=== PATIENT | male | born 1950 | race Caucasian/White ===

== ENCOUNTER 2018-12-22 09:35 | Inpatient (IN) ==
[2018-12-22] MEDS ORDERED: SODIUM CHLORIDE 0.9% 500 ML IV SCH (10:00)
[2018-12-22 10:09] LABS: Basophils # (auto) 0.03 K/uL (0-0.2); Basophils % (auto) 0.3 %; Hematocrit (blood only) 44.3 % (42-52); Hemoglobin 15.5 g/dL (14.0-18.0); Immature Granulocytes # (auto) 0.02 K/uL (0.00-0.02); Immature Granulocytes % (auto) 0.2 %; Mean Corpuscular Volume 80.8 fL (80-100); Mean Platelet Volume 10.4 fL (7.4-10.4); Monocytes # (auto) 0.59 K/uL (0.11-0.59); Monocytes % (auto) 5.1 %; Neutrophils # (auto) 10.02 K/uL (1.4-6.5); Neutrophils % (auto) 87.4 %; Platelet Count 208 K/uL (130-400); RDW Coefficient of Variation 12.9 % (11.5-14.5); RDW Standard Deviation 37.8 fL (36.4-46.3); Red Blood Count 5.48 M/uL (4.7-6.1); White Blood Count 11.46 K/uL (4.8-10.8)
--- NOTE | 2018-12-22 10:15 | XRay Report ---
XR chest 1V portable HISTORY: 68 years-old Male weakness acute weakness COMPARISON: Chest radiograph 08/04/2008 TECHNIQUE: Portable AP view of the chest FINDINGS: Cardiomediastinal and hilar silhouettes are within normal limits. There is no pneumothorax, pleural e ffusion, focal airspace consolidation or overt pulmonary edema. Bones of the chest appear grossly int act. IMPRESSION: No acute process. The above report was generated using voice recognition software. It may contain grammatical, syntax o r spelling errors. Electronically signed by: Hemanth Acuña M.D. 12/22/2018 10:14 AM
[2018-12-22 10:16] LABS: Alanine Aminotransferase 33 U/L (12-78); Albumin Level 3.6 gm/dl (3.4-5.0); Aspartate Aminotransferase 33 U/L (15-37); BUN Creatinine Ratio 12.4 (10-20); Blood Urea Nitrogen 14 mg/dl (7-18); Calcium 8.9 mg/dl (8.5-10.1); Carbon Dioxide 27 mmol/L (21-32); Chloride 98 mmol/L (98-107); Creatinine Clr Calc Pharmacy 80.9 ml/min; Est GFR (African American) 80.6; Est GFR (Non-African American) 69.6; Glucose 167 mg/dl (70-99); Potassium 3.9 mmol/L (3.5-5.1); Sodium 134 mmol/L (136-145)
[2018-12-22 10:22] LABS: Prothrombin Time 10.4 Seconds (9.0-12.0)
[2018-12-22 10:27] LABS: Albumin Globulin Ratio 0.8 (0.9-2); Alkaline Phosphatase 76 U/L (45-117); Globulin 4.3 gm/dl (2.5-4.0); Total Protein 7.9 gm/dl (6.4-8.2); Troponin I < 0.015 ng/ml (0-0.045)
--- NOTE | 2018-12-22 10:56 | CT Scan Report ---
CT head/brain wo con CLINICAL HISTORY: 68 years-old Male with left sided weakness. Acute strokelike symptoms with left-si ded weakness TECHNIQUE: Multiple axial CT images of the head were obtained without contrast. A dose lowering tech nique was utilized adhering to the principles of ALARA. CT DOSE: 537.48 mGy.cm COMPARISON: None. FINDINGS: Study limited secondary to patient positioning and motion artifact. No acute intracranial hemorrhage, midline shift, intracranial mass, hydrocephalus, territorial ischemia or abnormal extra-axial collec tion. Age-related involutional changes. Scattered ill-defined hypodensities about the white matter lopez ggest chronic microvascular ischemic changes. The calvarium is intact. Note is made of disconjugate gaze. Soft tissues are unremarkable. The parana esme sinuses, mastoid air cells, and middle ear cavities are clear. IMPRESSION: No acute intracranial abnormality. The above report was generated using voice recognition software. It may contain grammatical, syntax o r spelling errors. Electronically signed by: Hemanth Acuña M.D. 12/22/2018 10:55 AM
[2018-12-22] MEDS ORDERED: ASPIRIN CHEW 324 MG PO STA ×2 (11:27→11:28)
[2018-12-22] MEDS ORDERED: HydrALAZINE HCL 20 MG/ML VIAL IV ONE (11:28)
--- NOTE | 2018-12-22 11:32 | Emergency Department Note ---
Entered by Marlon Ramirez acting as a scribe for Memo Sebastian DO History of Present Illness General Chief complaint: Weakness Time Seen by Provider: 12/22/18 09:49 Source: patient and family (girlfriend) Mode of arrival: EMS History of Present Illness Provider complaint: weakness Onset (ago): day(s) (last night around 1999) Location: upper extremity, lower extremity and left Pain Consistency: + other (sudden) Quality: + other (weakness) Associated symptoms: + confusion and + other (left leg feels like it's "wrapped in concrete") The patient is a 68 year old male who presents to the Emergency Room via EMS with complaints of sudden weakness that started in the middle of the night last night. The patient reports that around [address] home from [facility] he noticed slight pins and needles in his left arm. The patient further reports that he fell off the couch and reports he was unable to get up because his arm kept giving out. The patient's girl friend reports on the way home from [facility], the patient experienced a short episode of confusion and asked what bowen he should be in to go home which is atypical for him. She denies that the patient had any other episodes of confusion. The patient also reports that his left leg feels like it's "wrapped in concrete." The patient's girlfriend states that she found the patient on the floor near the couch this morning and reports that the patient was unable to get up and walk so EMS was called. The patient states his weakness has stayed about the same. The patient denies any other medical problems, prescribed medications, alcohol or tobacco use. Home Medications Home Medications Medication Instructions Recorded Confirmed Type No Known Home Medications 12/22/18 12/22/18 History Allergies Allergy/AdvReac Type Severity Reaction Status Date / Time No Known Allergies Allergy Unverified 12/22/18 09:57 Past Med/Surg History Medical History No known health problems Surgical History H/O arthroscopic knee surgery History of excision of pilonidal cyst History of vasectomy History of tonsillectomy and adenoidectomy Family History Father , 82 T2DM (type 2 diabetes mellitus) CAD (coronary artery disease) Multiple complications of type 2 diabetes mellitus Mother T2DM (type 2 diabetes mellitus) Other Family history of diabetes mellitus Social History marital status: Single Current Living Situation: Significant Other Current Living Situation Comment: Lives with girlfriend Other Information That Helps Us Care for You: No Feels Safe at Home: Yes Safety Concerns: Feels Safe At This Time Smoking Status: Current some day smoker Tobacco Type: smokeless tobacco Cigarettes per Day: Quit smoking 10 + years ago; chews 1 can q3days Second Hand Exposure: No Tobacco Cessation Education Requested by Patient: No Hx Alcohol Use: Yes Alcohol Intake Frequency: holidays/special occasions only Hx Substance Use: No Beliefs That Will Affect Care: None Preferred Language: Yi Communication Ability: Effective Review of Systems See HPI for pertinent positives & negatives. and A total of 10 systems reviewed and were otherwise negative Physical Exam Vital Signs Vital Signs - 24 hr 12/22/18 09:12 12/22/18 09:34 12/22/18 09:41 Temperature 37.1 C Temperature Source Oral Sepsis Recent Fever Within 48 Hours No Sepsis Action Taken by Nursing No Action Required Pulse Rate 75 74 74 Pulse Rhythm Regular Pulse Strength Normal Respiratory Rate 20 21 24 Respiratory Effort / Characteristics Non-Labored Respiratory Depth Normal Respiratory Pattern Regular Blood Pressure 201/117 H 201/117 H Blood Pressure Mean 145 145 Blood Pressure Position Lying Pulse Oximetry 94 96 96 Oxygen Delivery Method Room Air 12/22/18 09:50 12/22/18 09:58 12/22/18 10:00 Temperature Temperature Source Sepsis Recent Fever Within 48 Hours Sepsis Action Taken by Nursing Pulse Rate 71 78 Pulse Rhythm Pulse Strength Respiratory Rate 16 14 Respiratory Effort / Characteristics Respiratory Depth Respiratory Pattern Blood Pressure Blood Pressure Mean Blood Pressure Position Pulse Oximetry 97 94 97 Oxygen Delivery Method Room Air 12/22/18 10:10 12/22/18 10:20 12/22/18 10:30 Temperature Temperature Source Sepsis Recent Fever Within 48 Hours Sepsis Action Taken by Nursing Pulse Rate 80 76 74 Pulse Rhythm Pulse Strength Respiratory Rate 17 20 16 Respiratory Effort / Characteristics Respiratory Depth Respiratory Pattern Blood Pressure Blood Pressure Mean Blood Pressure Position Pulse Oximetry 96 97 96 Oxygen Delivery Method 12/22/18 10:49 12/22/18 10:50 12/22/18 10:51 Temperature Temperature Source Sepsis Recent Fever Within 48 Hours Sepsis Action Taken by Nursing Pulse Rate 76 70 75 Pulse Rhythm Pulse Strength Respiratory Rate 11 L 19 20 Respiratory Effort / Characteristics Respiratory Depth Respiratory Pattern Blood Pressure 177/106 H Blood Pressure Mean 129 Blood Pressure Position Pulse Oximetry 96 96 Oxygen Delivery Method 12/22/18 11:00 12/22/18 11:10 12/22/18 11:20 Temperature Temperature Source Sepsis Recent Fever Within 48 Hours Sepsis Action Taken by Nursing Pulse Rate 68 79 76 Pulse Rhythm Pulse Strength Respiratory Rate 18 20 26 H Respiratory Effort / Characteristics Respiratory Depth Respiratory Pattern Blood Pressure Blood Pressure Mean Blood Pressure Position Pulse Oximetry 96 Oxygen Delivery Method 12/22/18 11:28 12/22/18 11:30 12/22/18 11:32 Temperature Temperature Source Sepsis Recent Fever Within 48 Hours Sepsis Action Taken by Nursing Pulse Rate 78 76 78 Pulse Rhythm Pulse Strength Respiratory Rate 16 18 14 Respiratory Effort / Characteristics Respiratory Depth Respiratory Pattern Blood Pressure 202/128 H 199/117 H Blood Pressure Mean 152 144 Blood Pressure Position Pulse Oximetry 96 97 93 Oxygen Delivery Method 12/22/18 11:40 12/22/18 11:50 12/22/18 12:00 Temperature Temperature Source Sepsis Recent Fever Within 48 Hours Sepsis Action Taken by Nursing Pulse Rate 76 75 74 Pulse Rhythm Pulse Strength Respiratory Rate 15 18 19 Respiratory Effort / Characteristics Respiratory Depth Respiratory Pattern Blood Pressure Blood Pressure Mean Blood Pressure Position Pulse Oximetry 95 96 Oxygen Delivery Method 12/22/18 12:04 12/22/18 12:10 12/22/18 12:20 Temperature Temperature Source Sepsis Recent Fever Within 48 Hours Sepsis Action Taken by Nursing Pulse Rate 75 81 Pulse Rhythm Pulse Strength Respiratory Rate 16 18 Respiratory Effort / Characteristics Non-Labored Spontaneous Respiratory Depth Normal Respiratory Pattern Regular Blood Pressure Blood Pressure Mean Blood Pressure Position Pulse Oximetry 98 Oxygen Delivery Method Room Air 12/22/18 12:30 12/22/18 12:32 12/22/18 12:34 Temperature Temperature Source Sepsis Recent Fever Within 48 Hours Sepsis Action Taken by Nursing Pulse Rate 78 77 79 Pulse Rhythm Pulse Strength Respiratory Rate 15 25 H 15 Respiratory Effort / Characteristics Respiratory Depth Respiratory Pattern Blood Pressure 195/128 H Blood Pressure Mean 150 Blood Pressure Position Pulse Oximetry 97 97 97 Oxygen Delivery Method CONSTITUTIONAL/VITAL SIGNS: Reviewed / noted above. GENERAL: Non-toxic in appearance. INTEGUMENTARY: Warm, dry, and Colon. HEAD: Normocephalic. EYES: without scleral icterus or trauma. ENT/OROPHARYNX: clear and moist. LYMPHADENOPATHY/NECK: Is supple without lymphadenopathy or meningismus. RESPIRATORY: Lungs clear and equal. CARDIOVASCULAR: Regular rate and rhythm. GI/ABDOMEN: Soft and nontender. No organomegaly or pulsatile mass. No rebound or guarding. Normal bowel sounds. EXTREMITIES: Warm and well perfused. Moderate weakness to left arm and left leg. BACK: No CVA tenderness. NEUROLOGICAL: Intact without focal deficits. PSYCHIATRIC: normal affect. MUSCULOSKELETAL: Normally developed with good muscle tone. Course 949: Past medical records reviewed. The patient was evaluated in room A10, and a complete history and physical examination were performed. 1135: I reviewed the patient's case with Dr. Daily Loda Neurology. 1138: I reviewed the patient's case with Anna Schulte PA-C. She and her attending[facility] the patient for further management. Reevaluation(s) Reevaluation #1: Dr. Calhoun [facility] Time: 11:35 Administered Medications Ioversol (Optiray 320 125ml) 119 ml IV ONCE PRN PRN Reason: Interaction Checking Stop: 12/26/18 12:47 Last Admin: 12/22/18 12:49 Dose: 119 ml Discontinued Medications Al Hydrox/Mg Hydrox/Simethicone () 1 dose PO ONE ONE Stop: 12/22/18 11:35 Last Admin: 12/22/18 12:09 Dose: Not Given Al Hydrox/Mg Hydrox/Simethicone (Maalox) Confirm Administered Dose 30 ml .ROUTE .STK-MED ONE Stop: 12/22/18 12:08 Last Admin: 12/22/18 12:09 Dose: 30 ml Admin: 12/22/18 12:09 Dose: 30 ml Aspirin (Aspirin) 324 mg PO NOW STA Stop: 12/22/18 11:28 Last Admin: 12/22/18 12:09 Dose: 324 mg Aspirin (Aspirin) 324 mg PO NOW STA Stop: 12/22/18 11:29 Last Admin: 12/22/18 12:09 Dose: Not Given Hydralazine HCl (Hydralazine Hcl) 5 mg IV NOW ONE Stop: 12/22/18 11:29 Last Admin: 12/22/18 12:10 Dose: 5 mg Sodium Chloride (Nss) 500 mls @ 999 mls/hr IV .Q31M MARIA D Stop: 12/22/18 10:30 Last Infusion: 12/22/18 10:46 Dose: 0 mls/hr Admin: 12/22/18 10:03 Dose: 999 mls/hr Lidocaine HCl (Viscous Lidocaine 2%) Confirm Administered Dose 15 ml .ROUTE .STK -MED ONE Stop: 12/22/18 12:08 Last Admin: 12/22/18 12:09 Dose: 7.5 ml Morphine Sulfate (Morphine Sulfate) 4 mg IV NOW STA Stop: 12/22/18 12:40 Last Admin: 12/22/18 13:11 Dose: 4 mg Medical Decision Making Differential Diagnosis Differential diagnosis: Etiologies such as metabolic, infection, hypo/hyperglycemia, electrolyte abnormalities, cardiac sources, intracerebral event, toxicologic, neurologic, as well as others were entertained. Medical Records Attestation: I reviewed the patient's medical records. Home Medications Current Medication List: was personally reviewed by me Laboratory Data Attestation: I reviewed the patient's lab results. Result diagrams: 12/22/18 09:40 12/22/18 09:40 Lab Results 12/22/18 12/22/18 12/22/18 Range/Units 09:40 09:40 09:40 WBC 11.46 H (4.8-10.8) K/uL RBC 5.48 (4.7-6.1) M/uL Hgb 15.5 (14.0-18.0) g/dL Hct 44.3 (42-52) % MCV 80.8 (80-100) fL MCH 28.3 (25-34) pg MCHC 35.0 (32-36) g/dL RDW Std Deviation 37.8 (36.4-46.3) fL RDW Coeff of Sun 12.9 (11.5-14.5) % Plt Count 208 (130-400) K/uL MPV 10.4 (7.4-10.4) fL Immature Gran % (Auto) 0.2 % Neut % (Auto) 87.4 % Lymph % (Auto) 7.0 % [place] % (Auto) 5.1 % Eos % (Auto) 0.0 % Baso % (Auto) 0.3 % Immature Gran # (Auto) 0.02 (0.00-0.02) K/uL Neut # (Auto) 10.02 H (1.4-6.5) K/uL Lymph # (Auto) 0.80 L (1.2-3.4) K/uL [place] # (Auto) 0.59 (0.11-0.59) K/uL Eos # (Auto) 0.00 (0-0.5) K/uL Baso # (Auto) 0.03 (0-0.2) K/uL PT 10.4 (9.0-12.0) Seconds INR 1.0 (0.9-1.1) Sodium 134 L (136-145) mmol/L Potassium 3.9 (3.5-5.1) mmol/L Chloride 98 (98-107) mmol/L Carbon Dioxide 27 (21-32) mmol/L Anion Gap 9.0 (3-11) BUN 14 (7-18) mg/dl Creatinine 1.10 (0.6-1.4) mg/dl Est Cr Clr Drug Dosing 80.9 ml/min Est GFR ( Amer) 80.6 Est GFR (Non-Af Amer) 69.6 BUN/Creatinine Ratio 12.4 (10-20) Glucose 167 H (70-99) mg/dl POC Glucose (70-99) Estimat Average Glucose mg/dl Hemoglobin A1c (4.5-5.6) % Calcium 8.9 (8.5-10.1) mg/dl Total Bilirubin 1.0 (0.2-1) mg/dl AST 33 (15-37) U/L ALT 33 (12-78) U/L Alkaline Phosphatase 76 (45-117) U/L Troponin I < 0.015 (0-0.045) ng/ml Total Protein 7.9 (6.4-8.2) gm/dl Albumin 3.6 (3.4-5.0) gm/dl Globulin 4.3 H (2.5-4.0) gm/dl Albumin/Globulin Ratio 0.8 L (0.9-2) TSH 2.680 (0.300-4.500) uIu/ml 12/22/18 12/22/18 Range/Units 09:40 09:43 WBC (4.8-10.8) K/uL RBC (4.7-6.1) M/uL Hgb (14.0-18.0) g/dL Hct (42-52) % MCV (80-100) fL MCH (25-34) pg MCHC (32-36) g/dL RDW Std Deviation (36.4-46.3) fL RDW Coeff of Sun (11.5-14.5) % Plt Count (130-400) K/uL MPV (7.4-10.4) fL Immature Gran % (Auto) % Neut % (Auto) % Lymph % (Auto) % [place] % (Auto) % Eos % (Auto) % Baso % (Auto) % Immature Gran # (Auto) (0.00-0.02) K/uL Neut # (Auto) (1.4-6.5) K/uL Lymph # (Auto) (1.2-3.4) K/uL [place] # (Auto) (0.11-0.59) K/uL Eos # (Auto) (0-0.5) K/uL Baso # (Auto) (0-0.2) K/uL PT (9.0-12.0) Seconds INR (0.9-1.1) Sodium (136-145) mmol/L Potassium (3.5-5.1) mmol/L Chloride (98-107) mmol/L Carbon Dioxide (21-32) mmol/L Anion Gap (3-11) BUN (7-18) mg/dl Creatinine (0.6-1.4) mg/dl Est Cr Clr Drug Dosing ml/min Est GFR ( Amer) Est GFR (Non-Af Amer) BUN/Creatinine Ratio (10-20) Glucose (70-99) mg/dl POC Glucose 160 H (70-99) Estimat Average Glucose 177 mg/dl Hemoglobin A1c 7.8 H (4.5-5.6) % Calcium (8.5-10.1) mg/dl Total Bilirubin (0.2-1) mg/dl AST (15-37) U/L ALT (12-78) U/L Alkaline Phosphatase (45-117) U/L Troponin I (0-0.045) ng/ml Total Protein (6.4-8.2) gm/dl Albumin (3.4-5.0) gm/dl Globulin (2.5-4.0) gm/dl Albumin/Globulin Ratio (0.9-2) TSH (0.300-4.500) uIu/ml Imaging Data Radiologist's Impression: Radiology results as stated below per my review and the radiologist's interpretation: XR chest 1V portable HISTORY: 68 years-old Male weakness acute weakness COMPARISON: Chest radiograph 08/04/2008 TECHNIQUE: Portable AP view of the chest FINDINGS: Cardiomediastinal and hilar silhouettes are within normal limits. There is no pneumothorax, pleural effusion, focal airspace consolidation or overt pulmonary edema. Bones of the chest appear grossly intact. IMPRESSION: No acute process. The above report was generated using voice recognition software. It may contain grammatical, syntax or spelling errors. Electronically signed by: Hemanth Acuña M.D. 12/22/2018 10:[address] head/brain wo con CLINICAL HISTORY: 68 years-old Male with left sided weakness. Acute strokelike symptoms with left-sided weakness TECHNIQUE: Multiple axial CT images of the head were obtained without contrast. A dose lowering technique was utilized adhering to the principles of ALARA. CT DOSE: 537.48 mGy.cm COMPARISON: None. FINDINGS: Study limited secondary to patient positioning and motion artifact. No acute intracranial hemorrhage, midline shift, intracranial mass, hydrocephalus, territorial ischemia or abnormal extra-axial collection. Age-related involutional changes. Scattered ill-defined hypodensities about the white matter suggest chronic microvascular ischemic changes. The calvarium is intact. Note is made of disconjugate gaze. Soft tissues are unremarkable. The paranasal sinuses, mastoid air cells, and middle ear cavities are clear. IMPRESSION: No acute intracranial abnormality. The above report was generated using voice recognition software. It may contain grammatical, syntax or spelling errors. Electronically signed by: Hemanth Acuña M.D. 12/22/2018 10:[address] angio neck with con, CT angio head w con CLINICAL HISTORY: 68 years-old Male with cva. Acute strokelike symptoms COMPARISON STUDY: CT head of same day TECHNIQUE: Following the IV administration of 119 ml of Optiray 320, CT angiogram of the neck was performed from the aortic arch to the skull apex. Images are reviewed in the axial, sagittal, and coronal planes. 3-D MIPS images are created and assessed. IV contrast was administered without complication. All measurements were calculated based on NASCET criteria. A dose lowering technique was utilized adhering to the principles of ALARA. CT DOSE: 570.13 mGy.cm FINDINGS: Normal three-vessel morphology of aortic arch. The imaged bilateral subclavian arteries are widely patent. Mild mostly atheromatous plaque formation about the bilateral carotid bulbs with less than 50% luminal narrowing. The bilateral internal carotid arteries are otherwise widely patent and unremarkable. Mild luminal narrowing at the proximal aspect of the left M1 segment on image 99 series 3 secondary to atheromatous plaque. The remainder of the bilateral middle and anterior cerebral arteries are unremarkable and widely patent. The anterior communicating artery appears normal. The vertebral arteries appear codominant and are widely patent without aneurysm , dissection, high-grade stenosis or proximal branch occlusion. Basilar artery is also patent and unremarkable. The bilateral posterior cerebral arteries appear widely patent and within normal limits. Cerebral venous sinuses are also patent and unremarkable. Lung apices appear generally clear without pneumothorax. Indeterminate 11 x 9 mm right tracheoesophageal recess lymph node. 10 mm hypodense nodule of the inferior right thyroid. No adenopathy. Soft tissues of the neck are otherwise unremarkable. Bones appear to be intact. Mild mucosal thickening of the maxillary and ethmoid sinuses. Multilevel spondylitic spurring with facet arthrosis of the spine. IMPRESSION: 1. Mild atheromatous plaque formation of the bilateral carotid bulbs results in less than 50% luminal narrowing bilaterally. 2. Otherwise unremarkable CTA without aneurysm, dissection, high-grade stenosis or proximal branch occlusion. 3. Incidental findings as above. The above report was generated using voice recognition software. It may contain grammatical, syntax or spelling errors. Electronically signed by: Hemanth Acuña M.D. 12/22/2018 1:[address] angio neck with con, CT angio head w con CLINICAL HISTORY: 68 years-old Male with cva. Acute strokelike symptoms COMPARISON STUDY: CT head of same day TECHNIQUE: Following the IV administration of 119 ml of Optiray 320, CT angiogram of the neck was performed from the aortic arch to the skull apex. Images are reviewed in the axial, sagittal, and coronal planes. 3-D MIPS images are created and assessed. IV contrast was administered without complication. All measurements were calculated based on NASCET criteria. A dose lowering technique was utilized adhering to the principles of ALARA. CT DOSE: 570.13 mGy.cm FINDINGS: Normal three-vessel morphology of aortic arch. The imaged bilateral subclavian arteries are widely patent. Mild mostly atheromatous plaque formation about the bilateral carotid bulbs with less than 50% luminal narrowing. The bilateral internal carotid arteries are otherwise widely patent and unremarkable. Mild luminal narrowing at the proximal aspect of the left M1 segment on image 99 series 3 secondary to atheromatous plaque. The remainder of the bilateral middle and anterior cerebral arteries are unremarkable and widely patent. The anterior communicating artery appears normal. The vertebral arteries appear codominant and are widely patent without aneurysm , dissection, high-grade stenosis or proximal branch occlusion. Basilar artery is also patent and unremarkable. The bilateral posterior cerebral arteries appear widely patent and within normal limits. Cerebral venous sinuses are also patent and unremarkable. Lung apices appear generally clear without pneumothorax. Indeterminate 11 x 9 mm right tracheoesophageal recess lymph node. 10 mm hypodense nodule of the inferior right thyroid. No adenopathy. Soft tissues of the neck are otherwise unremarkable. Bones appear to be intact. Mild mucosal thickening of the maxillary and ethmoid sinuses. Multilevel spondylitic spurring with facet arthrosis of the spine. IMPRESSION: 1. Mild atheromatous plaque formation of the bilateral carotid bulbs results in less than 50% luminal narrowing bilaterally. 2. Otherwise unremarkable CTA without aneurysm, dissection, high-grade stenosis or proximal branch occlusion. 3. Incidental findings as above. The above report was generated using voice recognition software. It may contain grammatical, syntax or spelling errors. Electronically signed by: Hemanth Acuña M.D. 12/22/2018 1:12 PM ECG Data Attestation: I personally reviewed and interpreted this ECG as follows: Indication: weakness Rate (beats per minute): 74 Rhythm: normal sinus Findings: no ST elevation and no ectopy Blood Pressure Blood Pressure Findings: Elevated blood pressure Blood Pressure Disposition: further management by hospitalist ENMANUEL Woodall This is a 68-year-old male who presents to the ED with a chief complaint of left -sided weakness. The patient states that he initially started having symptoms around 8 PM last evening, greater than 12 hours ago. He states that he started having some tingling some pins and needle sensation in his left arm. He states that he went to bed around 9 PM. He woke at some point through the night and felt that he could not move his left arm very well. He subsequently fell off of the couch. This morning he awoke and realized that he was unable to get up and walk because of left arm and left leg weakness. He was brought to the ED for evaluation. The patient denies any other significant symptoms. He is in no distress. His physical exam reveals and moderate left leg weakness and significant left arm weakness. He has no facial droop. He is noted to have hypertension. He states that he has not seen a doctor for many, many years. The CT scan of the brain was negative. CBC and chemistry panel was unremarkable. EKG shows a normal sinus rhythm. Troponin was negative. A chest x-ray did not show acute process. The patient was treated with aspirin 32 4 mg p.o. He was also given 5 mg IV hydralazine for his hypertension. I spoke with the hospitalist, who will see the patient for further evaluation and care. I did speak with Dr. Trejo about the patient. The patient will get CT angio of the head and neck and be admitted here for MRI and additional workup. The CT angios of the head did not show any acute/significant stenosis. Impression & Plan Acute CVA (cerebrovascular accident) Discharge Plan Visit Data Chief Complaint: Weakness ED Provider: Memo Sebastian Discharge Problem: Acute CVA (cerebrovascular accident) Patient Disposition: Being Evaluated by Hospitalist Forms Stand Alone Forms: My [facility] Prescriptions Prescriptions: No Action No Known Home Medications RF: 0 Referrals Referrals: PCP,NO [Primary Care Provider] - The scribe's documentation has been prepared under my direction and personally reviewed by me in its entirety. I confirm that the note above accurately reflects all work, treatment, procedures, and medical decision making performed by me.
[2018-12-22] MEDS ORDERED: GI COCKTAIL ED USE PO ONE (11:34)
[2018-12-22] MEDS ORDERED: LIDOCAINE HCL VISCOUS SOLN 2% 15 ML UDC ONE (12:07)
[2018-12-22] MEDS: ALUMINUM/MAGNESIUM SUSP 30 ML UDC ONE (12:09)
[2018-12-22] MEDS ORDERED: MoRPHine SULFATE 4 MG/ML 1 ML CARP\\VIAL IV STA (12:39)
--- NOTE | 2018-12-22 12:46 | History & Physical Report ---
Date of Service December 22, 2018 Assessment & Plan (1) Acute CVA (cerebrovascular accident): etiology of CVA currently undetermined, work up below to delineate etiology of CVA ddx but not limited to: large artery atherosclerosis, cardioembolic, occlusive -admit to telemetry under CVA protocol/workup -Neurology consult, Dr. Robles -MRI w/o contrast -CTA Head/Neck -Echocardiogram -PT/OT/ST -A1C, Fasting lipid panel, CBC, BMP -ASA 81mg daily and high dose atorvastatin 40mg hs -Per [facility] De [facility], dysphagia screened passed (2) Elevated blood pressure reading: -normal physiologic response in setting of acute CVA -allow permissive HTN 24-48hr -will not treat unless >220/110, based on diastolic reading of >110 in ED he was treated with hydralazine (3) Hyperglycemia: -strong FH of T2DM, glucose upon arrival 167 -Check A1C -Novolog sliding scale per protocol and heart healthy/DM diet until A1C returns (4) DVT prophylaxis: -Lovenox 40mg SQ daily Disposition: to be determined, may need acute rehab due to current deficits Follow up: Patient will need to establish care with PCP upon discharge Patient seen in collaboration with Dr. Calhoun, please see addendum. Starting 12/23/18 patient will be followed by Dr. Seugndo. History of Present Illness Primary Care Provider: NO PCP This is a 68 year old male with no known medical problems to date who presents to [facility] ED secondary to L arm/leg weakness x 6 hours. Sister and GF are at bedside. Symptoms initially began last evening around 7:30-8pm when patient was going to [facility] and noticed numbness/tingling to L arm that persisted overnight. He sleeps on couch and when woke up rolled off the couch and was unable to get up due to profound weakness of L arm/leg. Also had incontinence of urine at the time. Currently complains of L arm/leg weakness, heartburn requesting medication. States he gets heartburn after eating certain foods and takes tums. This feels similar and describes it as a substernal burning sensation. Denies FISCHER, lightheaded, dizziness, change in vision, change in hearing, difficulty with speech or swallowing. He denies any recent illness, f/ c/s, chest pain, sob, cannon, hemoptysis, n/v/d, abdominal pain. Patient was last seen by provider approx 6 years ago when he had knee surgery for meniscus repair. He does not have a PCP. Also states his last shower was 2 weeks ago, presents with very poor hygeine. Allergies Allergy/AdvReac Type Severity Reaction Status Date / Time No Known Allergies Allergy Unverified 12/22/18 09:57 Home Medications Home Medications Medication Instructions Recorded Confirmed Type No Known Home Medications 12/22/18 12/22/18 History Past Med/Surg History Medical History No known health problems Surgical History H/O arthroscopic knee surgery History of excision of pilonidal cyst History of vasectomy History of tonsillectomy and adenoidectomy Family History Father , 82 T2DM (type 2 diabetes mellitus) CAD (coronary artery disease) Multiple complications of type 2 diabetes mellitus Mother T2DM (type 2 diabetes mellitus) Other Family history of diabetes mellitus Social History marital status: Single Current Living Situation: Significant Other Current Living Situation Comment: Lives with girlfriend Other Information That Helps Us Care for You: No Feels Safe at Home: Yes Safety Concerns: Feels Safe At This Time Smoking Status: Current some day smoker Tobacco Type: smokeless tobacco Cigarettes per Day: Quit smoking 10 + years ago; chews 1 can q3days Second Hand Exposure: No Tobacco Cessation Education Requested by Patient: No Hx Alcohol Use: Yes Alcohol Intake Frequency: holidays/special occasions only Hx Substance Use: No Beliefs That Will Affect Care: None Preferred Language: Albanian Communication Ability: Effective Physical Exam 2 Vital Signs (Past 24 Hours): Last Vital Signs Temp 37.1 C 12/22/18 09:12 Pulse 74 12/22/18 12:00 Resp 19 12/22/18 12:00 BP 199/117 H 12/22/18 11:32 Pulse Ox 96 12/22/18 12:00 Physical Exam: Gen: Morbidly obese male, poor hygeine, excessive facial hair, NAD, lying in bed, pleasant, conversing easily and appropriately Head: Normocephalic, Atraumatic Eyes: Sclera normal, mild bilateral conjunctival injection with tearing, PERRLA , EOMI ENT: Gross hearing intact, normal pharynx, mucous membranes moist Neck: supple, no adenopathy, No JVD, no bruit, Resp: Clear to auscultation b/l, no wheeze, rales, rhonchi. Normal insp/exp effort, no accessory muscle use CV: Regular rate, regular rhythm, no murmur, rub, gallop, or ectopy Abd: +obesity, +BS x 4, soft, nontender, nondistended Musculoskeletal: moves extremities active rom x 2, Decreased active ROM to LUE and LLE, strength 3/5 LUE/LLE, 5/5 RUE/RLE, inability to bioinformatics specialist L hand, good bioinformatics specialist stength RUE. reflexes brisk and +2 b/l Extremities: No edema bilaterally, pedal pulse +1 and equal Skin: warm, dry, no rash, dirt crusted plaques to b/l knee, hands, fingers, toe/ plantar aspect feet, poor hygeine, no rash, negative turgor, cap refill < 2sec Neuro: Alert and oriented x 3, speech normal, good mood/affect, cran nerve 2-12 intact grossly : deferred Results & Data Laboratory Results Short CBC 12/22/18 Range/Units 09:40 WBC 11.46 H (4.8-10.8) K/uL Hgb 15.5 (14.0-18.0) g/dL Hct 44.3 (42-52) % Plt Count 208 (130-400) K/uL BMP 12/22/18 09:40 Sodium 134 L Potassium 3.9 Chloride 98 Carbon Dioxide 27 BUN 14 Creatinine 1.10 Glucose 167 H Calcium 8.9 Cardiac Enzymes 12/22/18 Range/Units 09:40 Troponin I < 0.015 (0-0.045) ng/ml Liver Function 12/22/18 Range/Units 09:40 Total Bilirubin 1.0 (0.2-1) mg/dl AST 33 (15-37) U/L ALT 33 (12-78) U/L Alkaline Phosphatase 76 (45-117) U/L Albumin 3.6 (3.4-5.0) gm/dl Diagnostic Findings CT Head: Study limited secondary to patient positioning and motion artifact. No acute intracranial hemorrhage, midline shift, intracranial mass, hydrocephalus, territorial ischemia or abnormal extra-axial collection. Age-related involutional changes. Scattered ill-defined hypodensities about the white matter suggest chronic microvascular ischemic changes. The calvarium is intact. Note is made of disconjugate gaze. Soft tissues are unremarkable. The paranasal sinuses, mastoid air cells, and middle ear cavities are clear. IMPRESSION: No acute intracranial abnormality. CXR: IMPRESSION: No acute process. ECG Rate (beats per minute): 74 Rhythm: normal sinus Additional Comments: QTC 490ms Code Status & VTE Plan Code Status Full Code VTE Prophylaxis Plan VTE Prophylaxis will be ordered: Yes Supervising Physician Co-Signing Physician Notes Numbness/Weakness of LUE-persistent, consistent with acute CVA. MRI pending. The patient is unkempt and does not see a physician regularly. He denies drinking or using drugs but does use snuff and has been without it now around 18 hours. He appears rather agitated up on the floor. Lower strength appears to be intact aside from dorsi and plantarflexion. Interestingly, the left upper extremity examined with no ability to handgrip, but the patient could form a fist. He then had no ability to perform elbow extension or flexion, but was able to push my hand away from his abdomen without an issue. He also was able to take his right hand and pull his left arm straight up into the air without an issue, where most people with acute stroke who have weakness also have stiffness and decreased ROM. He was found to be a diabetic which he was not aware of, but does admit to being thirsty with frequent urination recently. We are not treating his elevated BP at this time in the absence of ACS, encephalopathy or evidence of other end-organ damage to allow permissive HTN and promote cerebral perfusion pressure. However, his agitation related to nicotine withdraw is likely contributing. He is trying to climb out of bed but is too weak to go anywhere and is possibly going to need a one-to-one observation despite mental clarity. He reports feeling claustrophobic and is pulling at his tele box and referring to his IV site as contributing to this feeling of being restricted. Therefore, will schedule some Ativan and add a Nicotine patch. Lj,
[2018-12-22] MEDS ORDERED: OPTIRAY 320 125ml IV PRN (12:48)
--- NOTE | 2018-12-22 13:13 | CT Scan Report ---
CT angio neck with con, CT angio head w con CLINICAL HISTORY: 68 years-old Male with cva. Acute strokelike symptoms COMPARISON STUDY: CT head of same day TECHNIQUE: Following the IV administration of 119 ml of Optiray 320, CT angiogram of the neck was per formed from the aortic arch to the skull apex. Images are reviewed in the axial, sagittal, and rader l planes. 3-D MIPS images are created and assessed. IV contrast was administered without complication . All measurements were calculated based on NASCET criteria. A dose lowering technique was utilized adhering to the principles of ALARA. CT DOSE: 570.13 mGy.cm FINDINGS: Normal three-vessel morphology of aortic arch. The imaged bilateral subclavian arteries are widely pa tent. Mild mostly atheromatous plaque formation about the bilateral carotid bulbs with less than 50% luminal narrowing. The bilateral internal carotid arteries are otherwise widely patent and unremarkab le. Mild luminal narrowing at the proximal aspect of the left M1 segment on image 99 series 3 seconda ry to atheromatous plaque. The remainder of the bilateral middle and anterior cerebral arteries are u nremarkable and widely patent. The anterior communicating artery appears normal. The vertebral arteries appear codominant and are widely patent without aneurysm, dissection, high-gra de stenosis or proximal branch occlusion. Basilar artery is also patent and unremarkable. The bilater al posterior cerebral arteries appear widely patent and within normal limits. Cerebral venous sinuses are also patent and unremarkable. Lung apices appear generally clear without pneumothorax. Indeterminate 11 x 9 mm right tracheoesophag eal recess lymph node. 10 mm hypodense nodule of the inferior right thyroid. No adenopathy. Soft tiss ues of the neck are otherwise unremarkable. Bones appear to be intact. Mild mucosal thickening of the maxillary and ethmoid sinuses. Multilevel spondylitic spurring with facet arthrosis of the spine. IMPRESSION: 1. Mild atheromatous plaque formation of the bilateral carotid bulbs results in less than 50% luminal narrowing bilaterally. 2. Otherwise unremarkable CTA without aneurysm, dissection, high-grade stenosis or proximal branch oc clusion. 3. Incidental findings as above. The above report was generated using voice recognition software. It may contain grammatical, syntax o r spelling errors. Electronically signed by: Hemanth Acuña M.D. 12/22/2018 1:12 PM
[2018-12-22 13:18] LABS: Estimated Average Glucose 177 mg/dl; Hemoglobin A1C 7.8 % (4.5-5.6)
[2018-12-22] MEDS ORDERED: ACETAMINOPHEN 325 MG TAB PO PRN (14:10)
[2018-12-22] MEDS ORDERED: DEXTROSE 50% 50 ML SYRINGE IV PRN (14:10)
[2018-12-22] MEDS ORDERED: CARBOHYDRATES FOR HYPOGLYCEMIA PO PRN (14:10)
[2018-12-22] MEDS ORDERED: PHARMACIST DISCHARGE MED REC CONSULT PRN (14:10)
[2018-12-22] MEDS ORDERED: GLUCOSE 40% GEL 15 GM TUBE PO PRN (14:10)
[2018-12-22] MEDS ORDERED: GLUCOSE 10 TABS/TUBE PO PRN (14:10)
[2018-12-22] MEDS ORDERED: ALUMINUM/MAGNESIUM SUSP 30 ML UDC PO PRN (14:10)
[2018-12-22] MEDS ORDERED: POLYETHYLENE (MIRALAX) 17 GM PACK PO PRN (14:10)
[2018-12-22] MEDS ORDERED: ATORVASTATIN 40 MG TAB PO SCH (14:10)
[2018-12-22] MEDS ORDERED: ONDANSETRON INJ 2 MG/ML 2 ML VIAL IV PRN (14:10)
[2018-12-22] MEDS ORDERED: GLUCAGON FOR INJ 1 MG VIAL SQ PRN (14:10)
[2018-12-22] MEDS ORDERED: MAGNESIUM HYDROXIDE SUSP 30 ML UDC PO PRN (14:10)
[2018-12-22] MEDS ORDERED: PERFLUTREN LIPID MICROSPHERE (DEFINITY) IV ONE (15:27)
[2018-12-22] MEDS ORDERED: LORazepam 2 MG TAB PO STA (16:49)
[2018-12-22] MEDS ORDERED: LORazepam 0.5 MG/1 ML VIAL IV STA (16:53)
[2018-12-22] MEDS ORDERED: LORazepam 2 MG/4 ML VIAL ONE (16:55)
[2018-12-22] MEDS: NICOTINE 21 MG/24 HR TDSY TD SCH (17:28)
[2018-12-22] MEDS ORDERED: HALOPERIDOL LACTATE 5 MG/ML 1 ML VIAL IV STA (18:08)
[2018-12-22] MEDS: INSULIN ASPART 100 UNITS/ML 3 ML PEN SC SCH ×2 (18:34→21:06)
[2018-12-22] MEDS ORDERED: PHENobarbital sodium 130 MG/ML VIAL ONE (18:43)
[2018-12-22 19:23] LABS: Hematocrit (blood only) 43.4 % (42-52); Mean Corpuscular Volume 81.4 fL (80-100); Mean Platelet Volume 10.3 fL (7.4-10.4); Platelet Count 206 K/uL (130-400); RDW Coefficient of Variation 13.2 % (11.5-14.5); Red Blood Count 5.33 M/uL (4.7-6.1); White Blood Count 12.92 K/uL (4.8-10.8)
[2018-12-22 19:24] LABS: Mean Corpuscular Hgb Conc 34.6 g/dL (32-36)
[2018-12-22 19:49] LABS: Albumin Level 3.7 gm/dl (3.4-5.0); BUN Creatinine Ratio 11.3 (10-20); Calcium 8.7 mg/dl (8.5-10.1); Creatinine Clr Calc Pharmacy 68.7 ml/min; Est GFR (African American) 66.5; Est GFR (Non-African American) 57.4
[2018-12-22 19:50] LABS: Potassium 3.2 mmol/L (3.5-5.1)
[2018-12-22 19:58] LABS: Albumin Globulin Ratio 0.9 (0.9-2); Bilirubin,Total 1.2 mg/dl (0.2-1); Total Protein 7.7 gm/dl (6.4-8.2)
[2018-12-22 20:09] LABS: Appearance Urine Cloudy (Clear); Bacteria Urine Automated Negative (Negative); Blood Urine 2+ (Negative); Color Urine Dark Yellow; Epithelial Cell Urine Auto >30 /lpf (0-5); Glucose Urine UA Trace (Negative); Ketones Urine 1+ (Negative); Leukocyte Esterase Urine Negative (Negative); Nitrite Urine Negative (Negative); Protein Urine 2+ (Negative); Specific Gravity Urine > 1.045 (1.000-1.030); Urobilinogen Urine Negative (Negative)
[2018-12-22 20:12] LABS: Bilirubin Urine Negative (Negative); Ictotest Urine Negative (Negative)
[2018-12-22] MEDS: FOLIC ACID 1 MG in SYRINGE 9.8 ML IV SCH (20:13)
[2018-12-22] MEDS: THIAMINE HCL 200 MG in SODIUM CHLORIDE 0.9% 50 ML IV SCH (20:13)
[2018-12-22 20:20] LABS: Cast Urine Automated 0 /lpf (0-5)
[2018-12-22 20:38] LABS: Amphetamines+Metham, Urine Neg (Neg); Barbiturates, Urine Pos (Neg); Benzodiazepine, Urine Neg (Neg); Cocaine, Urine Neg (Neg); MDMA (Ecstacy), Urine Neg (Neg); Methadone, Urine Neg (Neg); Opiate, Urine Pos (Neg); Phencyclidine, Urine Neg (Neg)
[2018-12-22] MEDS ORDERED: LORazepam 2 MG TAB PO SCH (22:00)
[2018-12-22] MEDS: SODIUM CHLORIDE 0.9% 1000ML 1,000 ML IV SCH (22:51)
[2018-12-23 04:52] LABS: Basophils # (auto) 0.03 K/uL (0-0.2); Basophils % (auto) 0.3 %; Eosinophils # (auto) 0.02 K/uL (0-0.5); Eosinophils % (auto) 0.2 %; Hematocrit (blood only) 43.5 % (42-52); Hemoglobin 14.8 g/dL (14.0-18.0); Immature Granulocytes # (auto) 0.03 K/uL (0.00-0.02); Immature Granulocytes % (auto) 0.3 %; Lymphocytes # (auto) 1.55 K/uL (1.2-3.4); Lymphocytes % (auto) 13.3 %; Mean Corpuscular Volume 83.3 fL (80-100); Mean Platelet Volume 10.7 fL (7.4-10.4); Monocytes # (auto) 1.03 K/uL (0.11-0.59); Monocytes % (auto) 8.8 %; Neutrophils # (auto) 9.02 K/uL (1.4-6.5); Neutrophils % (auto) 77.1 %; Platelet Count 202 K/uL (130-400); RDW Coefficient of Variation 13.4 % (11.5-14.5); RDW Standard Deviation 39.6 fL (36.4-46.3); Red Blood Count 5.22 M/uL (4.7-6.1); White Blood Count 11.68 K/uL (4.8-10.8)
[2018-12-23 05:30] LABS: BUN Creatinine Ratio 15.6 (10-20); Calcium 8.8 mg/dl (8.5-10.1); Creatinine Clr Calc Pharmacy 77.1 ml/min; Est GFR (African American) 76.4; Est GFR (Non-African American) 65.9; Phosphorus 2.8 mg/dl (2.5-4.9)
[2018-12-23 06:01] LABS: Potassium 3.4 mmol/L (3.5-5.1)
[2018-12-23 06:21] LABS: Magnesium 2.4 mg/dl (1.8-2.4)
[2018-12-23] MEDS ORDERED: POTASSIUM CHLORIDE 20 MEQ TABCR PO STA (06:28)
[2018-12-23] MEDS: POTASSIUM CHLORIDE / WTR 10 MEQ/100 ML PLCT IV SCH ×2 (06:41→07:45)
[2018-12-23] MEDS: INSULIN ASPART 100 UNITS/ML 3 ML PEN SC SCH ×3 (07:22→18:06)
[2018-12-23] MEDS: SODIUM CHLORIDE 0.9% 1000ML 1,000 ML IV SCH ×2 (07:46→18:05)
[2018-12-23] MEDS ORDERED: ASPIRIN 81 MG ECTAB PO SCH (09:00)
[2018-12-23] MEDS ORDERED: MIDAZOLAM HCL 5 MG/ML 1 ML VIAL IV ONE (09:42)
[2018-12-23] MEDS ORDERED: MIDAZOLAM HCL 5 MG/ML 1 ML VIAL ONE (09:44)
--- NOTE | 2018-12-23 10:37 | Magnetic Resonance Report ---
ADDENDUM After further consultation with the ICU physician regarding the patient's clinical presentation, thes e findings could also be compatible with encephalitis, the distribution specifically raising concern for herpes encephalitis. These findings were discussed with ICU physician by Dr. Ring on 12/23/2018 11:24 AM. Electronically signed by: Ramon Ring M.D. 12/23/2018 11:24 AM ORIGINAL REPORT MR brain wo con CLINICAL HISTORY: 68 years-old Male presenting with CVA. TECHNIQUE: Multisequence, multiplanar MR imaging of the brain was performed without the use of intrav enous contrast. IV contrast: None. COMPARISON: Noncontrast CT head from 12/22/2018. FINDINGS: Localizer images: Unremarkable. Proportional ventricular and sulcal prominence, likely age-related parenchymal volume loss. Restricte d diffusion in the right posterior cerebral artery distribution affecting the medial right temporal l obe and a limited portion of the right occipital lobe as well as the right thalamus. Associated T2/FL AIR hyperintensity of these regions suggests infarct at least 6-12 hours old. No mass effect or midline shift. No hemorrhage. No extra-axial fluid collection. T2 skull base flow voids preserved. Bone marrow signal intensity within the calvarium within normal l imits. IMPRESSION: 1. Acute infarct in the right posterior cerebral artery territory involving the medial right tempora l lobe, limited portion of the right occipital lobe, and right thalamus. This infarct is at least 6-1 2 hours old. No hemorrhage. The report will be called/faxed according to standard departmental protocol. Electronically signed by: Ramon Ring M.D. 12/23/2018 10:35 AM
[2018-12-23] MEDS ORDERED: ATORVASTATIN 40 MG TAB PO SCH (12:30)
[2018-12-23] MEDS: ENOXAPARIN INJ 40 MG/0.4 ML SYR SQ SCH (12:32)
[2018-12-23] MEDS: NICOTINE 21 MG/24 HR TDSY TD SCH (12:32)
--- NOTE | 2018-12-23 12:35 | Communication Note ---
Date of Service: December 23, 2018 I have evaluated this man, gone over his imaging studies, and discussed the case with Dr. Falk and Dr. Burris of the ICU staff he has had a right posterior circulation cerebrovascular accident likely involving perforating vessels originating from the right posterior cerebral artery and resulting in medial temporal, and sheila-thalamic areas of infarction and producing clinically a mild to moderate hemiparesis or at least hemisensory deficit with neglect and agitated delirium the latter is reported to occur in vascular events in this identical distribution and I do not think we need to postulate anything else going on here specifically and encephalitis or substance withdrawal, a nonorganic psychosis or toxic psychosis. That having been said his behavior will need to be managed with appropriate sedation, perhaps psychiatric consultation, tincture of time and he will be treated with antiplatelet agents only as we currently have no clear source of embolic infarction in the entire syndrome seems to have emerged over period of several hours implying a localized intracerebral vascular event involving small perforating vessels that would not be evaluated by current imaging techniques. I have dictated a complete history and physical which will be corrected later. The current note should serve as a truncated neurology consult. We will be assessing him again tomorrow. Daniel Robles MD
--- NOTE | 2018-12-23 13:41 | Consultation Report ---
DATE OF CONSULTATION: 12/23/2018 CONSULTATION FOR: Dr. Segundo. HISTORY OF PRESENT ILLNESS: The patient is 68 years old, is right handed, has no real primary care physician and presented to our Emergency Room yesterday at about 9:00 AM with confusion and some left-sided weakness. He was evaluated extensively in the Emergency Room. [place] [facility] was called and because of the delay in presentation here relative to the onset of the symptoms, which apparently had been the night prior, no TPA was felt to be indicated and the diagnosis of acute CVA was made despite the fact that the CTA of the neck and head and the actual CT of the brain did not show anything of significance. He did have a left-sided hemiparesis of mild degree, some confusion and the latter became more and more evident at this time when all on to the point, he became agitated, felt he was being smothered and required a lot of sedation. Eventually, an MRI was done which showed evidence for what appears to be a right posterior circulation distribution infarction involving the medial temporal lobe, the thalamus and the subcortical areas of the occipital cortex. Neurology is being consulted to establish what further needs to be done and there was some question raised about whether this might be an encephalitis based on the elevation of white count and a very slight fever that occurred shortly after the patient became more and more agitated after arrival. The history is as outlined and reviewed with significant other today indicates that he was at [facility] at 7:30 or 8:00 the night prior when he noticed some numbness and tingling in his left arm that persisted. He, on way back, was unable to find his way home, but otherwise felt well and help unload the groceries. Later he was found to have rolled off the couch, was unable to rise because of profound weakness of the left arm and leg, was incontinent of urine and had some heartburn and then became more and more agitated. PAST MEDICAL HISTORY: Really pretty benign in the sense that he really has not seen any physicians, so it is not known if he has any underlying diabetes, hypertension, dyslipidemia, coronary artery disease, etc. He does have a history of arthroscopic knee surgery. He had a pilonidal cyst, vasectomy and T and A, but is not taking any active medications. ALLERGIES: HAS NO DEFINED DRUG ALLERGIES. FAMILY HISTORY: Reveals that his father at age 82 of complications of diabetes, coronary artery disease. His mother also was diabetic. SOCIAL HISTORY: Reveals her to be single, living with significant other. There is some question of how much alcohol he has consumed. He was a smoker, but now has used snuff for the past 10 years. There is said to have apparently been some heavy ingestion of alcohol in the past, but none since [place]. He denies any other substance abuse. REVIEW OF SYSTEMS: Could really not be obtained with any reliable accuracy today cause of his agitation, confusion, but family members reported no recent febrile illnesses, upper respiratory tract or otherwise no exposure individuals with infectious illnesses of significance and generally overall pretty good health up until the onset of numbness and tingling at [facility]. PHYSICAL EXAMINATION: VITAL SIGNS: On admission revealed temperature of 37.1, pulse was 74, respirations were 19, blood pressure 199/117 and this has fallen into normal range with appropriate management. GENERAL: He was moderately obese, had very poor hygiene, has excessive facial hair, was little confused. HEENT: Examination was grossly intact. LUNGS: Clear. HEART: Had a regular rhythm. EXTREMITIES: He was stated to be moving all extremities fairly well, although preferentially moves the right arm and right leg and there was some question of weakness in the left side. NEUROLOGIC: He initially was alert and oriented x3. Speech was normal. He had good mood and affect, but later after being present in our hospital for several hours, he became agitated and required sedation and then transferred to the ICU. To get the MRI scan, he had to be sedated heavily and remains on effects of sedation when I examined him today with Dr. Segundo and Dr. Burris. On my examination, he was lethargic, was moving the right arm and right leg, did not move the left leg very much at all and the left arm movements were pretty sparse, but he did retain capacity to have some power as he can push my arm away. I did not see any head or eye deviation to the right. I could not test for visual threats as he was still partially sedated and his eyes were held tightly shut. Pupils appear to be equal, round and reactive to light. He did not have any clear cut extensor plantar response on the left and Silvia signs were not clearly present on the left. The rest of the examination was almost impossible and certainly sensory examination could not be performed with any detail. I went over the CTAs which showed no evidence for significant intracranial or extracranial disease, looking specifically in the posterior circulation and specifically the right posterior cerebral artery or tip of the basilar artery and find no significant abnormalities The MRI scan did show in my opinion clear cut evidence for a vascular event involving the posterior circulation and the distribution of perforating vessels originating from the posterior cerebral artery on the right and supplying the medial temporal lobe and the thalamus. There was nothing over the superficial temporal lobe hemispheres or deep white matter other than the medial temporal structures described above. No other areas of infarction were noted. An echo was said to show hypertensive heart, but no other potential source of emboli. At this point, I think this man has had a progressive cerebrovascular accident involving small perforating vessels radiating from the right posterior cerebral artery and has in addition to some mild hemisensory deficits and perhaps an element of neglect, an agitated delirium which can be seen in these vascular events. I went over several articles that were present on the internet describing this syndrome with both Dr. Burris and Dr. Segundo and went over the imaging studies and while encephalitis is theoretically in the differential diagnosis here, I really would not do a spinal tap in this man. There is a significant degree of vasogenic edema in the medial temporal lobe, lumbar puncture is unlikely to shows anything other than perhaps a slight elevated protein due to the stroke and has a risk of producing I think a medial temporal lobe herniation. Unfortunately, management of the behavior issues here are going to require sedation. Dr. Burris already has this man on phenobarbital. We will check an EEG, but I do not think this is a postictal state and Neurology is going to follow him alongbut offer no anticonvulsants We may need Psychiatry to get involved if the agitated state does not clear within the next few days as hopefully it will as the vasogenic edema begins to resolve. In terms of anticoagulation, I would go with aspirin and Plavix as I think this is an intracranial event and this would be the treatment of choice. We certainly have no evidence for a source of emboli. The history suggests that this was a slowly evolving process over hours, which to me speaks of an intracranial small vessel stenosis and management of this is going to rise with antiplatelet agents and nothing else at this time. MARILYN
[2018-12-23] MEDS: ASPIRIN 325 MG ECTAB PO SCH (15:02)
--- NOTE | 2018-12-23 17:12 | Critical Care Consultation ---
Date of Consultation December 22, 2018 This note for the consultation done on December 22, 2018. Assessment & Plan (1) DVT prophylaxis: Impression: 1. Altered mental status, likely related to delirium, introduction to benzodiazepine could cause recurrence of delirium in a patient who had history of alcoholism up until recently. 2. Hypertension secondary to catecholamine surge. 3. Left-sided weakness, concerns for CVA. CAT scan of the head did not show abnormality. Plan: 1. I will start the patient on phenobarbital for to control his delirium. 2. Neurology report was noted. 3. Continue thiamine and folic acid. 4. We will further evaluate the incident with MRI in the morning. 5. Even if the patient has a CVA, the patient was deemed too late for TPA administration. 6. Oxygen. 7. DVT and GI prophylaxis. 8. Discussed with the staff and with family at the bedside. Discussed with Dr. Segundo. Thank you, critical care time spent with the patient was 45 minutes. History of Present Illness Reason for Consultation: Altered mental status. Requesting Physician: Dr. Segundo. Attending Physician: Mei Segundo MD History of Present Illness Dear Dr. Segundo: Thank you very kind referral of Mr. Carr to critical care service. This is 68 -year-old gentleman who has not been followed with primary care physician, has not been taking any medications, started to have numbness in his left upper and left lower extremities, the incident occurred 12 hours prior to his presentation , the patient was walking at the [facility] when started feeling abnormal sensation in his right upper extremity called his and return back home woke up at 2:00 after he was unable to move his left side. In the morning when he woke up he felt more weakness and that his left lower and upper extremities and decided to come into the hospital at 9 AM. Stroke alert code was called and the patient deemed not a candidate for TPA. The patient over the hospital course to start becoming more agitated requiring 3 doses of Ativan at 2 mg each. The patient become more agitated to the point that was difficult to controlled on the floor. Apparently the patient has history of alcohol drinking and quit in October 2 months ago. When the patient arrived to the ICU, he was agitated and in soft wrist restraints, could not give me any answers but he was just delirious and confused , he could not complete a sentence. Head CT was done earlier which did not show any intra-cranial catastrophe, neck CT showed with CTA stenosis of 50% of the right carotid. The patient was started on phenobarbital for potential DT, responded to the dose very well. The patient was evaluated by Dr. Daily from [place], and through the telemetry medicine deemed not a candidate for TPA. Patient presented more than 12 hours after the first incident of symptoms. The patient does not have past medical history as he has not been followed by a physician. He is ex-smoker, history of drinking up until October, lives with his significant other, family history is not contributing to his current illness. Allergies Allergy/AdvReac Type Severity Reaction Status Date / Time No Known Allergies Allergy Unverified 12/22/18 09:57 Home Medications Home Medications Medication Instructions Recorded Confirmed Type No Known Home Medications 12/22/18 12/22/18 History Patient History Medical History No known health problems Surgical History H/O arthroscopic knee surgery History of excision of pilonidal cyst History of vasectomy History of tonsillectomy and adenoidectomy Family History Father , 82 T2DM (type 2 diabetes mellitus) CAD (coronary artery disease) Multiple complications of type 2 diabetes mellitus Mother T2DM (type 2 diabetes mellitus) Other Family history of diabetes mellitus Social History marital status: Single Current Living Situation: Significant Other Current Living Situation Comment: Lives with girlfriend Other Information That Helps Us Care for You: No Feels Safe at Home: Yes Safety Concerns: Feels Safe At This Time Smoking Status: Current some day smoker Tobacco Type: smokeless tobacco Cigarettes per Day: Quit smoking 10 + years ago; chews 1 can q3days Second Hand Exposure: No Tobacco Cessation Education Requested by Patient: No Hx Alcohol Use: Yes Alcohol Intake Frequency: holidays/special occasions only Hx Substance Use: No Beliefs That Will Affect Care: None Communication Ability: Unable Review of Systems Review of system were difficult to obtain as the patient was confused and agitated. Physical Exam 2 Vital Signs (Past 24 Hours): Last Vital Signs Temp 37.0 C 12/23/18 00:03 Pulse 80 12/23/18 14:00 Resp 16 12/23/18 14:00 BP 147/85 H 12/23/18 12:01 Pulse Ox 96 12/23/18 12:01 Physical Exam: Heart rate was 122, blood pressure is elevated, O2 saturation on room air at 91%. Diaphoretic and agitated. S1-S2 tachycardic, distant breath sounds bilaterally, abdomen is benign, no edema. Poor body hygiene. Results & Data Laboratory Results Lab results were noted for slightly elevated white count, chemistry has been acceptable. Slight elevation in bilirubin. CPK was elevated also at 3200. UA was slightly positive. Diagnostic Findings Head CT was reviewed as well as neck reviewed by report. Chest x-ray was unremarkable.
--- NOTE | 2018-12-23 17:17 | Critical Care Progress Note ---
Date of Service December 23, 2018 Assessment & Plan (1) DVT prophylaxis: Impression: 1. Delirium secondary to temporal lobe CVA, history of DT with administration of benzodiazepine could be the cause. 2. Hypertension, better. 3. History of alcohol use. Plan: 1. Continue phenobarbital 130 mg IV every 4 hours, change it to 65 milligrams IV every 4 hours in 24 hours, decrease it by half every day until reaching the dose of 4 mg twice daily then stop it. 2. Neurology consult by Dr. Robles appreciated, discussed in details with him, findings are representing CVA of the right occipital, temporal and thalamic region. 3. Continue thiamine and folic acid. 4. Start the patient on daily aspirin. 5. Swallow evaluation and physical and occupational therapy consult. 6. Oxygen as needed. 7. DVT and GI prophylaxis. 8. Discussed with Dr. Segundo, patient will be transferred to regular floor, with follow-up post CVA care. 9. Discussed with [facility] neurology as well. Agreed with above plan. 10. Patient presentation was too late for administration of TPA for CVA. 11. Discussed with the staff on rounds and details. Thank you, critical care time spent with the patient was 45 minutes. Subjective The patient is more calm today however he open his eyes but does not follow questions appropriately. Review of systems not obtainable from him. Physical Exam 2 Vital Signs (Past 24 Hours): Last Vital Signs Temp 37.0 C 12/23/18 00:03 Pulse 80 12/23/18 14:00 Resp 16 12/23/18 14:00 BP 147/85 H 12/23/18 12:01 Pulse Ox 96 12/23/18 12:01 Physical Exam: Although the patient moving 4 extremities, noted to have weakness in the left upper and lower extremity. No facial droop. Pupils are equally reactive. Agitated at times when the phenobarbital dose is wearing off. Vital signs are stable, S1-S2 regular rate and rhythm, lungs are clear, abdomen is benign, no edema in the periphery, poor skin and body hygiene. Results & Data Laboratory Results Labs were reviewed which show slight elevation in white count, elevated CPK. The rest of his labs were acceptable. Diagnostic Findings MRI of the brain was done which showed acute CVA affecting the right temporal, occipital and thalamic region. Minimal edema in the periphery. Less likely to represent encephalitis.
--- NOTE | 2018-12-23 17:56 | Hospitalist Progress Note ---
Date of Service December 23, 2018 Assessment & Plan (1) Acute CVA (cerebrovascular accident): Presented with left-sided weakness confusion Arrived to the ER was more than 12 hours after the symptoms Beyond the scope of TPA Was evaluated by [facility] in the ER After arrival to floor, patient developed acute delirium, agitation Required soft restraints Transfer to ICU -MRI w/o contrast shows posterior occipital artery stroke involving medial temporal lobe, right posterior lobe, right hilum - Acute/subacute CVA, leading to severe behavioral disturbance/delirium Appreciate input from neurology Patient will be continued with aspirin -can be given per rectal, if patient is too agitated to have p.o. intake Will be started on Plavix mental status improved Patient will need post stroke/CVA medication management with aspirin Plavix and statin Overall prognosis remains very poor: Left sided paralysis, possible visual cut, behavioral/personality change Will need long-term rehab with slow improvement Patient's partner/girlfriend present at bedside updated (2) Elevated blood pressure reading: Blood pressure was elevated post stroke -normal physiologic response in setting of acute CVA -allow permissive HTN 24-48hr -Treatment unless >220/110, At present systolic blood pressure is 110 with diastolic of 18 Continue to monitor on telemetry Patient is not hypoxic, remains in room air vitals stable Transferred out of ICU to telemetry (3) Hyperglycemia: - -Novolog sliding scale per protocol (4) DVT prophylaxis: Moderate to high risk -Lovenox 40mg SQ daily Disposition: to be determined, we will need acute rehab due to current deficits CODE STATUS: Full code Subjective Patient remains lethargic, sedated Having episode of confusional state, with complete left hemineglect Left arm movement noted, No movement on left lower extremity Patient unable to follow commands MRI of brain shows Acute infarct in the right posterior cerebral artery territory involving the medial right temporal lobe limited portion of the right occipital lobe, and right thalamus Appreciate input from farm appraiser, neurology Continue to keep patient n.p.o.: Severe agitation delirium not safe to assess swallowing or dysphagia screening Severe behavioral disturbance post acute stroke of posterior circulation Continue IV phenobarbital scheduled, plan to transition to oral when patient able to take p.o. intake Overall prognosis remains very poor Patient's girlfriend present at bedside updated Physical Exam 2 Vital Signs (Past 24 Hours): Last Vital Signs Temp 37.0 C 12/23/18 00:03 Pulse 80 12/23/18 14:00 Resp 16 12/23/18 14:00 BP 147/85 H 12/23/18 12:01 Pulse Ox 96 12/23/18 12:01 Physical Exam: GENERAL: Episodes of agitation, combativeness Was lethargic/sedated during my time of interview (was given phenobarbital IV prior) Patient moves his right arm with slight touch Pulling at lines, nasal cannula HEENT: Unable to assess for poor cooperation Dry oral mucosa Lungs: Diminished, no audible wheeze or rales Cardiovascular: Regular Abdomen: Soft, , bowel sounds active, Neuro: Evidence of left hemineglect, dense left lower extremity paralysis, Acute delirium/confusion
[2018-12-23] MEDS: FOLIC ACID 1 MG in SYRINGE 9.8 ML IV SCH (19:34)
[2018-12-23] MEDS: THIAMINE HCL 200 MG in SODIUM CHLORIDE 0.9% 50 ML IV SCH (19:37)
[2018-12-24] MEDS: INSULIN ASPART 100 UNITS/ML 3 ML PEN SC SCH ×4 (01:00→18:02)
[2018-12-24] MEDS: SODIUM CHLORIDE 0.9% 1000ML 1,000 ML IV SCH ×2 (04:09→13:29)
[2018-12-24] MEDS: ASPIRIN 325 MG ECTAB PO SCH (07:56)
[2018-12-24] MEDS: NICOTINE 21 MG/24 HR TDSY TD SCH (07:57)
[2018-12-24] MEDS: ENOXAPARIN INJ 40 MG/0.4 ML SYR SQ SCH (07:57)
[2018-12-24 07:59] LABS: Basophils # (auto) 0.02 K/uL (0-0.2); Basophils % (auto) 0.3 %; Eosinophils # (auto) 0.19 K/uL (0-0.5); Eosinophils % (auto) 2.7 %; Hematocrit (blood only) 41.7 % (42-52); Hemoglobin 14.1 g/dL (14.0-18.0); Immature Granulocytes # (auto) 0.01 K/uL (0.00-0.02); Immature Granulocytes % (auto) 0.1 %; Lymphocytes # (auto) 1.13 K/uL (1.2-3.4); Lymphocytes % (auto) 16.1 %; Mean Corpuscular Hgb Conc 33.8 g/dL (32-36); Mean Corpuscular Volume 82.9 fL (80-100); Monocytes # (auto) 0.45 K/uL (0.11-0.59); Monocytes % (auto) 6.4 %; Neutrophils # (auto) 5.21 K/uL (1.4-6.5); Neutrophils % (auto) 74.4 %; Platelet Count 164 K/uL (130-400); RDW Coefficient of Variation 13.1 % (11.5-14.5); RDW Standard Deviation 39.3 fL (36.4-46.3); Red Blood Count 5.03 M/uL (4.7-6.1); White Blood Count 7.01 K/uL (4.8-10.8)
[2018-12-24 08:35] LABS: BUN Creatinine Ratio 16.8 (10-20); Calcium 8.1 mg/dl (8.5-10.1); Creatinine Clr Calc Pharmacy 100.4 ml/min; Est GFR (African American) 104.2; Est GFR (Non-African American) 89.9; Potassium 3.3 mmol/L (3.5-5.1)
--- NOTE | 2018-12-24 14:05 | Neurology Progress Note ---
Date of Service December 24, 2018 Assessment & Plan (1) Acute CVA (cerebrovascular accident): 1. MRI brain - Acute infarct in the right posterior cerebral artery territory involving the medial right temporal lobe, limited portion of the right occipital lobe, and right thalamus. This infarct is at least 6-12 hours old. No hemorrhage. 2. CTA head and neck- no significant stenosis 3. TTE- EF 65-70 % no ASD 4. Plavix 75 mg and aspirin 81 mg X 30 days then aspirin 81 mg for a lifetime 5. optimize DM, HTN, HLD LDL <70 6. PT/OT speech for discharge recommendations 7. outpatient ZIO or cardio net 8. needs follow up with PCP and neurology Yuliana Bishop PAC 4-6 weeks, neurology after discharge from rehab Supervising Physician Co-Signing Physician Notes I have seen and discussed above patient with Dr Daniel Robles, neurology I have seen Mr. Hahn today in the company of his sister, discussed the case with Yuliana RUEDA and reviewed his laboratory studies and nursing notes. He currently is intermittently confused occasionally agitated but is much better than he was yesterday he has what appears to be a dense left hemiparesis despite the fact that his current infarction does not involve the motor strip per se some of this is due to his strong element of neglect and anosagnosia which would be a typical finding in the setting of an infarction in the right posterior circulation involving the medial temporal lobe, portions of the occipital lobe and the right thalamus. In addition to the hemiparasis and hemisensory neglect he also has what appears to be a relatively dense field cut to confrontation but cooperation with examination was limited and the accuracy of this statement needs to be questioned. His phenobarbital is being tapered he is on aspirin and Plavix his blood pressure is being monitored and observed and at this point all neurology is going to recommend is that he be assessed for rehabilitation and physical therapy, occupational therapy and speech therapy will continue to follow him on a daily basis. Any agitation that reemerges may need to be treated with neuroleptics at this point I would discourage the use of phenobarbital as it might proved to be excessively sedating and produce paradoxical agitation. Nothing about his presentation suggests delirium tremens or seizures and the role of phenobarbital in the current setting is therefore marginal at best Daniel Abdul is a 68 year old male with no known medical problems/ He was seen in the ED secondary to L arm/leg weakness x 6 hours. Around 7:30-8pm when patient was going to [facility] and noticed numbness/tingling to L arm that persisted overnight. He sleeps on couch and when woke up rolled off the couch and was unable to get up due to profound weakness of L arm/leg. He also had incontinence of urine at the time. Currently his sister is at bedside. He states he is tired of people bothering him he wants to sleep. denies CP, SOB, abdominal pain, headache, vision changes , swallowing issue Physical Exam 2 Vital Signs (Past 24 Hours): Last Vital Signs Temp 37.0 C 12/24/18 06:40 Pulse 66 12/24/18 06:40 Resp 17 12/24/18 06:40 BP 146/76 H 12/24/18 06:40 Pulse Ox 93 12/24/18 06:40 Gen: alert to voice command lungs course breath sounds CV RRR right UE 5/5 hand selling manager biceps triceps, left UE raise arm slightly, dysmetric right LE hip flex plantar flex ext 5/5, left lifts against gravity but not resistance neuro: thinks its 1951, [facility], lives in [place] ( actually lives in [place]) knows sisters name Results & Data Laboratory Results Abnormal lab results 12/23/18 12/23/18 12/24/18 Range/Units 18:05 20:41 00:56 Hct (42-52) % Lymph # (Auto) (1.2-3.4) K/uL Potassium (3.5-5.1) mmol/L Glucose (70-99) mg/dl POC Glucose 113 H 110 H 104 H (70-99) Calcium (8.5-10.1) mg/dl Total Creatine Kinase (39-308) U/L 12/24/18 12/24/18 12/24/18 Range/Units 06:09 07:38 07:38 Hct 41.7 L (42-52) % Lymph # (Auto) 1.13 L (1.2-3.4) K/uL Potassium 3.3 L (3.5-5.1) mmol/L Glucose 105 H (70-99) mg/dl POC Glucose 100 H (70-99) Calcium 8.1 L (8.5-10.1) mg/dl Total Creatine Kinase 2741 H (39-308) U/L Diagnostic Findings no new imagine
--- NOTE | 2018-12-24 18:01 | Hospitalist Progress Note ---
Date of Service December 24, 2018 Assessment & Plan (1) Acute CVA (cerebrovascular accident): Presented with left-sided weakness confusion Arrived to the ER was more than 12 hours after the symptoms Beyond the scope of TPA Was evaluated by [facility] in the ER After arrival to floor, patient developed acute delirium, agitation Required soft restraints treated with Phenobarbital was Transferred to ICU -MRI w/o contrast shows acute infarct in the posterior occipital artery territory involving medial temporal lobe, right posterior lobe, right thalamus . Acute/subacute CVA, leading to severe behavioral disturbance/delirium Appreciate input from neurology Patient will be dual antiplatelet Aspirin and Plavix for 30 days then aspirin 81 mg indefinitely Statin will be started once CPK level normalizes wean off Phenobarbital -more alert and co operative , PT/OT /speech eval requested appreciate input pt will need Acute rehab Case management consulted for discharge planning (2) Hypertensive urgency: Blood pressure was elevated post stroke -normal physiologic response in setting of acute CVA -permissve Hypertension was allowed for 24-48 hrs post stroke BP improved Continue to monitor on telemetry Present on Admission?: Yes (3) Elevated CPK: presented with Rhabdomyolysis CPK > 2000 due to fall and prolong immobilization -was found on floor in AM -renal function remains normal CPK level improved with IVF cont to monitor hold statin till CPK level normalized (4) Acute delirium: due to acute CVA /metabolic encephalopahty --cerebral ischemia involving temporal lobe/thalamas developed acute agitation /combativeness on floor requiring restrain IV phenorbarbital Urine tx screen negative /ETOH - no evidence of infection mental status gradually improved more awake and alert , co -operative plan to wean off Phenobarbital (5) Hyperglycemia: HbA1c > 7 DM type 2 ( new Dx -pt has not seen any physician for years ) - -Novolog sliding scale per protocol on discharge will be started on oral hypoglycemic -Metformin appreciate input from Pharmacy and para educator (6) DVT prophylaxis: Moderate to high risk -Lovenox 40mg SQ daily Disposition: will need Acute rehab pt's sister updated at bedside CODE STATUS: Full code Subjective more alert today , speech fluent wants to be left alone says he can not rest as people are constantly coming in his room sister present at bedside Physical Exam 2 Vital Signs (Past 24 Hours): Last Vital Signs Temp 36.9 C 12/24/18 15:34 Pulse 80 12/24/18 15:34 Resp 16 12/24/18 15:34 BP 146/76 H 12/24/18 06:40 Pulse Ox 97 12/24/18 15:34 Physical Exam: GENERAL: opens eyes to voice , answering questions , falls back to sleep quickly ( possible due to phenobarital ) HEENT: Sclera nonicteric, Normal oral mucosa, neck: No JVD, no thyromegaly, trachea midline Lungs: Clear to auscultate, no wheeze or rales Cardiovascular: Regular S1 and S2, no murmur or gallop, no JVD, no lower extremity edema Abdomen: Soft, nontender, bowel sounds active, Neuro: dense left sided hemineglect , able to recognize people standing on right ,able to move left arm /leg approx 30 degree, supports left arm with right
[2018-12-24] MEDS: THIAMINE HCL 200 MG in SODIUM CHLORIDE 0.9% 50 ML IV SCH (19:53)
[2018-12-24] MEDS: FOLIC ACID 1 MG in SYRINGE 9.8 ML IV SCH (19:54)
[2018-12-24] MEDS ORDERED: HydrALAZINE HCL 20 MG/ML VIAL IV PRN (23:28)
[2018-12-25] MEDS: SODIUM CHLORIDE 0.9% 1000ML 1,000 ML IV SCH (00:16)
[2018-12-25] MEDS: INSULIN ASPART 100 UNITS/ML 3 ML PEN SC SCH ×5 (00:21→21:01)
[2018-12-25 07:47] LABS: BUN Creatinine Ratio 12.9 (10-20); Calcium 8.8 mg/dl (8.5-10.1); Creatinine Clr Calc Pharmacy 106.4 ml/min; Est GFR (African American) 106.8; Est GFR (Non-African American) 92.1; Potassium 3.5 mmol/L (3.5-5.1)
[2018-12-25] MEDS: NICOTINE 21 MG/24 HR TDSY TD SCH (10:37)
[2018-12-25] MEDS: ASPIRIN 81 MG ECTAB PO SCH (10:41)
[2018-12-25] MEDS: CLOPIDOGREL BISULFATE 75 MG TAB PO SCH (10:41)
[2018-12-25] MEDS: ENOXAPARIN INJ 40 MG/0.4 ML SYR SQ SCH (10:41)
--- NOTE | 2018-12-25 14:05 | Neurology Progress Note ---
Date of Service December 25, 2018 Assessment & Plan (1) Acute CVA (cerebrovascular accident): 1. MRI brain - Acute infarct in the right posterior cerebral artery territory involving the medial right temporal lobe, limited portion of the right occipital lobe, and right thalamus. This infarct is at least 6-12 hours old. No hemorrhage. 2. CTA head and neck- no significant stenosis 3. TTE- EF 65-70 % no ASD 4. Plavix 75 mg and aspirin 81 mg X 30 days then aspirin 81 mg for a lifetime 5. optimize DM, HTN, HLD LDL <70 6. PT/OT speech for discharge recommendations 7. outpatient ZIO or cardio net 8. CPK elevated but trending down 9. serequel for behavior issues, would wean off phenobarb. needs follow up with PCP and neurology Yuliana Bishop PAC 4-6 weeks, neurology after discharge from rehab Supervising Physician Co-Signing Physician Notes I have seen and discussed above patient with Dr Daniel Robles, neurology I see Mr. Carr today, discussed his case with Dr. Gonzalez and with Yuliana Bishop PA-C and with his current nurse. He has had some periods of extreme agitation and aggressiveness alternating with moments where he is more docile and cooperative currently when I examined him he is in the latter state, watching television, enjoying the [employer] show but still unaware of the deficits involving his left arm and leg and with a dense left field cut. Plans are to taper the phenobarbital slowly and to add some low-dose Seroquel in hopes that the latter will produce a more constant control of his episodic psychotic behavior which may persist intermittently for some time after this right posterior circulation cerebrovascular accident. This behavior will proved to be unfortunately a rate limiting step in his acceptance into a rehabilitation facility which he sorely needs. Hopefully with medications and tincture of time this issue will resolve We will continue to see him on a daily basis. Daniel Abdul is a 68 year old male with no known medical problems/ He was seen in the ED secondary to L arm/leg weakness x 6 hours. Around 7:30-8[email or web address] and noticed numbness/tingling to L arm that persisted overnight. He sleeps on couch and when woke up rolled off the couch and was unable to get up due to profound weakness of L arm/leg. He also had incontinence of urine at the time. He states he is tired but he would like to get OOB. He thinks he is at home. denies CP, SOB, abdominal pain, headache, vision changes, swallowing issue Physical Exam 2 Vital Signs (Past 24 Hours): Last Vital Signs Temp 36.8 C 12/25/18 11:14 Pulse 65 12/25/18 11:14 Resp 14 12/25/18 11:14 BP 171/93 H 12/25/18 11:14 Pulse Ox 97 12/25/18 11:14 Gen: alert to self but not place or time lungs CTA CV RRR left UE unable to squeeze with hand unable to lift against gravity. left LE lifts against gravity but no resistance right UE 5/5 biceps triceps hand corner block cutter, hip flex 5/5 sensation intact with light touch Results & Data Laboratory Results Abnormal lab results 12/24/18 12/25/18 12/25/18 Range/Units 21:18 00:05 07:04 Sodium 135 L (136-145) mmol/L Glucose 115 H (70-99) mg/dl POC Glucose 106 H 110 H (70-99) Total Creatine Kinase 1849 H (39-308) U/L Diagnostic Findings no new imaging
[2018-12-25] MEDS: QUETIAPINE FUMARATE 25 MG TABLET PO SCH (15:40)
--- NOTE | 2018-12-25 18:41 | Hospitalist Progress Note ---
Date of Service December 25, 2018 Assessment & Plan (1) Acute CVA (cerebrovascular accident): Presented with left-sided weakness confusion Arrived to the ER was more than 12 hours after the symptoms Beyond the scope of TPA Was evaluated by [facility] neurology in the ER After arrival to floor, patient developed acute delirium, agitation Required soft restraints treated with Phenobarbital was Transferred to ICU -MRI w/o contrast shows acute infarct in the posterior occipital artery territory involving medial temporal lobe, right posterior lobe, right thalamus . Acute/subacute CVA, leading to severe behavioral disturbance/delirium Appreciate input from neurology Patient will be dual antiplatelet Aspirin and Plavix for 30 days then aspirin 81 mg indefinitely Statin will be started once CPK level normalizes pt developing severe behavioral disturbance , inappropriate to female staff trying to hit nursing with IV pole requiring restrain D/w with Neurology post CVA psychosis ; can improve in weeks vs remains chronically -due to location of CVA ( non dominent hemisphere involving temporal lobe and thalamas ) associated vision fileld cut on left and possible rt unable to follow instructions for visual field test started on Seroquel 12.5 mg in AM And noon 25 mg HS wean off IV phenobarbital pharmacy updated regarding taper reduce dose of IV phenobarital 65 mg IV q12 H tomorrow ( 12/26/18 ) reduce to 1/2 dose 32.5 mg IV q12 H ( 12/27/18 ) 32.5 mg IV daily ( 12/28/18 ) then stop pt will need to be in Telemetry while on IV phenobarbital for risk Bradycardia pt will need Acute rehab Case management consulted for discharge planning (2) Hypertensive urgency: Blood pressure was elevated post stroke -normal physiologic response in setting of acute CVA -permissive Hypertension was allowed for 24-48 hrs post stroke BP improved Continue to monitor on telemetry (3) Elevated CPK: presented with Rhabdomyolysis CPK > 2000 due to fall and prolong immobilization -was found on floor in AM -renal function remains normal CPK level improved with IVF cont to monitor hold statin till CPK level normalized (4) Acute delirium: due to acute CVA /metabolic encephalopahty --cerebral ischemia involving temporal lobe/thalamas developed acute agitation /combativeness on floor requiring restrain IV phenorbarbital Urine tx screen negative /ETOH - no evidence of infection post CVA psychosis management as outlined above (5) Hyperglycemia: HbA1c > 7 DM type 2 ( new Dx -pt has not seen any physician for years ) - -Novolog sliding scale per protocol on discharge will be started on oral hypoglycemic -Metformin appreciate input from Pharmacy and certified lactation educator (6) DVT prophylaxis: Moderate to high risk -Lovenox 40mg SQ daily Disposition: will need Acute rehab pt's sister /daughter updated at bedside CODE STATUS: Full code Subjective was agitated , combative , last night required restrain continued with IV phenobartibal off restrain wants to sleep as he feels tired left hemineglect noted Physical Exam 2 Vital Signs (Past 24 Hours): Last Vital Signs Temp 36.5 C 12/25/18 15:29 Pulse 72 12/25/18 15:29 Resp 16 12/25/18 15:29 BP 187/104 H 12/25/18 15:29 Pulse Ox 94 12/25/18 15:29 Physical Exam: GENERAL: chronically ill appearing appears to be asleep when I came wakes up with voice , keeps eyes closed , wants to be left alone HEENT: Sclera nonicteric, Normal oral mucosa, neck: No JVD, no thyromegaly, trachea midline Lungs: Clear to auscultate, no wheeze or rales Cardiovascular: Regular S1 and S2, no murmur or gallop, no JVD, no lower extremity edema Abdomen: Soft, nontender, bowel sounds active, Neuro: left sided hemiparesis with left hemineglect Skin: No rash LYMPH NODES: No cervical lymphadenopathy
[2018-12-26 07:36] LABS: Albumin Level 3.3 gm/dl (3.4-5.0); BUN Creatinine Ratio 14.1 (10-20); Bilirubin Direct 0.2 mg/dl (0-0.2); Calcium 8.1 mg/dl (8.5-10.1); Creatinine Clr Calc Pharmacy 100.5 ml/min; Est GFR (African American) 104.2; Est GFR (Non-African American) 89.9; Potassium 3.3 mmol/L (3.5-5.1)
[2018-12-26 07:39] LABS: Albumin Globulin Ratio 0.8 (0.9-2); Bilirubin,Total 0.7 mg/dl (0.2-1); Globulin 3.9 gm/dl (2.5-4.0); Total Protein 7.2 gm/dl (6.4-8.2)
[2018-12-26] MEDS: INSULIN ASPART 100 UNITS/ML 3 ML PEN SC SCH ×4 (08:20→21:18)
[2018-12-26] MEDS: SODIUM CHLORIDE 0.9% 1000ML 1,000 ML IV SCH ×2 (08:21→17:03)
[2018-12-26] MEDS: ASPIRIN 81 MG ECTAB PO SCH (08:43)
[2018-12-26] MEDS: ENOXAPARIN INJ 40 MG/0.4 ML SYR SQ SCH (08:43)
[2018-12-26] MEDS: NICOTINE 21 MG/24 HR TDSY TD SCH (08:45)
[2018-12-26] MEDS: CLOPIDOGREL BISULFATE 75 MG TAB PO SCH (08:48)
[2018-12-26] MEDS: QUETIAPINE FUMARATE 25 MG TABLET PO SCH ×2 (08:49→13:45)
[2018-12-26] MEDS ORDERED: POTASSIUM CHLORIDE 10 MEQ TABCR PO STA (09:02)
--- NOTE | 2018-12-26 10:17 | Hospitalist Progress Note ---
Date of Service December 26, 2018 Assessment & Plan (1) Acute CVA (cerebrovascular accident): Right Posterior cerebral artery infarct Presented on admission with left sided weakness and confusion No TPA was given since her symptoms was more than 12hrs when arrival to the ER, out of the window CTA head/neck showed dissection, high-grade stenosis or proximal branch occlusion. MRI head showed acute infarct in the right posterior cerebral artery territory involving the medial right temporal lobe, limited portion of the right occipital lobe, and right thalamus. Neurology on board recommended dual antiplatelet Aspirin and Plavix for 30 days , then aspirin 81 mg indefinitely Statin will be started once CPK level normalizes Continue monitor in tele Will need placement to rehab Continue PT/OT eval (2) Hypertensive urgency: Blood pressure was elevated post stroke BP 160/86 today normal physiologic response in setting of acute CVA Will start on lisinopril 5mg today Continue monitor BP (3) Elevated CPK: Presented with Rhabdomyolysis CPK > 2000 due to fall and prolong immobilization Received IVF CPK level trending down hold statin till CPK level normalized (4) Acute delirium: Due to acute CVA /metabolic encephalopahty --cerebral ischemia involving temporal lobe/thalamas Developed acute agitation /combativeness on floor Urine tx screen negative /ETOH Post CVA psychosis can improve in weeks vs remains chronically -due to location of CVA ( non dominant hemisphere involving temporal lobe and thalamas ) on Seroquel 12.5 mg in AM And noon and 25 mg HS wean off IV phenobarbital On phenobarital 65 mg IV q12 H today ( 12/26/18 ) then reduce to 1/2 dose 32.5 mg IV q12 H ( 12/27/18 ) 32.5 mg IV daily ( 12/28/18 ), then stop (5) Diabetes: Newly diagnosed Recent Hba1c 7.8 On Novolog sliding scale per protocol Will discharge Metformin Pharmacy and personal development educator on board (6) DVT prophylaxis: Moderate to high risk Lovenox 40mg SQ daily Disposition: will need Acute rehab CODE STATUS: Full code Subjective Pt was seen and examined Lying in bed with no distress Pt said that that his left side feels weak Denies any chest pain, palpitation, dizziness and SOB Physical Exam 2 Vital Signs (Past 24 Hours): Last Vital Signs Temp 36.8 C 12/26/18 08:10 Pulse 77 12/26/18 08:39 Resp 15 12/26/18 08:10 BP 160/86 H 12/26/18 08:10 Pulse Ox 96 12/26/18 08:39 Physical Exam: General- No acute distress Head- atraumatic Eyes- PERRL, EOMI, ENT- oropharynx clear Neck- supple, no JVD Lungs- clear to auscultation Heart- regular rhythm; no murmur Abdomen- normal bowel sounds, soft, nontender Extremities- no calf tenderness Neuro- alert, oriented (not to time and current event) PERRL, EOMI; LUE weakness (unable to lift LUE up against gravity) decrease strength with squeezing in LUE. LLE weakness Skin- warm & dry
[2018-12-26] MEDS: LISINOPRIL 5 MG TAB PO SCH (13:45)
--- NOTE | 2018-12-26 13:51 | Neurology Progress Note ---
Date of Service December 26, 2018 Assessment & Plan (1) Acute CVA (cerebrovascular accident): 1. MRI brain - Acute infarct in the right posterior cerebral artery territory involving the medial right temporal lobe, limited portion of the right occipital lobe, and right thalamus. This infarct is at least 6-12 hours old. No hemorrhage. 2. CTA head and neck- no significant stenosis 3. TTE- EF 65-70 % no ASD 4. Plavix 75 mg and aspirin 81 mg X 30 days then aspirin 81 mg for a lifetime 5. optimize DM, HTN, HLD LDL <70 6. PT/OT speech for discharge recommendations 7. outpatient ZIO or cardio net 8. CPK elevated but trending down 9. serequel for behavior issues started no overnight issues, would wean off phenobarb. needs follow up with PCP and neurology Yuliana Bishop PAC 4-6 weeks, neurology after discharge from rehab Supervising Physician Co-Signing Physician Notes I have seen and discussed above patient with Dr Daniel Robles, neurology I have seen Mr. Hahn today, reviewed his chart, discussed his case with Yuliana Bishop PA-C and with Dr. Stanton Sotomayor who has now assumed his case on the hospitalist service. He has had almost no episodes of agitation since Seroquel was started. The dose remains low. He is not that sedated. Phenobarbital being tapered soon will be out of his system. Today he is quite pleasant he is cooperating with his nurse is trying to move the left arm but has no capacity to bear weight on the left leg. He still has significant neglect of left-sided stimuli in a lot of denial of his deficits coupled with a left field cut and neglect all consistent with the right posterior cerebral infarction involving the medial temporal lobe the right thalamus and subcortical connections of the occipital cortex If behavior remains controlled on the current regimen he would be an excellent candidate for a rehabilitation facility and we are recommending that consultations be placed at this point. He should be continued on dual antiplatelet anticoagulation for about 30 days and then switch to single antiplatelet therapy probably with aspirin as he was taking nothing prior to admission. Neurology is going to continue to follow-up for the next several days but if he remains stable, off of phenobarbital and behavior is well controlled on low- dose Seroquel will sign off and see him in our clinic within 4-6 weeks after discharge Daniel Hernandezald is a 68 year old male with no known medical problems/ He was seen in the ED secondary to L arm/leg weakness x 6 hours. Around 7:30-8pm when patient was going to [facility] and noticed numbness/tingling to L arm that persisted overnight. He sleeps on couch and when woke up rolled off the couch and was unable to get up due to profound weakness of L arm/leg. He also had incontinence of urine at the time. He states he is tired but he would like to get OOB. He wants a nurse to help him to the bathroom. denies CP, SOB, abdominal pain, headache, vision changes, swallowing issue Physical Exam 2 Vital Signs (Past 24 Hours): Last Vital Signs Temp 37.1 C 12/26/18 11:32 Pulse 70 12/26/18 11:32 Resp 16 12/26/18 11:32 BP 183/103 H 12/26/18 11:32 Pulse Ox 96 12/26/18 11:32 Gen: alert NAD lungs course breath sounds CV RRR oriented to self strength: left UE tricep 3/5, hand raftsman biceps 0/5 left hip flex 4/5 right hand raftsman biceps triceps 5/5 right hip flex plantar flex ext 5/5 Results & Data Laboratory Results Abnormal lab results 12/26/18 Range/Units 06:50 Potassium 3.3 L (3.5-5.1) mmol/L Glucose 103 H (70-99) mg/dl Calcium 8.1 L (8.5-10.1) mg/dl AST 69 H (15-37) U/L Total Creatine Kinase 892 H (39-308) U/L Albumin 3.3 L (3.4-5.0) gm/dl Albumin/Globulin Ratio 0.8 L (0.9-2) Diagnostic Findings no new imaging
[2018-12-27] MEDS ORDERED: COUGH DROP (SUGAR FREE) LOZ 24 LOZ/1 BOX BUCCAL ONE (00:08)
[2018-12-27] MEDS: SODIUM CHLORIDE 0.9% 1000ML 1,000 ML IV SCH ×3 (03:03→21:39)
[2018-12-27 07:08] LABS: Albumin Level 3.3 gm/dl (3.4-5.0); Bilirubin Direct 0.2 mg/dl (0-0.2); Calcium 8.5 mg/dl (8.5-10.1); Creatinine Clr Calc Pharmacy 109.6 ml/min; Est GFR (African American) 107.9; Est GFR (Non-African American) 93.1; Potassium 3.4 mmol/L (3.5-5.1)
[2018-12-27 07:11] LABS: Albumin Globulin Ratio 0.9 (0.9-2); Bilirubin,Total 0.6 mg/dl (0.2-1); Globulin 3.8 gm/dl (2.5-4.0); Total Protein 7.1 gm/dl (6.4-8.2)
[2018-12-27 07:45] LABS: Amobarbital, Urine Conf NEGATIVE NG/ML (CUTOFF=100); Hydrocodone Urine NEGATIVE NG/ML (CUTOFF=50); Hydromor Urine NEGATIVE NG/ML (CUTOFF=50); Morphine Urine 3250 NG/ML (CUTOFF=50); Norhydrocodone Conf Ur NEGATIVE NG/ML (CUTOFF=50); Noroxycodone Urine NEGATIVE NG/ML (CUTOFF=50); Oxycodone Urine NEGATIVE NG/ML (CUTOFF=50); Phenobarbital, Urine 908 NG/ML (CUTOFF=100); Secobarbital, Urine Conf NEGATIVE NG/ML (CUTOFF=100)
[2018-12-27] MEDS: INSULIN ASPART 100 UNITS/ML 3 ML PEN SC SCH ×4 (07:53→21:39)
[2018-12-27] MEDS ORDERED: PHENOBARBITAL SODIUM IV SCH (09:00)
[2018-12-27] MEDS ORDERED: POTASSIUM CHLORIDE 10 MEQ TABCR PO STA (09:05)
[2018-12-27] MEDS: NICOTINE 21 MG/24 HR TDSY TD SCH (10:05)
[2018-12-27] MEDS: ASPIRIN 81 MG ECTAB PO SCH (10:08)
[2018-12-27] MEDS: CLOPIDOGREL BISULFATE 75 MG TAB PO SCH (10:08)
[2018-12-27] MEDS: LISINOPRIL 5 MG TAB PO SCH (10:10)
[2018-12-27] MEDS: QUETIAPINE FUMARATE 25 MG TABLET PO SCH ×2 (10:10→12:46)
[2018-12-27] MEDS: ENOXAPARIN INJ 40 MG/0.4 ML SYR SQ SCH (10:11)
--- NOTE | 2018-12-27 13:33 | Hospitalist Progress Note ---
Date of Service December 27, 2018 Assessment & Plan (1) Acute CVA (cerebrovascular accident): Right Posterior cerebral artery infarct Presented on admission with left sided weakness and confusion No TPA was given since her symptoms was more than 12hrs when arrival to the ER, out of the window CTA head/neck showed dissection, high-grade stenosis or proximal branch occlusion. MRI head showed acute infarct in the right posterior cerebral artery territory involving the medial right temporal lobe, limited portion of the right occipital lobe, and right thalamus. Neurology on board recommended dual antiplatelet Aspirin and Plavix for 30 days , then aspirin 81 mg indefinitely Statin will be started once CPK level normalizes No arrhythmia on tele monitor ECHO showed asymmetric LVH involving the base of septum, finding consistent with hypertrophic cardiomyopathy with EF 65-70% waiting for placement to rehab Continue PT/OT eval (2) Hypertrophic cardiomyopathy: ECHO finding consistent with hypertrophic cardiomyopathy Case discussed with Cardiology Dr. Luna who read the echo that recommneded to start on anticoagulant with coumadin due to risk of Afib and stroke in hypertrophy cardiomyopathy patient Will need outpatient ZIO or cardio net Will discuss with neuro for possible to d/c the plavix once INR therapeutic to lower the risk of bleeding Follow up with cardiology outpatinet (3) Hypertensive urgency: BP elevated Starting on Lisinopril yesterday Will increase lisinopril to 10mg normal physiologic response in setting of acute CVA Continue monitor BP (4) Elevated CPK: Presented with Rhabdomyolysis CPK > 2000 due to fall and prolong immobilization Received IVF CPK level trending down hold statin till CPK level normalized (5) Acute delirium: Due to acute CVA /metabolic encephalopahty --cerebral ischemia involving temporal lobe/thalamas Developed acute agitation /combativeness on floor Urine tx screen negative /ETOH Post CVA psychosis can improve in weeks vs remains chronically -due to location of CVA ( non dominant hemisphere involving temporal lobe and thalamas ) Will change seroquel to 25mg BID Will change phenobarbital IV to oral taper course of phenobarbital Would change to phenobarbital 16.2 BID tomorrow (half the 32.4 mg tablet), then use the solution for the 8.1 mg BID x 1 day (12/29/18) and 4 mg BID x 1 (12/30/18) and then stop. (6) Diabetes: Newly diagnosed Recent Hba1c 7.8 On Novolog sliding scale per protocol Will discharge on Metformin Pharmacy and staff development educator on board (7) DVT prophylaxis: Moderate to high risk Lovenox 40mg SQ daily Disposition: Waiting for placement to rehab CODE STATUS: Full code Subjective Pt was seen and examined Lying in bed with no distress Pt was confused last night But he was not aggressive toward staff This morning he follows command and very pleasant His left extremities strength slightly improve Denies any chest pain, palpitation and SOB Physical Exam 2 Vital Signs (Past 24 Hours): Last Vital Signs Temp 37.4 C 12/27/18 12:07 Pulse 76 12/27/18 12:07 Resp 18 12/27/18 12:07 BP 179/82 H 12/27/18 12:07 Pulse Ox 97 12/27/18 12:07 Physical Exam: General- No acute distress Head- atraumatic Eyes- PERRL, EOMI, ENT- oropharynx clear Neck- supple, no JVD Lungs- clear to auscultation Heart- regular rhythm; no murmur Abdomen- normal bowel sounds, soft, nontender Extremities- no calf tenderness Neuro- alert, oriented (not to time and current event) PERRL, EOMI; LUE weakness (slightly able to lift LUE up against gravity) decrease strength with squeezing in LUE. LLE weakness Skin- warm & dry
--- NOTE | 2018-12-27 15:45 | Neurology Progress Note ---
Date of Service December 27, 2018 Assessment & Plan (1) Acute CVA (cerebrovascular accident): 1. MRI brain - Acute infarct in the right posterior cerebral artery territory involving the medial right temporal lobe, limited portion of the right occipital lobe, and right thalamus. This infarct is at least 6-12 hours old. No hemorrhage. 2. CTA head and neck- no significant stenosis 3. TTE- EF 65-70 % no ASD 4. Plavix 75 mg and aspirin 81 mg X 30 days then aspirin 81 mg for a lifetime 5. optimize DM, HTN, HLD LDL <70 6. PT/OT speech for discharge recommendations 7. outpatient ZIO or cardio net 8. CPK elevated but trending down 9. serequel for behavior issues started no overnight issues, would wean off phenobarb. 10. cardiology consult for further input of plt therapy vs anit coagulation therapy needs follow up with PCP and neurology Yuliana Bishop PAC 4-6 weeks, neurology after discharge from rehab Supervising Physician Co-Signing Physician Notes I have seen and discussed above patient with Dr Daniel Robles, neurology I have seen Mr. Hahn today reviewed his progress, discussed his case with Dr. ronquillo, Yuliana Bishop PA-C and his current nursing providers. During the day his behavior has been quite controllable although he is disoriented still has some neglect of the left side and a significant motor and sensory deficits and visual field cut that clearly going to require some rehabilitation efforts. Unfortunately he has periodic agitation today about 530 requiring excessive sedation and some restraints until this clears up and is well controlled I do not think he is going to be a candidate to go to any rehabilitation facility. Furthermore apparently now there is some question is whether he has a hypertrophic cardiomyopathy and whether long-term Coumadin therapy might be indicated due to the inherent risk of atrial fibrillation and subsequent stroke with this particular entity. Current stroke I believe is due to localized intracranial small vessel disease involving the perforating vessels today from the right posterior cerebral artery including the cortical vessels supplying the medial temporal lobe the entire syndrome evolved over a period of hours rather than emerging acutely and this history strongly suggest localized disease rather than emboli. Furthermore he has been thus far in sinus rhythm so there is no compelling reason released from a neurologic point of view to start him on anticoagulation beyond aspirin and Plavix. Cardiology however has suggested the potential of Coumadin and we are going to consult them and ask whether they think this is treatment that could be delayed started immediately his current periodic agitation and impulsivity became a high fall risk in addition to his fairly prominent neurologic deficits to Coumadin in this setting is really going to be more risky. Daniel Hernandezald is a 68 year old male with no known medical problems/ He was seen in the ED secondary to L arm/leg weakness x 6 hours. Around 7:30-8pm when patient was going to [facility] and noticed numbness/tingling to L arm that persisted overnight. He sleeps on couch and when woke up rolled off the couch and was unable to get up due to profound weakness of L arm/leg. He also had incontinence of urine at the time. He states he is tired but he would like to get OOB also complaining of being thirsty. denies CP, SOB, abdominal pain, headache, vision changes, swallowing issue Physical Exam 2 Vital Signs (Past 24 Hours): Last Vital Signs Temp 36.7 C 12/27/18 15:40 Pulse 70 12/27/18 15:40 Resp 18 12/27/18 15:40 BP 198/112 H 12/27/18 15:40 Pulse Ox 94 12/27/18 15:40 Gen: alert NAD lungs course breath sounds CV RRR left arm lifts against gravity can not squeeze with hand lifts left leg against gravity right hand water conservation specialist biceps triceps 5/5, hip flex 5/5 Results & Data Laboratory Results Abnormal lab results 12/22/18 12/27/18 12/27/18 Range/Units 19:50 05:57 07:09 Potassium 3.4 L (3.5-5.1) mmol/L Glucose 101 H (70-99) mg/dl POC Glucose 108 H (70-99) AST 67 H (15-37) U/L Total Creatine Kinase 641 H (39-308) U/L Albumin 3.3 L (3.4-5.0) gm/dl Ur Morphine (GC/MS) 3250 A (CUTOFF=50) NG/ML Urine Phenobarbital 908 A (JOGVWC=208) NG/ML 12/27/18 Range/Units 11:07 Potassium (3.5-5.1) mmol/L Glucose (70-99) mg/dl POC Glucose 100 H (70-99) AST (15-37) U/L Total Creatine Kinase (39-308) U/L Albumin (3.4-5.0) gm/dl Ur Morphine (GC/MS) (CUTOFF=50) NG/ML Urine Phenobarbital (CHXOXO=918) NG/ML Diagnostic Findings no new images
[2018-12-27] MEDS ORDERED: HydrALAZINE HCL 20 MG/ML VIAL IV PRN (15:54)
--- NOTE | 2018-12-27 16:29 | Cardiology Consultation ---
Date of Consultation December 27, 2018 Assessment & Plan (1) Hypertrophic cardiomyopathy: Resting 2D transthoracic echocardiogram demonstrates asymmetric septal hypertrophy. Patients with a diagnosis of hypertrophic cardiomyopathy carry a significant stroke risk as well as risk of paroxysmal atrial fibrillation. Current expert opinion recommends low threshold for beginning anticoagulation in patients with hypertrophic cardiomyopathy, and cerebrovascular accident, particularly in patients who demonstrate evidence of atrial fibrillation. Currently there is no evidence of atrial fibrillation per telemetry or per history. Patient has been combative and agitated since admission and is considered a significant fall risk. Agree with continuing dual antiplatelet therapy with continued telemetry monitoring. If there is evidence of paroxysmal atrial fibrillation would then transition patient to warfarin. He will require a 14-30-day compliance monitor in the outpatient setting as well as outpatient cardiology follow-up. Currently his blood pressures are uncontrolled. Add beta-kyle therapy to low-dose BRIGIDA inhibitor. (2) Acute CVA (cerebrovascular accident): Appreciate neurology input. Add statin therapy. (3) Hypertensive urgency: Add low-dose beta-kyle and BRIGIDA inhibitor today. Continue to monitor. History of Present Illness Reason for Consultation: Hypertrophic cardiomyopathy Requesting Physician: Dr. Prieto Attending Physician: Stanton Prieto MD History of Present Illness 68-year-old male admitted with acute cerebrovascular accident. Treated with aspirin and clopidogrel per direction of neurology. A resting 2D transthoracic echocardiogram was performed 12/22/18. Echocardiographic findings suggest asymmetric septal hypertrophy with a maximal septal thickness of 1.7 cm. There is no evidence of LVOT obstruction, significant mitral regurgitation, or MARLY. Findings suggestive of hypertrophic cardiomyopathy. Patient denies any prior history of cardiac disease, coronary artery disease, congestive heart failure, dysrhythmia, or peripheral vascular disease. Telemetry demonstrates sinus rhythm with occasional PVCs. There is no evidence of atrial fibrillation. Per review of neurology notes. They feel his current CVA is consistent with small vessel occlusion, rather than cardioembolic phenomenon. He has had issues with agitation and combativeness on the floor. Blood pressure is uncontrolled. Family present at bedside. Planning transfer to rehab facility tomorrow if possible. Allergies Allergy/AdvReac Type Severity Reaction Status Date / Time No Known Allergies Allergy Unverified 12/22/18 09:57 Home Medications Home Medications Medication Instructions Recorded Confirmed Type No Known Home Medications 12/22/18 12/22/18 History Patient History Medical History No known health problems Surgical History H/O arthroscopic knee surgery History of excision of pilonidal cyst History of vasectomy History of tonsillectomy and adenoidectomy Family History Father , 82 T2DM (type 2 diabetes mellitus) CAD (coronary artery disease) Multiple complications of type 2 diabetes mellitus Mother T2DM (type 2 diabetes mellitus) Other Family history of diabetes mellitus Social History marital status: Single Current Living Situation: Significant Other Current Living Situation Comment: Lives with girlfriend Other Information That Helps Us Care for You: No Feels Safe at Home: Yes Safety Concerns: Feels Safe At This Time Smoking Status: Current some day smoker Tobacco Type: smokeless tobacco Cigarettes per Day: Quit smoking 10 + years ago; chews 1 can q3days Second Hand Exposure: No Tobacco Cessation Education Requested by Patient: No Hx Alcohol Use: Yes Alcohol Intake Frequency: holidays/special occasions only Hx Substance Use: No Beliefs That Will Affect Care: None Communication Ability: Unable Review of Systems Pertinent positives noted per HPI, comprehensive 10 system review otherwise negative. Physical Exam 2 Vital Signs (Past 24 Hours): Last Vital Signs Temp 36.7 C 12/27/18 15:40 Pulse 70 12/27/18 15:40 Resp 18 12/27/18 15:40 BP 198/112 H 12/27/18 15:40 Pulse Ox 94 12/27/18 15:40 Physical Exam: General: NAD, AAO x3, well nourished. HEENT: Normocephalic. Atraumatic. Conjunctiva pink, no scleral icterus. Neck: No carotid bruits, the carotid upstrokes are brisk. No JVD. No HJR Heart: Regular normal S-1 and S-2 no S-3 or S-4 gallop. Soft, 1/6 systolic ejection murmur heard best at the cardiac base. PMI is not displaced. No RV heave. Lungs: Clear bilateral without rales , rhonchi, or wheeze. Abdomen: Normal bowel sounds. Soft. Nontender. No masses or organomegaly. No abdominal bruits. Extremities: No clubbing, cyanosis, or edema. Pulses: radial=2/4, Dorsalis pedis =2/4, posterior tibial=2/4. Neuro: Cranial nerves grossly intact. Left upper extremity weakness. Left-sided neglect.
[2018-12-27] MEDS: METOPROLOL TARTRATE 25 MG TAB PO SCH (20:29)
[2018-12-27] MEDS: ATORVASTATIN 40 MG TAB PO SCH (20:29)
[2018-12-27] MEDS ORDERED: PHENobarbital 32.4 MG TAB PO ONE (21:00)
[2018-12-28 06:17] LABS: Albumin Level 3.3 gm/dl (3.4-5.0); BUN Creatinine Ratio 15.7 (10-20); Bilirubin Direct 0.2 mg/dl (0-0.2); Calcium 8.4 mg/dl (8.5-10.1); Creatinine Clr Calc Pharmacy 115.3 ml/min; Est GFR (African American) 110.2; Est GFR (Non-African American) 95.1; Potassium 3.7 mmol/L (3.5-5.1)
[2018-12-28 06:20] LABS: Albumin Globulin Ratio 0.9 (0.9-2); Bilirubin,Total 0.5 mg/dl (0.2-1); Globulin 3.6 gm/dl (2.5-4.0); Total Protein 6.9 gm/dl (6.4-8.2)
[2018-12-28 07:43] VITALS: BP 155/94; PULSE 67; TEMP 98.1; O2SAT 93
[2018-12-28] MEDS: SODIUM CHLORIDE 0.9% 1000ML 1,000 ML IV SCH (07:53)
[2018-12-28] MEDS: ATORVASTATIN 40 MG TAB PO SCH (07:54)
[2018-12-28] MEDS: CLOPIDOGREL BISULFATE 75 MG TAB PO SCH (07:54)
[2018-12-28] MEDS: METOPROLOL TARTRATE 25 MG TAB PO SCH (07:55)
[2018-12-28] MEDS: ASPIRIN 81 MG ECTAB PO SCH (07:55)
[2018-12-28] MEDS: QUETIAPINE FUMARATE 25 MG TABLET PO SCH ×2 (07:56→12:01)
[2018-12-28] MEDS: ENOXAPARIN INJ 40 MG/0.4 ML SYR SQ SCH (07:56)
[2018-12-28] MEDS: LISINOPRIL 5 MG TAB PO SCH (07:57)
[2018-12-28] MEDS: INSULIN ASPART 100 UNITS/ML 3 ML PEN SC SCH ×2 (07:59→11:59)
[2018-12-28] MEDS: NICOTINE 21 MG/24 HR TDSY TD SCH (08:03)
[2018-12-28] MEDS ORDERED: PHENobarbital 32.4 MG TAB PO SCH ×2 (09:00→21:00)
[2018-12-28] MEDS ORDERED: PHENOBARBITAL SODIUM IV SCH (09:00)
[2018-12-28] MEDS ORDERED: LISINOPRIL 5 MG TAB PO ONE (09:41)
--- NOTE | 2018-12-28 09:54 | Hospitalist Progress Note ---
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 MRI head showed acute infarct in the right posterior cerebral artery territory involving the medial right temporal lobe, limited portion of the right occipital lobe, and right thalamus. Neurology on board recommended dual antiplatelet Aspirin and Plavix for 30 days , then aspirin 81 mg indefinitely Statin will be started once CPK level normalizes No arrhythmia on tele monitor ECHO showed asymmetric LVH involving the base of septum, finding consistent with hypertrophic cardiomyopathy with EF 65-70% Case discussed with neurology yesterday for bout to start on anticoagulant due to hypertrophic cardiomyopathy that increases the risk for Afib and troke As per neuro his recent stroke strongly suggest localized disease rather than emboli. 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 Will continue aspirin and plavix for now Will need to arrange for a Zio ar cardio net as an outpatient Continue PT/OT eval Waiting for placement t rehab (2) Hypertrophic cardiomyopathy: ECHO finding consistent with hypertrophic cardiomyopathy Case discussed with Cardiology Dr. Luna who read the echo that recommended to start on anticoagulant with coumadin due to risk of Afib and stroke in hypertrophy cardiomyopathy patient Will need outpatient ZIO or cardio net / Currently there is no evidence of atrial fibrillation per telemetry or per history. Since patient has been periodic agitated and left sided weakness that him at high fall risk. Cardiology Agreed with continuing dual antiplatelet therapy for now If there is evidence of paroxysmal atrial fibrillation, then will need to transition patient to warfarin. Will need a 14-30-day manager monitoring in the outpatient setting Follow up with cardiology outpatient (3) Hypertensive urgency: BP elevated Will increase lisinopril to 10mg daily Starting on metoprolol Continue monitor BP closely (4) Elevated CPK: Presented with Rhabdomyolysis CPK > 2000 due to fall and prolong immobilization CPK today 324 Will d/c IVF Start on statin when CPK level normalized (5) Acute delirium: Due to acute CVA /metabolic encephalopahty --cerebral ischemia involving temporal lobe/thalamas Developed acute agitation /combativeness on floor Urine tx screen negative /ETOH Post CVA psychosis can improve in weeks vs remains chronically -due to location of CVA ( non dominant hemisphere involving temporal lobe and thalamas ) Will change seroquel to 25mg BID Will change phenobarbital IV to oral taper course of phenobarbital On phenobarbital 16.2 BID today (half the 32.4 mg tablet), then use the solution for the 8.1 mg BID x 1 day (12/29/18) and 4 mg BID x 1 (12/30/18) and then stop. (6) Diabetes: Newly diagnosed Recent Hba1c 7.8 On Novolog sliding scale per protocol Will discharge on Metformin Pharmacy and wool dyer on board (7) DVT prophylaxis: Moderate to high risk Lovenox 40mg SQ daily Disposition: Will discharge to [facility] for inpatient rehab CODE STATUS: Full code Subjective Pt was seen and examined Lying in bed with no distress Pt had a good night with no agitation or behavior changes Denies any chest pain, palpitation, dizziness and SOB Physical Exam 2 Vital Signs (Past 24 Hours): Last Vital Signs Temp 36.7 C 12/28/18 07:42 Pulse 67 12/28/18 07:42 Resp 15 12/28/18 07:42 BP 155/94 H 12/28/18 07:42 Pulse Ox 93 12/28/18 07:42 Physical Exam: General- No acute distress Head- atraumatic Eyes- PERRL, EOMI, ENT- oropharynx clear Neck- supple, no JVD Lungs- clear to auscultation Heart- regular rhythm; no murmur Abdomen- normal bowel sounds, soft, nontender Extremities- no calf tenderness Neuro- alert, oriented (not to time and current event) PERRL, EOMI; LUE weakness improves (slightly able to lift LUE up against gravity) decrease strength with squeezing in LUE. LLE weakness improves Skin- warm & dry
--- NOTE | 2018-12-28 11:57 | Cardiology Progress Note ---
Date of Service December 28, 2018 Assessment & Plan (1) Hypertrophic cardiomyopathy: Resting 2D transthoracic echocardiogram demonstrates asymmetric septal hypertrophy. Continue beta-kyle. Patient will require 14-30-day monitor as an outpatient. (2) Acute CVA (cerebrovascular accident): Appreciate neurology input. Continue dual antiplatelet therapy. Statin therapy added. (3) Hypertensive urgency: Blood pressure mildly improved. Continue Toprol-XL. Agree with titration of lisinopril to 10 mg daily. Subjective Patient seen and examined at the bedside. More cooperative today. No atrial fibrillation on telemetry. Remains in sinus rhythm. Blood pressure mildly improved with addition of Toprol-XL and lisinopril. Scheduled for transfer to rehab. Review of Systems All systems reviewed & are unremarkable except as noted in HPI & below Physical Exam 2 Vital Signs (Past 24 Hours): Last Vital Signs Temp 36.7 C 12/28/18 07:42 Pulse 67 12/28/18 07:42 Resp 15 12/28/18 07:42 BP 155/94 H 12/28/18 07:42 Pulse Ox 93 12/28/18 07:42 Physical Exam: General: NAD, AAO x3, well nourished. HEENT: Normocephalic. Atraumatic. Conjunctiva pink, no scleral icterus. Neck: No carotid bruits, the carotid upstrokes are brisk. No JVD. No HJR Heart: Regular normal S-1 and S-2 no S-3 or S-4 gallop. Soft, 1/6 systolic ejection murmur heard best at the cardiac base. PMI is not displaced. No RV heave. Lungs: Clear bilateral without rales , rhonchi, or wheeze. Abdomen: Normal bowel sounds. Soft. Nontender. No masses or organomegaly. No abdominal bruits. Extremities: No clubbing, cyanosis, or edema. Pulses: radial=2/4, Dorsalis pedis =2/4, posterior tibial=2/4. Neuro: Cranial nerves grossly intact. Left upper extremity weakness. Left-sided neglect.
[2018-12-28] MEDS ORDERED: STROKE PATIENT DISCHARGE STA (12:23)
--- NOTE | 2018-12-28 12:29 | Discharge Summary ---
Date of Service December 28, 2018 Admission HPI Per Admitting Provider This is a 68 year old male with no known medical problems to date who presents to [facility] secondary to L arm/leg weakness x 6 hours. Sister and GF are at bedside. Symptoms initially began last evening around 7:30-8pm when patient was going to [facility] and noticed numbness/tingling to L arm that persisted overnight. He sleeps on couch and when woke up rolled off the couch and was unable to get up due to profound weakness of L arm/leg. Also had incontinence of urine at the time. Currently complains of L arm/leg weakness, heartburn requesting medication. States he gets heartburn after eating certain foods and takes tums. This feels similar and describes it as a substernal burning sensation. Denies FISCHER, lightheaded, dizziness, change in vision, change in hearing, difficulty with speech or swallowing. He denies any recent illness, f/ c/s, chest pain, sob, cannon, hemoptysis, n/v/d, abdominal pain. Patient was last seen by provider approx 6 years ago when he had knee surgery for meniscus repair. He does not have a PCP. Also states his last shower was 2 weeks ago, presents with very poor hygiene. Admission Exam Per Admitting Provider Gen: Morbidly obese male, poor hygeine, excessive facial hair, NAD, lying in bed , pleasant, conversing easily and appropriately Head: Normocephalic, Atraumatic Eyes: Sclera normal, mild bilateral conjunctival injection with tearing, PERRLA , EOMI ENT: Gross hearing intact, normal pharynx, mucous membranes moist Neck: supple, no adenopathy, No JVD, no bruit, Resp: Clear to auscultation b/l, no wheeze, rales, rhonchi. 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 reflexes brisk and +2 b/l Extremities: No edema bilaterally, pedal pulse +1 and equal Skin: warm, dry, no rash, dirt crusted plaques to b/l knee, hands, fingers, toe/ plantar aspect feet, poor hygeine, no rash, negative turgor, cap refill < 2sec Neuro: Alert and oriented x 3, speech normal, good mood/affect, cran nerve 2-12 intact grossly : deferred Principal Diagnosis Right Posterior cerebral artery infarct Hypertrophic cardiomyopathy Hypertensive Urgency Diabetes type 2 Elevated CPK Discharge Exam General- No acute distress Head- atraumatic Eyes- PERRL, EOMI, ENT- oropharynx clear Neck- supple, no JVD Lungs- clear to auscultation Heart- regular rhythm; no murmur Abdomen- normal bowel sounds, soft, nontender Extremities- no calf tenderness Neuro- alert, oriented (not to time and current event) PERRL, EOMI; LUE weakness improves (slightly able to lift LUE up against gravity) decrease strength with squeezing in LUE. LLE weakness improves Skin- warm & dry Discharge Data Allergies Allergy/AdvReac Type Severity Reaction Status Date / Time No Known Allergies Allergy Unverified 12/22/18 09:57 Consultations 12/22/18 11:44 ED Decision to Admit Stat 12/22/18 12:24 Consult Neurology Routine 12/22/18 14:10 Consult Case Management - Discharge Planning Routine 12/22/18 18:29 Consult Quilt Maker Routine 12/27/18 15:54 Consult Cardiology Routine Ordered Studies 12/22/18 09:58 CT head/brain wo con Stat 12/22/18 11:44 CT angio head w con Stat CT angio neck with con Stat 12/22/18 12:24 MR brain wo con Stat After further consultation with the ICU physician regarding the patient's clinical presentation, these findings could also be compatible with encephalitis , the distribution specifically raising concern for herpes encephalitis. These findings were discussed with ICU physician by Dr. Ring on 12/23/2018 11 :24 AM. Electronically signed by: Rmaon Ring M.D. 12/23/2018 11:24 AM ORIGINAL REPORT MR brain wo con CLINICAL HISTORY: 68 years-old Male presenting with CVA. TECHNIQUE: Multisequence, multiplanar MR imaging of the brain was performed without the use of intravenous contrast. IV contrast: None. COMPARISON: Noncontrast CT head from 12/22/2018. FINDINGS: Localizer images: Unremarkable. Proportional ventricular and sulcal prominence, likely age-related parenchymal volume loss. Restricted diffusion in the right posterior cerebral artery distribution affecting the medial right temporal lobe and a limited portion of the right occipital lobe as well as the right thalamus. Associated T2/FLAIR hyperintensity of these regions suggests infarct at least 6-12 hours old. No mass effect or midline shift. No hemorrhage. No extra-axial fluid collection. T2 skull base flow voids preserved. Bone marrow signal intensity within the calvarium within normal limits. IMPRESSION: 1. Acute infarct in the right posterior cerebral artery territory involving the medial right temporal lobe, limited portion of the right occipital lobe, and right thalamus. This infarct is at least 6-12 hours old. No hemorrhage. The report will be called/faxed according to standard departmental protocol. Electronically signed by: Ramon Ring M.D. 12/23/2018 10:35 AM Dictated: 12/23/18 1123 Transcribed: 12/23/[address] angio neck with con, CT angio head w con CLINICAL HISTORY: 68 years-old Male with cva. Acute strokelike symptoms COMPARISON STUDY: CT head of same day TECHNIQUE: Following the IV administration of 119 ml of Optiray 320, CT angiogram of the neck was performed from the aortic arch to the skull apex. Images are reviewed in the axial, sagittal, and coronal planes. 3-D MIPS images are created and assessed. IV contrast was administered without complication. All measurements were calculated based on NASCET criteria. A dose lowering technique was utilized adhering to the principles of ALARA. CT DOSE: 570.13 mGy.cm FINDINGS: Normal three-vessel morphology of aortic arch. The imaged bilateral subclavian arteries are widely patent. Mild mostly atheromatous plaque formation about the bilateral carotid bulbs with less than 50% luminal narrowing. The bilateral internal carotid arteries are otherwise widely patent and unremarkable. Mild luminal narrowing at the proximal aspect of the left M1 segment on image 99 series 3 secondary to atheromatous plaque. The remainder of the bilateral middle and anterior cerebral arteries are unremarkable and widely patent. The anterior communicating artery appears normal. The vertebral arteries appear codominant and are widely patent without aneurysm , dissection, high-grade stenosis or proximal branch occlusion. Basilar artery is also patent and unremarkable. The bilateral posterior cerebral arteries appear widely patent and within normal limits. Cerebral venous sinuses are also patent and unremarkable. Lung apices appear generally clear without pneumothorax. Indeterminate 11 x 9 mm right tracheoesophageal recess lymph node. 10 mm hypodense nodule of the inferior right thyroid. No adenopathy. Soft tissues of the neck are otherwise unremarkable. Bones appear to be intact. Mild mucosal thickening of the maxillary and ethmoid sinuses. Multilevel spondylitic spurring with facet arthrosis of the spine. IMPRESSION: 1. Mild atheromatous plaque formation of the bilateral carotid bulbs results in less than 50% luminal narrowing bilaterally. 2. Otherwise unremarkable CTA without aneurysm, dissection, high-grade stenosis or proximal branch occlusion. 3. Incidental findings as above. The above report was generated using voice recognition software. It may contain grammatical, syntax or spelling errors. Electronically signed by: Hemanth Acuña M.D. 12/22/2018 1:12 PM Dictated: 12/22/18 1303 Transcribed: 12/22/[address] angio neck with con, CT angio head w con CLINICAL HISTORY: 68 years-old Male with cva. Acute strokelike symptoms COMPARISON STUDY: CT head of same day TECHNIQUE: Following the IV administration of 119 ml of Optiray 320, CT angiogram of the neck was performed from the aortic arch to the skull apex. Images are reviewed in the axial, sagittal, and coronal planes. 3-D MIPS images are created and assessed. IV contrast was administered without complication. All measurements were calculated based on NASCET criteria. A dose lowering technique was utilized adhering to the principles of ALARA. CT DOSE: 570.13 mGy.cm FINDINGS: Normal three-vessel morphology of aortic arch. The imaged bilateral subclavian arteries are widely patent. Mild mostly atheromatous plaque formation about the bilateral carotid bulbs with less than 50% luminal narrowing. The bilateral internal carotid arteries are otherwise widely patent and unremarkable. Mild luminal narrowing at the proximal aspect of the left M1 segment on image 99 series 3 secondary to atheromatous plaque. The remainder of the bilateral middle and anterior cerebral arteries are unremarkable and widely patent. The anterior communicating artery appears normal. The vertebral arteries appear codominant and are widely patent without aneurysm , dissection, high-grade stenosis or proximal branch occlusion. Basilar artery is also patent and unremarkable. The bilateral posterior cerebral arteries appear widely patent and within normal limits. Cerebral venous sinuses are also patent and unremarkable. Lung apices appear generally clear without pneumothorax. Indeterminate 11 x 9 mm right tracheoesophageal recess lymph node. 10 mm hypodense nodule of the inferior right thyroid. No adenopathy. Soft tissues of the neck are otherwise unremarkable. Bones appear to be intact. Mild mucosal thickening of the maxillary and ethmoid sinuses. Multilevel spondylitic spurring with facet arthrosis of the spine. IMPRESSION: 1. Mild atheromatous plaque formation of the bilateral carotid bulbs results in less than 50% luminal narrowing bilaterally. 2. Otherwise unremarkable CTA without aneurysm, dissection, high-grade stenosis or proximal branch occlusion. 3. Incidental findings as above. The above report was generated using voice recognition software. It may contain grammatical, syntax or spelling errors. Electronically signed by: Hemanth Acuña M.D. 12/22/2018 1:12 PM Dictated: 12/22/18 1303 Transcribed: 12/22/[address] head/brain wo con CLINICAL HISTORY: 68 years-old Male with left sided weakness. Acute strokelike symptoms with left-sided weakness TECHNIQUE: Multiple axial CT images of the head were obtained without contrast. A dose lowering technique was utilized adhering to the principles of ALARA. CT DOSE: 537.48 mGy.cm COMPARISON: None. FINDINGS: Study limited secondary to patient positioning and motion artifact. No acute intracranial hemorrhage, midline shift, intracranial mass, hydrocephalus, territorial ischemia or abnormal extra-axial collection. Age-related involutional changes. Scattered ill-defined hypodensities about the white matter suggest chronic microvascular ischemic changes. The calvarium is intact. Note is made of disconjugate gaze. Soft tissues are unremarkable. The paranasal sinuses, mastoid air cells, and middle ear cavities are clear. IMPRESSION: No acute intracranial abnormality. The above report was generated using voice recognition software. It may contain grammatical, syntax or spelling errors. Electronically signed by: Hemanth Acuña M.D. 12/22/2018 10:55 AM Dictated: 12/22/18 1053 Transcribed: 12/22/18 1053 XR chest 1V portable HISTORY: 68 years-old Male weakness acute weakness COMPARISON: Chest radiograph 08/04/2008 TECHNIQUE: Portable AP view of the chest FINDINGS: Cardiomediastinal and hilar silhouettes are within normal limits. There is no pneumothorax, pleural effusion, focal airspace consolidation or overt pulmonary edema. Bones of the chest appear grossly intact. IMPRESSION: No acute process. The above report was generated using voice recognition software. It may contain grammatical, syntax or spelling errors. Electronically signed by: Hemanth Acuña M.D. 12/22/2018 10:14 AM Dictated: 12/22/18 1012 Transcribed: 12/22/18 1012 Hospital Course (1) Acute CVA (cerebrovascular accident): Right Posterior cerebral artery infarct Presented on admission with left sided weakness and confusion No TPA was given since her symptoms was more than 12hrs when arrival to the ER, out of the window CTA head/neck showed dissection, high-grade stenosis or proximal branch occlusion. MRI head showed acute infarct in the right posterior cerebral artery territory involving the medial right temporal lobe, limited portion of the right occipital lobe, and right thalamus. Neurology on board recommended dual antiplatelet Aspirin and Plavix for 30 days , then aspirin 81 mg indefinitely Statin will be started once CPK level normalizes No arrhythmia on tele monitor ECHO showed asymmetric LVH involving the base of septum, finding consistent with hypertrophic cardiomyopathy with EF 65-70% Case discussed with neurology yesterday for bout to start on anticoagulant due to hypertrophic cardiomyopathy that increases the risk for Afib and troke As per neuro his recent stroke strongly suggest localized disease rather than emboli. He would not be a good candidate for care home coumadin for now due to periodic agitation and impulsivity and also his left sided deficits that put him at high risk for fall. Will continue aspirin and plavix for now Will need to arrange for a Zio ar cardio net as an outpatient Continue PT/OT eval Waiting for placement t rehab (2) Hypertrophic cardiomyopathy: ECHO finding consistent with hypertrophic cardiomyopathy Case discussed with Cardiology Dr. Luna who read the echo that recommended to start on anticoagulant with coumadin due to risk of Afib and stroke in hypertrophy cardiomyopathy patient Will need outpatient ZIO or cardio net 12/28 Currently there is no evidence of atrial fibrillation per telemetry or per history. Since patient has been periodic agitated and left sided weakness that him at high fall risk. Cardiology Agreed with continuing dual antiplatelet therapy for now If there is evidence of paroxysmal atrial fibrillation, then will need to transition patient to warfarin. Will need a 14-30-day gambling monitor in the outpatient setting Follow up with cardiology outpatient (3) Hypertensive urgency: BP elevated Will increase lisinopril to 10mg daily Starting on metoprolol Continue monitor BP closely (4) Elevated CPK: Presented with Rhabdomyolysis CPK > 2000 due to fall and prolong immobilization CPK today 324 Will d/c IVF Start on statin when CPK level normalized (5) Acute delirium: Due to acute CVA /metabolic encephalopahty --cerebral ischemia involving temporal lobe/thalamas Developed acute agitation /combativeness on floor Urine tx screen negative /ETOH Post CVA psychosis can improve in weeks vs remains chronically -due to location of CVA ( non dominant hemisphere involving temporal lobe and thalamas ) Will change seroquel to 25mg BID Will change phenobarbital IV to oral taper course of phenobarbital On phenobarbital 16.2 BID today (half the 32.4 mg tablet), then use the solution for the 8.1 mg BID x 1 day (12/29/18) and 4 mg BID x 1 (12/30/18) and then stop. (6) Diabetes: Newly diagnosed Recent Hba1c 7.8 On Novolog sliding scale per protocol Will discharge on Metformin Pharmacy and community nutrition educator on board (7) DVT prophylaxis: Moderate to high risk Lovenox 40mg SQ daily Disposition: Will discharge to [facility] for inpatient rehab CODE STATUS: Full code Total Time Total Time Spent Total Time Spent (In Minutes): 35 minutes Total Time Includes: Examination of the Patient, Discharge Planning, Medication Reconciliation, Communication With Other Providers and Other Discharge Plan Discharge Items Patient Disposition: Transfer Inpatient Rehab Fac Reason For Visit: CVA Discharge Diagnosis: Right Posterior cerebral artery infarct Hypertrophic cardiomyopathy Hypertensive Urgency Diabetes type 2 Discharge Goals: Decrease discomfort, Diagnostic testing, Improve function and Increase independence Activity: Resume your previous activity Activity Comment: As tolerated Non-emergency contact: Primary Care Provider, Activity Therapy Teacher and Neurologist Call non-emergency contact if: you have any medication questions Diet: Carb Consistent or DM2 Addtl Provider Instructions: Follow up with your primary care provider once discharge from rehab Follow up with neurology Dr. Robles in 3 to 4 weeks (Please call to schedule for the appointment) Follow up with cardiology Dr. Luna in 4 to 6 weeks (please call to schedule for the appointment) Continue physical and occupational therapy Continue monitor your blood pressure Will need to start on Statin once CPK level within normal limit Starting on Lisinopril for your blood pressure please check BMP to monitor electrolytes and kidney function Check liver enzymes once starting on Statin Check Hba1c between 4 to 6 months Follow up a healthy diabetes diet and limited concentrated sweet intake Continue plavix and aspirin for now Please notify your physician if you develop any abnormal bleeding (blood in your urine and stool) Fall precaution Will send with 1 tab Phenobarbital 16.2 mg to take tonight. Continue phenobarbital taper dose (will take 8mg BID on 12/29 and 4mg BID on 12/30, then stop) Prescriptions: New quetiapine 25 mg Tablet 12.5 mg PO BID 30 Days Qty: 30 RF: 0 atorvastatin 40 mg Tablet 40 mg PO QAM Qty: 30 RF: 0 clopidogrel 75 mg Tablet 75 mg PO QAM Qty: 30 RF: 0 aspirin [Ecotrin Low Strength] 81 mg Tablet,Delayed Release (Dr/Ec) 81 mg PO QAM Qty: 30 RF: 0 lisinopril [Zestril] 10 mg Tablet 10 mg PO QAM Qty: 30 RF: 0 metoprolol succinate [Toprol XL] 25 mg tablet extended release 24 hr 25 mg PO DAILY Qty: 30 RF: 0 phenobarbital 20 mg/5 mL (4 mg/mL) Elixir 4 mg PO UD 2 Days Qty: 50 RF: 0 metformin 500 mg tablet 500 mg PO BID Qty: 60 RF: 0 No Action No Known Home Medications RF: 0 Stand-Alone Forms: [facility] Discharge Orders: Discharge Order (Routine); Ordered 12/28/18 Ordered By: Stanton Prieto Skilled Items Patient informed of condition?: Yes DNR: No Discharge Level of Care: Acute rehab Communicable Disease: No Discharge Prognosis: Stable Admission Data Admit Date/Time: 12/22/18 12:24 Attending Provider: Stanton Prieto Admit Provider: Kristine Calhoun Primary Care Provider: PCP,NO Other Providers: Daniel Robles ; Tana Burris ; Kristine Calhoun ; Mei Segundo ; Morgan Luna Service: Telemetry
[2018-12-28] MEDS ORDERED: PHENobarbital 32.4 MG TAB PO ONE (12:30)
[2018-12-29] MEDS ORDERED: LISINOPRIL 10 MG TAB PO SCH (09:00)
== END 2018-12-28 14:00 | DRG 64 ==
LOC: ED 09:35 → SUATTDRO 12:24 → 2S 12:24 → 1E 18:38 → 2E 12-23 18:58
DX: E11.65 Type 2 diabetes mellitus with hyperglycemia; G93.49 Other encephalopathy; I16.0 Hypertensive urgency; F41.9 Anxiety disorder, unspecified; F17.220 Nicotine dependence, chewing tobacco, uncomplicated; I67.82 Cerebral ischemia; Z68.32 Body mass index [BMI] 32.0-32.9, adult; Z83.3 Family history of diabetes mellitus; Z78.1 Physical restraint status; R20.2 Paresthesia of skin; I42.2 Other hypertrophic cardiomyopathy; I63.531 Cerebral infarction due to unspecified occlusion or stenosis of right posterior cerebral artery; F40.240 Claustrophobia; G81.94 Hemiplegia, unspecified affecting left nondominant side; Z82.49 Family history of ischemic heart disease and other diseases of the circulatory system; R45.1 Restlessness and agitation; Z91.81 History of falling; R40.2413 Glasgow coma scale score 13-15, at hospital admission; F10.21 Alcohol dependence, in remission; G93.6 Cerebral edema; Z51.81 Encounter for therapeutic drug level monitoring; R29.704 NIHSS score 4; M62.82 Rhabdomyolysis; E66.3 Overweight; H53.40 Unspecified visual field defects; R46.0 Very low level of personal hygiene

== ENCOUNTER 2021-06-22 09:21 | Inpatient (IN) ==
[2021-06-22] MEDS ORDERED: ONDANSETRON INJ 2 MG/ML 2 ML VIAL IV STA (09:38)
[2021-06-22] MEDS ORDERED: SODIUM CHLORIDE 0.9% 500 ML IV SCH (09:45)
--- NOTE | 2021-06-22 09:47 | Emergency Department Note ---
Impression & Plan Weakness, Anemia, Acute dehydration, Vomiting ED Provider Note NAME: SKYLA HARRELL AGE: 70 SEX: M : 1950 ARRIVES VIA: Ambulance INFORMANT: [Patient][ems] ED PROVIDER(S): [Yvon Sol MD] CHIEF COMPLAINT: Weakness HISTORY OF PRESENT ILLNESS: The patient is a 70-year-old male who states that he was recently diagnosed with liver lesions. He is in the process of having this worked up. The patient states that this morning, he just had a hard time getting out of bed. He was quite weak. He stumbled getting out of the shower and fell, his helpers at home were able to get him back up. He did not suffer any injuries. There was no loss of consciousness. Patient developed some nausea this morning and then vomited a few times. He was reportedly confused at 1 point. He was sent by ambulance to the hospital. The patient states he now feels better than he did this morning. He did receive a 400 cc bolus of saline in route. He no longer feels nauseated. He is not coughing, he is not short of breath. There is no chest or abdominal pain. He denies any diarrhea or urinary complaints. He is vaccinated against COVID-19. Of note, EMS reported a temperature of 100.4 prior to arrival. REVIEW OF SYSTEMS: See HPI for pertinent positives and negatives. A total of ten systems were reviewed and were otherwise negative. PMHx/PSHx: See Below SOCIAL HISTORY: See Below. PHYSICAL EXAM: GENERAL: Patient is in no acute distress. HEENT: No acute trauma, normocephalic atraumatic, mucous membranes dry, no nasal congestion, no scleral icterus. NECK: No stridor, no adenopathy, no meningismus, trachea is midline. LUNGS: Clear to auscultation bilaterally, no wheeze, no rhonchi, breath sounds equal. HEART: 1/6 systolic murmur, regular rate and rhythm. ABDOMEN: Soft, nontender, bowel sounds positive, no hernias, no peritonitis. A feeding tube is noted in the upper abdomen. EXTREMITIES: No cyanosis or edema, full range of motion of all the joints without pain or difficulty, no signs for acute trauma. NEUROLOGIC: Oriented x 3, no acute motor or sensory deficits, no focal weakness. SKIN: No rash, no jaundice, no diaphoresis. Buttock: The patient has a small half centimeter area of skin breakdown to the mid superior sacrum, no surrounding erythema, no discharge. Rectal: Brown stool, heme-negative. DIFFERENTIAL DIAGNOSIS: Infection, dehydration, metabolic abnormality, hypo/hyperglycemia, COVID-19, electrolyte disturbance, anemia, hypoxia, cardiac sources, intracerebral event, toxicologic issues, stroke, TIA, as well as other pathologies. EMERGENCY DEPARTMENT COURSE/PROCEDURES: ECG: Indication was weakness. The ECG shows a normal sinus rhythm with a rate of 82. There is no ST elevation, no PVCs. The QTc is 434. Continuous Cardiac Monitoring: An order was placed for continuous cardiac monitoring. The monitor shows a rate of 80 with normal sinus rhythm. MEDICAL DECISION MAKING: There is no leukocytosis. The patient is quite anemic though with a hemoglobin of 7.2. Platelet count was normal. The patient was somewhat hyponatremic with a sodium of 131. No kidney failure. Lactic acid level was elevated at 3.7, consistent with infection and/or dehydration. There were some liver enzyme elevations, the bilirubin however was normal. The patient appeared to be in a euthyroid state. ECG shows a sinus rhythm, no acute ischemia. Cardiac enzyme testing x1 is not consistent with acute cardiac injury. Urinalysis does not show evidence for infection. Covid testing returned negative. Chest film did not show pneumonia or CHF. Brain CT shows no acute bleed or mass-effect. Old infarcts were seen. Abdominal and pelvis CT shows liver lesions, no acute surgical process by CT scan. No bowel obstruction. I did perform a rectal exam, stool was brown and heme-negative. The patient presents with weakness, some confusion, some vomiting. He is in need of a hospital stay and will likely require a blood transfusion. He did consent for transfusion, the paperwork was signed. I spoke to the patient, I talked with his family. I spoke with case management, the on-call hospitalist has been consulted. While in the ED, the patient was given IV saline for hydration, he was given IV Zofran for nausea, he is currently resting comfortably and mentating well. Past Med/Surg History Medical History Acute CVA (cerebrovascular accident) (12/22/18) due to embolism of right posterior cerebral artery - residual short term memory loss/left sided weakness (uses walker), follows with neurology (Dr. Robles) Acute delirium Anxiety Chronic back pain Diabetes mellitus, type 2 NIDDM Elevated CPK GERD (gastroesophageal reflux disease) History of colon polyps Hyperlipidemia Hypertension Hypertensive urgency Hypertrophic cardiomyopathy No LVOT obstruction per 12/2020 echo Paroxysmal supraventricular tachycardia + loop recorder Port-A-Cath in place Left Short-term memory loss due to stroke Squamous cell carcinoma of base of tongue Surgical History (Updated 02/18/21 @ 09:34 by Odalys Hernandez RN) H/O tooth extraction several History of arthroscopy of right knee meniscus repair History of colonoscopy with polypectomy (2019) History of excision of pilonidal cyst History of lymph node biopsy (12/18/20) History of tonsillectomy and adenoidectomy as a child History of vasectomy S/P percutaneous endoscopic gastrostomy (PEG) tube placement (02/15/21) Status post placement of implantable loop recorder currently in place Family History (Updated 02/18/21 @ 09:37 by Odalys Hernandez RN) Father , Passed age 83 of multiple comorbidities T2DM (type 2 diabetes mellitus) Coronary heart disease Multiple complications of type 2 diabetes mellitus Family history of diabetes mellitus Mother , Passed age 96 of natural causes T2DM (type 2 diabetes mellitus) Family history of diabetes mellitus Melanoma in Eye - Removal of Eye Sister Family history of diabetes mellitus Grandfather (Maternal) Family history of diabetes mellitus Grandfather (Paternal) Family history of diabetes mellitus Throat cancer, Onset Age: 84 Grandmother (Paternal) Family history of diabetes mellitus Grandmother (Maternal) Family history of diabetes mellitus Sister No problems noted. Sister No problems noted. Son No problems noted. Son No problems noted. Daughter No problems noted. 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 Feels Safe at Home: Yes Childhood Exposure to Second-Hand Smoke: No Diet Comment: PEG - Bolus feedings q 3 hrs x 5 caffeine: No during the past year weight has: remained stable Dental Care, Regularly: No Assistive Devices: Walker Allergies Allergies Allergy/AdvReac Type Severity Reaction Status Date / Time No Known Allergies Allergy Verified 06/22/21 10:41 Home Meds Home Medications Medication Instructions Recorded Confirmed gabapentin 300 mg capsule 300 mg PO BID 03/29/19 06/22/21 (Neurontin) metoprolol succinate 25 mg 25 mg PO QAM 03/29/19 06/22/21 tablet,extended release 24 hr (Toprol XL) omeprazole 20 mg capsule,delayed 20 mg PO BID 02/04/21 06/22/21 release lactase 3,000 unit tablet (Lactaid) 3,000 unit PO TIDM PRN tab 02/18/21 06/22/21 atorvastatin 40 mg tablet (Lipitor) 40 mg PO QAM 06/22/21 06/22/21 escitalopram oxalate 20 mg tablet 20 mg PO QAM 06/22/21 06/22/21 (Lexapro) food supplemt, lactose-reduced 5 ea FEEDING TUBE UD 06/22/21 06/22/21 (Ensure) lisinopril 5 mg tablet (Zestril) 2.5 mg PO HS 06/22/21 06/22/21 metformin 500 mg tablet 500 mg PO BIDM 06/22/21 06/22/21 mirtazapine 15 mg tablet (Remeron) 15 mg PO HS 06/22/21 06/22/21 ondansetron 8 mg disintegrating 8 mg PO Q8H PRN 06/22/21 06/22/21 tablet Previous Rx's Medication Instructions Recorded aspirin 81 mg tablet,delayed 81 mg PO QAM #30 tab 12/28/18 release (Ecotrin Low Strength) Results & Data (ED) Vital Signs Vital Signs - 24 hr 06/22/21 09:32 06/22/21 09:43 06/22/21 11:32 Temperature 37.4 C Temperature Source Oral Pulse Rate 80 Pulse Rate [Apical] 78 Respiratory Rate 18 18 Blood Pressure 104/61 Blood Pressure [Left Arm] 101/58 L Blood Pressure Mean 75 Blood Pressure Mean [Left Arm] 72 Pulse Oximetry 94 94 97 Oxygen Delivery Method Room Air Room Air Room Air Sepsis Recent Fever Within 48 Hours No Sepsis New/Unexplained Change in Mental Status No Sepsis Action Taken by Nursing No Action Required 06/22/21 13:00 Temperature Temperature Source Pulse Rate Pulse Rate [Apical] 74 Respiratory Rate 18 Blood Pressure Blood Pressure [Left Arm] 102/65 Blood Pressure Mean Blood Pressure Mean [Left Arm] 77 Pulse Oximetry 95 Oxygen Delivery Method Room Air Sepsis Recent Fever Within 48 Hours Sepsis New/Unexplained Change in Mental Status Sepsis Action Taken by Usp Medications Current Medication List: was personally reviewed by me Laboratory Data Attestation: I reviewed the patient's lab results. Result diagrams: 06/22/21 10:01 06/22/21 10:01 Lab Results 06/22/21 06/22/21 06/22/21 Range/Units 10:00 10:00 10:01 WBC 8.36 (4.8-10.8) K/uL RBC 2.87 L (4.7-6.1) M/uL Hgb 7.2 L (14.0-18.0) g/dL Hct 23.5 L (42-52) % MCV 81.9 (80-100) fL MCH 25.1 (25-34) pg MCHC 30.6 L (32-36) g/dL RDW Std Deviation 45.9 (36.4-46.3) fL RDW Coeff of Sun 15.3 H (11.5-14.5) % Plt Count 372 (130-400) K/uL MPV 9.9 (7.4-10.4) fL Immature Gran % (Auto) 0.6 % Neut % (Auto) 87.5 % Lymph % (Auto) 6.5 % Villalba % (Auto) 5.3 % Eos % (Auto) 0.1 % Baso % (Auto) 0.0 % Neut # (Auto) 7.32 H (1.4-6.5) K/uL Lymph # (Auto) 0.54 L (1.2-3.4) K/uL Villalba # (Auto) 0.44 (0.11-0.59) K/uL Eos # (Auto) 0.01 (0-0.5) K/uL Baso # (Auto) 0.00 (0-0.2) K/uL Immature Gran # (Auto) 0.05 H (0.00-0.02) K/uL RBC Morphology Unremarkable Sodium (136-145) mmol/L Potassium (3.5-5.1) mmol/L Chloride (98-107) mmol/L Carbon Dioxide (21-32) mmol/L Anion Gap (3-11) BUN (7-18) mg/dl Creatinine (0.6-1.4) mg/dl Est Cr Clr Drug Dosing ml/min Est GFR ( Amer) ml/min Est GFR (Non-Af Amer) ml/min BUN/Creatinine Ratio (10-20) Glucose (70-99) mg/dl Lactate (0.4-2.0) mmol/L Calcium (8.5-10.1) mg/dl Magnesium (1.8-2.4) mg/dl Total Bilirubin (0.2-1) mg/dl AST (15-37) U/L ALT (12-78) U/L Alkaline Phosphatase (45-117) U/L Troponin I (0-0.045) ng/ml Total Protein (6.4-8.2) gm/dl Albumin (3.4-5.0) gm/dl Globulin (2.5-4.0) gm/dl Albumin/Globulin Ratio (0.9-2) TSH (0.300-4.500) uIu/ml Urine Color Urine Appearance (Clear) Urine pH (4.5-7.5) Ur Specific [place] (1.000-1.030) Urine Protein (Negative) Urine Glucose (UA) (Negative) Urine Ketones (Negative) Urine Blood (Negative) Urine Nitrite (Negative) Urine Bilirubin (Negative) Urine Urobilinogen (Negative) Ur Leukocyte Esterase (Negative) Urine WBC (Auto) (0-5) /hpf Urine RBC (Auto) (0-4) /hpf U Hyaline Cast (Auto) (0-5) /lpf U Epithel Cells (Auto) (0-5) /lpf Urine Bacteria (Auto) (Negative) COVID-19 Eval Order Covid19 at [facility] SARS-CoV-2 (PCR) NEGATIVE (Negative) Blood Type Blood Type Recheck Antibody Screen Crossmatch 06/22/21 06/22/21 06/22/21 Range/Units 10:01 10:01 10:04 WBC (4.8-10.8) K/uL RBC (4.7-6.1) M/uL Hgb (14.0-18.0) g/dL Hct (42-52) % MCV (80-100) fL MCH (25-34) pg MCHC (32-36) g/dL RDW Std Deviation (36.4-46.3) fL RDW Coeff of Sun (11.5-14.5) % Plt Count (130-400) K/uL MPV (7.4-10.4) fL Immature Gran % (Auto) % Neut % (Auto) % Lymph % (Auto) % Villalba % (Auto) % Eos % (Auto) % Baso % (Auto) % Neut # (Auto) (1.4-6.5) K/uL Lymph # (Auto) (1.2-3.4) K/uL Villalba # (Auto) (0.11-0.59) K/uL Eos # (Auto) (0-0.5) K/uL Baso # (Auto) (0-0.2) K/uL Immature Gran # (Auto) (0.00-0.02) K/uL RBC Morphology Sodium 131 L (136-145) mmol/L Potassium 4.6 (3.5-5.1) mmol/L Chloride 99 (98-107) mmol/L Carbon Dioxide 25 (21-32) mmol/L Anion Gap 7.0 (3-11) BUN 34 H (7-18) mg/dl Creatinine 0.91 (0.6-1.4) mg/dl Est Cr Clr Drug Dosing 85.3 ml/min Est GFR ( Amer) 100.0 ml/min Est GFR (Non-Af Amer) 86.3 ml/min BUN/Creatinine Ratio 37.0 H (10-20) Glucose 123 H (70-99) mg/dl Lactate 3.7 H* (0.4-2.0) mmol/L Calcium 8.6 (8.5-10.1) mg/dl Magnesium 2.0 (1.8-2.4) mg/dl Total Bilirubin 0.4 (0.2-1) mg/dl AST 138 H (15-37) U/L ALT 55 (12-78) U/L Alkaline Phosphatase 259 H (45-117) U/L Troponin I < 0.015 (0-0.045) ng/ml Total Protein 6.8 (6.4-8.2) gm/dl Albumin 2.1 L (3.4-5.0) gm/dl Globulin 4.7 H (2.5-4.0) gm/dl Albumin/Globulin Ratio 0.4 L (0.9-2) TSH 1.050 (0.300-4.500) uIu/ml Urine Color Urine Appearance (Clear) Urine pH (4.5-7.5) Ur Specific [place] (1.000-1.030) Urine Protein (Negative) Urine Glucose (UA) (Negative) Urine Ketones (Negative) Urine Blood (Negative) Urine Nitrite (Negative) Urine Bilirubin (Negative) Urine Urobilinogen (Negative) Ur Leukocyte Esterase (Negative) Urine WBC (Auto) (0-5) /hpf Urine RBC (Auto) (0-4) /hpf U Hyaline Cast (Auto) (0-5) /lpf U Epithel Cells (Auto) (0-5) /lpf Urine Bacteria (Auto) (Negative) COVID-19 Eval Order SARS-CoV-2 (PCR) (Negative) Blood Type A Positive Blood Type Recheck Antibody Screen NEGATIVE Crossmatch See Detail 06/22/21 06/22/21 Range/Units 10:50 10:51 WBC (4.8-10.8) K/uL RBC (4.7-6.1) M/uL Hgb (14.0-18.0) g/dL Hct (42-52) % MCV (80-100) fL MCH (25-34) pg MCHC (32-36) g/dL RDW Std Deviation (36.4-46.3) fL RDW Coeff of Sun (11.5-14.5) % Plt Count (130-400) K/uL MPV (7.4-10.4) fL Immature Gran % (Auto) % Neut % (Auto) % Lymph % (Auto) % Villalba % (Auto) % Eos % (Auto) % Baso % (Auto) % Neut # (Auto) (1.4-6.5) K/uL Lymph # (Auto) (1.2-3.4) K/uL [place] # (Auto) (0.11-0.59) K/uL Eos # (Auto) (0-0.5) K/uL Baso # (Auto) (0-0.2) K/uL Immature Gran # (Auto) (0.00-0.02) K/uL RBC Morphology Sodium (136-145) mmol/L Potassium (3.5-5.1) mmol/L Chloride (98-107) mmol/L Carbon Dioxide (21-32) mmol/L Anion Gap (3-11) BUN (7-18) mg/dl Creatinine (0.6-1.4) mg/dl Est Cr Clr Drug Dosing ml/min Est GFR ( Amer) ml/min Est GFR (Non-Af Amer) ml/min BUN/Creatinine Ratio (10-20) Glucose (70-99) mg/dl Lactate (0.4-2.0) mmol/L Calcium (8.5-10.1) mg/dl Magnesium (1.8-2.4) mg/dl Total Bilirubin (0.2-1) mg/dl AST (15-37) U/L ALT (12-78) U/L Alkaline Phosphatase (45-117) U/L Troponin I (0-0.045) ng/ml Total Protein (6.4-8.2) gm/dl Albumin (3.4-5.0) gm/dl Globulin (2.5-4.0) gm/dl Albumin/Globulin Ratio (0.9-2) TSH (0.300-4.500) uIu/ml Urine Color Yellow Urine Appearance Clear (Clear) Urine pH 5.5 (4.5-7.5) Ur Specific [place] 1.013 (1.000-1.030) Urine Protein 1+ H (Negative) Urine Glucose (UA) Negative (Negative) Urine Ketones Negative (Negative) Urine Blood Negative (Negative) Urine Nitrite Negative (Negative) Urine Bilirubin Negative (Negative) Urine Urobilinogen Negative (Negative) Ur Leukocyte Esterase Negative (Negative) Urine WBC (Auto) 1-5 (0-5) /hpf Urine RBC (Auto) 0-4 (0-4) /hpf U Hyaline Cast (Auto) 0 (0-5) /lpf U Epithel Cells (Auto) 10-20 H (0-5) /lpf Urine Bacteria (Auto) Negative (Negative) COVID-19 Eval Order SARS-CoV-2 (PCR) (Negative) Blood Type Blood Type Recheck A Positive Antibody Screen Crossmatch Administered Medications Discontinued Medications Sodium Chloride (Nss) 500 mls @ 999 mls/hr IV .[id number] MARIA D Stop: 06/22/21 10:15 Last Infusion: 06/22/21 10:39 Dose: 0 mls/hr Documented by: [id number] Admin: 06/22/21 10:07 Dose: 999 mls/hr Documented by: [id number] Ondansetron HCl (Ondansetron Inj 2 Mg/Ml 2 Ml Vial) 4 mg IV NOW STA Stop: 06/22/21 09:39 Last Admin: 06/22/21 10:07 Dose: 4 mg Documented by: [id number] Imaging Data Radiologist's Impression: Chest X-Ray 06/22/21 09:38 XR chest 1V portable HISTORY: 70 years-old Male weakness acute weakness COMPARISON: Chest radiograph 12/22/2018, chest CT 09/18/2020 TECHNIQUE: AP view of the chest FINDINGS: Cardiac mediastinal and hilar silhouettes are unchanged. Left IJ Utuwvn-e-Yfjy catheter distal tip terminates within the region of the IJ brachiocephalic venous confluence. Loop recorder device present. No pneumothorax, pleural effusion, airspace consolidation or overt pulmonary edema. Degenerative changes of the shoulders and spine. IMPRESSION: No acute process. ACT 112: Negative or not required by law. The above report was generated using voice recognition software. It may contain grammatical, syntax or spelling errors. Electronically signed by: Reji Acuña M.D. 06/22/2021 11:[address] 06/22/21 09:38 CT head/brain wo con CLINICAL HISTORY: 70 years-old Male with weakness. Acute weakness TECHNIQUE: Multiple axial CT images of the head were obtained without contrast. A dose lowering technique was utilized adhering to the principles of ALARA. CT DOSE: 614.27 mGy.cm COMPARISON: Brain MRI 12/23/2018, head CT 12/22/2018 FINDINGS: No acute intracranial hemorrhage, midline shift, intracranial mass, hydrocephalu s, territorial ischemia or abnormal extra-axial collection. Age-related involutional changes. Encephalomalacia from chronic right temporal occipital infarct. Chronic lacunar infarct of the right thalamus. The calvarium is intact. The paranasal sinuses, mastoid air cells, and middle ear cavities are clear. IMPRESSION: 1. No acute intracranial abnormality. 2. Chronic infarcts of the right temporal and occipital lobes. 3. Chronic lacunar infarct of the right thalamus. ACT 112: Negative or not required by law. The above report was generated using voice recognition software. It may contain grammatical, syntax or spelling errors. Electronically signed by: Reji Acuña M.D. 06/22/2021 10:27 AM Abdomen/Pelvis CT 06/22/21 11:02 CT abd pelvis IV con only CLINICAL HISTORY: nv, hist liver lesions COMPARISON STUDY: June 11, 2021 TECHNIQUE: A dose lowering technique was utilized adhering to the principles of ALARA. CT DOSE: 589.50 mGy.cm FINDINGS: Lower chest: Mild atelectasis is seen at dependent portions of bilateral lower lobes.. Liver: Evaluation of the liver again shows multiple hypoattenuating lesions within its parenchyma. Largest lesion is measuring 6.0 cm in diameter and seen near liver dome, slightly enlarged since recent prior study in June 11, 2021 when it was measured 5.7 cm when measured in similar fashion. Hypoattenuating lesion within segment 8 of the liver slightly increase in size, now measuring 3.4 cm, previously was measured 2.8 cm when measured in similar fashion. Gallbladder: Is contracted which limits evaluation. No definite pericholecystic edema is seen. Spleen: Normal in size and attenuation. Pancreas: Unremarkable. Adrenal glands: Unremarkable. Kidneys: No evidence of hydronephrosis or nephrolithiasis. Bilateral extrarenal pelvises are again seen. 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 Bilateral renal cysts are again seen, largest cyst is seen within inferior right renal cortex, measuring 3.8 cm in size and unchanged since recent prior study. Pelvic viscera: Urinary bladder is adequately distended with urine. Prostate gland is minimally enlarged. Bowel: Percutaneous gastrostomy tube is in stable position. Bowel loops are nondilated. Appendix shows normal morphology and gas filled. Mild diverticulosis of sigmoid colon is seen without evidence of diverticulitis. Peritoneum: There is no intraperitoneal free air or abdominal ascites. Vasculature: The abdominal aorta is normal in course and caliber. Adenopathy: Multiple retroperitoneal lymph nodes are seen, measuring less than 1 cm in short axis. Skeletal structures: There is focal sclerotic lesion within right iliac bone which was visualized during prior study. No definite new lesions are seen. Degenerative changes of the spine. Redemonstration of subcutaneous soft tissue nodule within right upper buttock, stable since prior. IMPRESSION: 1. Redemonstration of multiple hypoattenuating likely metastatic liver lesions with mild interval enlargement as detailed above. 2. No acute inflammatory intra-abdominal process is seen. Nondilated loops of bowel. 3. Contracted gallbladder which limits evaluation. 4. Redemonstration of horseshoe kidneys. Stable renal cysts. 5. Gastrostomy tube is in place. 6. Stable multiple retroperitoneal lymph nodes measuring less than 1 cm in short axis. 7. The rest of findings as above. ACT 112: Negative or not required by law. The above report was generated using voice recognition software. It may contain grammatical, syntax or spelling errors. Electronically signed by: Mariangel Duran DO 06/22/2021 12:11 PM Discharge Plan Visit Data Chief Complaint: Illness Stated Complaint: WEAKNESS, AMS ED Provider: Yvon Sol Discharge Problem: Weakness, Anemia, Acute dehydration, Vomiting Patient Disposition: Admitted As Inpatient Condition: Fair Forms Stand Alone Forms: [facility] [place] [employer] Prescriptions Prescriptions: No Action lactase [Lactaid] 3,000 unit tablet 3,000 unit PO TIDM PRN (Reason: .) RF: 0 aspirin [Ecotrin Low Strength] 81 mg Tablet,Delayed Release (Dr/Ec) 81 mg PO QAM Qty: 30 RF: 0 gabapentin [Neurontin] 300 mg Capsule 300 mg PO BID RF: 0 metoprolol succinate [Toprol XL] 25 mg tablet extended release 24 hr 25 mg PO QAM RF: 0 ondansetron 8 mg tablet,disintegrating 8 mg PO Q8H PRN (Reason: Nausea And Vomiting) RF: 0 lisinopril [Zestril] 5 mg tablet 2.5 mg PO HS RF: 0 mirtazapine [Remeron] 15 mg tablet 15 mg PO HS RF: 0 Ensure Liquid 5 ea feeding tube UD RF: 0 escitalopram oxalate [Lexapro] 20 mg tablet 20 mg PO QAM RF: 0 atorvastatin [Lipitor] 40 mg tablet 40 mg PO QAM RF: 0 metformin 500 mg tablet 500 mg PO BIDM RF: 0 omeprazole 20 mg Capsule,Delayed Release(Dr/Ec) 20 mg PO BID RF: 0 Referrals Referrals: Ramsey Lira MD [Primary Care Provider] -
--- NOTE | 2021-06-22 10:28 | CT Scan Report ---
CT head/brain wo con CLINICAL HISTORY: 70 years-old Male with weakness. Acute weakness TECHNIQUE: Multiple axial CT images of the head were obtained without contrast. A dose lowering tech nique was utilized adhering to the principles of ALARA. CT DOSE: 614.27 mGy.cm COMPARISON: Brain MRI 12/23/2018, head CT 12/22/2018 FINDINGS: No acute intracranial hemorrhage, midline shift, intracranial mass, hydrocephalus, territorial ischem ia or abnormal extra-axial collection. Age-related involutional changes. Encephalomalacia from chroni c right temporal occipital infarct. Chronic lacunar infarct of the right thalamus. The calvarium is intact. The paranasal sinuses, mastoid air cells, and middle ear cavities are clear . IMPRESSION: 1. No acute intracranial abnormality. 2. Chronic infarcts of the right temporal and occipital lobes. 3. Chronic lacunar infarct of the right thalamus. ACT 112: Negative or not required by law. The above report was generated using voice recognition software. It may contain grammatical, syntax o r spelling errors. Electronically signed by: Reji Acuña M.D. 06/22/2021 10:27 AM
[2021-06-22 10:33] LABS: Hematocrit (blood only) 23.5 % (42-52); Hemoglobin 7.2 g/dL (14.0-18.0); Mean Corpuscular Hemoglobin 25.1 pg (25-34); Mean Corpuscular Hgb Conc 30.6 g/dL (32-36); Mean Corpuscular Volume 81.9 fL (80-100); Mean Platelet Volume 9.9 fL (7.4-10.4); Platelet Count 372 K/uL (130-400); RDW Coefficient of Variation 15.3 % (11.5-14.5); RDW Standard Deviation 45.9 fL (36.4-46.3); Red Blood Count 2.87 M/uL (4.7-6.1); White Blood Count 8.36 K/uL (4.8-10.8)
[2021-06-22 10:43] LABS: Alanine Aminotransferase 55 U/L (12-78); Albumin Level 2.1 gm/dl (3.4-5.0); Aspartate Aminotransferase 138 U/L (15-37); Blood Urea Nitrogen 34 mg/dl (7-18); Calcium 8.6 mg/dl (8.5-10.1); Carbon Dioxide 25 mmol/L (21-32); Chloride 99 mmol/L (98-107); Creatinine Clr Calc Pharmacy 85.3 ml/min; Est GFR (Non-African American) 86.3 ml/min; Glucose 123 mg/dl (70-99); Potassium 4.6 mmol/L (3.5-5.1); Sodium 131 mmol/L (136-145)
[2021-06-22 10:54] LABS: Albumin Globulin Ratio 0.4 (0.9-2); Alkaline Phosphatase 259 U/L (45-117); Bilirubin,Total 0.4 mg/dl (0.2-1); Globulin 4.7 gm/dl (2.5-4.0); Total Protein 6.8 gm/dl (6.4-8.2); Troponin I < 0.015 ng/ml (0-0.045)
--- NOTE | 2021-06-22 11:02 | XRay Report ---
XR chest 1V portable HISTORY: 70 years-old Male weakness acute weakness COMPARISON: Chest radiograph 12/22/2018, chest CT 09/18/2020 TECHNIQUE: AP view of the chest FINDINGS: Cardiac mediastinal and hilar silhouettes are unchanged. Left IJ Uustxk-k-Efaz catheter distal tip te rminates within the region of the IJ brachiocephalic venous confluence. Loop recorder device present. No pneumothorax, pleural effusion, airspace consolidation or overt pulmonary edema. Degenerative iván nges of the shoulders and spine. IMPRESSION: No acute process. ACT 112: Negative or not required by law. The above report was generated using voice recognition software. It may contain grammatical, syntax o r spelling errors. Electronically signed by: Reji Acuña M.D. 06/22/2021 11:00 AM
[2021-06-22 11:06] LABS: Eosinophils # (auto) 0.01 K/uL (0-0.5); Eosinophils % (auto) 0.1 %; Immature Granulocytes # (auto) 0.05 K/uL (0.00-0.02); Immature Granulocytes % (auto) 0.6 %; Lymphocytes # (auto) 0.54 K/uL (1.2-3.4); Lymphocytes % (auto) 6.5 %; Monocytes # (auto) 0.44 K/uL (0.11-0.59); Monocytes % (auto) 5.3 %; Neutrophils # (auto) 7.32 K/uL (1.4-6.5); Neutrophils % (auto) 87.5 %; RBC Morphology Unremarkable
[2021-06-22 11:07] LABS: Appearance Urine Clear (Clear); Bacteria Urine Automated Negative (Negative); Bilirubin Urine Negative (Negative); Blood Urine Negative (Negative); Cast Urine Automated 0 /lpf (0-5); Color Urine Yellow; Glucose Urine UA Negative (Negative); Ketones Urine Negative (Negative); Leukocyte Esterase Urine Negative (Negative); Nitrite Urine Negative (Negative); Protein Urine 1+ (Negative); RBC Urine Automated 0-4 /hpf (0-4); Specific Gravity Urine 1.013 (1.000-1.030); Urobilinogen Urine Negative (Negative); pH Urine 5.5 (4.5-7.5)
--- NOTE | 2021-06-22 12:12 | CT Scan Report ---
CT abd pelvis IV con only CLINICAL HISTORY: nv, hist liver lesions COMPARISON STUDY: June 11, 2021 TECHNIQUE: A dose lowering technique was utilized adhering to the principles of ALARA. CT DOSE: 589.50 mGy.cm FINDINGS: Lower chest: Mild atelectasis is seen at dependent portions of bilateral lower lobes.. Liver: Evaluation of the liver again shows multiple hypoattenuating lesions within its parenchyma. La rgest lesion is measuring 6.0 cm in diameter and seen near liver dome, slightly enlarged since recent prior study in June 11, 2021 when it was measured 5.7 cm when measured in similar fashion. Hypoatten uating lesion within segment 8 of the liver slightly increase in size, now measuring 3.4 cm, previous ly was measured 2.8 cm when measured in similar fashion. Gallbladder: Is contracted which limits evaluation. No definite pericholecystic edema is seen. Spleen: Normal in size and attenuation. Pancreas: Unremarkable. Adrenal glands: Unremarkable. Kidneys: No evidence of hydronephrosis or nephrolithiasis. Bilateral extrarenal pelvises are again se en. 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 Bilateral renal cysts are again seen, l argest cyst is seen within inferior right renal cortex, measuring 3.8 cm in size and unchanged since recent prior study. Pelvic viscera: Urinary bladder is adequately distended with urine. Prostate gland is minimally enlar ged. Bowel: Percutaneous gastrostomy tube is in stable position. Bowel loops are nondilated. Appendix show s normal morphology and gas filled. Mild diverticulosis of sigmoid colon is seen without evidence of diverticulitis. Peritoneum: There is no intraperitoneal free air or abdominal ascites. Vasculature: The abdominal aorta is normal in course and caliber. Adenopathy: Multiple retroperitoneal lymph nodes are seen, measuring less than 1 cm in short axis. Skeletal structures: There is focal sclerotic lesion within right iliac bone which was visualized dur ing prior study. No definite new lesions are seen. Degenerative changes of the spine. Redemonstration of subcutaneous soft tissue nodule within right upper buttock, stable since prior. IMPRESSION: 1. Redemonstration of multiple hypoattenuating likely metastatic liver lesions with mild interval en largement as detailed above. 2. No acute inflammatory intra-abdominal process is seen. Nondilated loops of bowel. 3. Contracted gallbladder which limits evaluation. 4. Redemonstration of horseshoe kidneys. Stable renal cysts. 5. Gastrostomy tube is in place. 6. Stable multiple retroperitoneal lymph nodes measuring less than 1 cm in short axis. 7. The rest of findings as above. ACT 112: Negative or not required by law. The above report was generated using voice recognition software. It may contain grammatical, syntax o r spelling errors. Electronically signed by: Mariangel Duran DO 06/22/2021 12:11 PM
[2021-06-22] MEDS ORDERED: SODIUM CHLORIDE 0.9% 250 ML IV PRN (12:56)
--- NOTE | 2021-06-22 13:45 | History & Physical Report ---
Date of Service June 22, 2021 Assessment & Plan (1) Anemia: Plan: -Admit to [facility] with telemetry -Patient presenting from home with reports of generalized weakness, ambulatory dysfunction -Hgb 7.2; outpatient labs on 06/08 showed Hgb 8.4 (previous baseline ~ 11.0). Stool for fecal occult blood was negative. Iron level was found to be low and vitamin B12 level was on the low end of normal. Patient was started on iron and vitamin B12 replacement. -No obvious signs of bleeding, anemia likely multifactorial due to nutritional deficiency and possible underlying malignancy -Transfuse 1 unit PRBC -Follow H&H (2) Liver lesion: Plan: -Recent CT ABD/pelvis showed multiple liver lesions suggestive of malignancy -Scheduled for biopsy on 06/25 -Recently completed chemotherapy and radiation for squamous cell HPV of the tongue -Follows with Dr. Goodrich (3) Elevated LFTs: (4) Elevated lactic acid level: Plan: -Lactic acid 3.7 -> 2.3 -Likely due to dehydration from poor p.o. intake -No signs of infection -IVF, trend lactate (5) Weakness: Plan: -PT/OT -Possible need for placement (6) Sacral decubitus ulcer, stage II: Plan: -Present on admission -Wound care consult (7) Failure to thrive: Plan: -Patient reports extremely poor appetite -PEG tube remains in place from recent radiation and chemo treatments -Continue tube feedings (8) Diabetes mellitus, type 2: Plan: -Hgb A1c 6.4 01/2021 -Hold oral agents and utilize NovoLog per protocol while hospitalized (9) History of CVA (cerebrovascular accident): Plan: -Continue aspirin and statin (10) DVT prophylaxis: Plan: -SCDs due to anemia History of Present Illness Chief Complaint: Weakness Primary Care Provider: Mary Lira MD 70-year-old male with PMH DM type II, hypertrophic cardiomyopathy, paroxysmal atrial tachycardia with loop recorder in place, HTN, history of CVA with left hemiparesis, 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 Patient completed chemotherapy and radiation therapy 03/2021. Since completing treatment, he was reporting increasing generalized weakness and very poor appetite. Outpatient labs were obtained that showed elevated LFTs which prompted CT scan of the abdomen that showed numerous hepatic lesions highly suggestive of hepatic metastases. Labs on 06/08 showed Hgb 8.4 (previous baseline ~ 11.0). Stool for fecal occult blood was negative. Iron level was found to be low and vitamin B12 level was on the low end of normal. Patient was started on iron and vitamin B12 replacement. Patient sister is the bedside who provides some history. She reports over the past few days, patient's weakness has been getting progressively worse. Patient is barely able to ambulate with his walker. This morning while in the shower, patient reports he slipped and fell. He reports he did strike his head however no loss of consciousness. Patient's sister, caregiver, and girlfriend were all at the house and had difficulty getting the patient up off the floor. Patient was brought to the ED for further evaluation. Patient reports an extremely poor appetite. He continues to receive tube feeds. He has some vomiting at times. Denies hematemesis or coffee-ground emesis. Reports chronic diarrhea which is unchanged from baseline. No bright lamp rectum or dark tarry stools. Denies any other recent illnesses, fevers, chills. No chest pain or shortness of breath. Denies lightheadedness, dizziness, diaphoresis, syncopal events. No urinary symptoms. In the ED, labs show Hgb 7.2, Na+ 131, lactate 3.7, AST 138, alk phos 259. Infectious work-up unremarkable. Patient is hemodynamically stable. He received IVF and IV Zofran. Allergies Allergy/AdvReac Type Severity Reaction Status Date / Time No Known Allergies Allergy Verified 06/22/21 10:41 Home Medications Medication Instructions Recorded Confirmed Type aspirin 81 mg tablet,delayed 81 mg PO QAM #30 tab 12/28/18 06/22/21 Rx release (Ecotrin Low Strength) gabapentin 300 mg capsule 300 mg PO BID 03/29/19 06/22/21 History (Neurontin) metoprolol succinate 25 mg 25 mg PO QAM 03/29/19 06/22/21 History tablet,extended release 24 hr (Toprol XL) omeprazole 20 mg capsule,delayed 20 mg PO BID 02/04/21 06/22/21 History release lactase 3,000 unit tablet (Lactaid) 3,000 unit PO TIDM PRN tab 02/18/21 06/22/21 History atorvastatin 40 mg tablet (Lipitor) 40 mg PO QAM 06/22/21 06/22/21 History cyanocobalamin (vitamin B-12) 1,000 mcg PO DAILY 06/22/21 06/22/21 History 1,000 mcg tablet escitalopram oxalate 20 mg tablet 20 mg PO QAM 06/22/21 06/22/21 History (Lexapro) ferrous sulfate 325 mg (65 mg 325 mg PO DAILY 06/22/21 06/22/21 History iron) tablet food supplemt, lactose-reduced 5 ea FEEDING TUBE UD 06/22/21 06/22/21 History (Ensure) lisinopril 5 mg tablet (Zestril) 2.5 mg PO HS 06/22/21 06/22/21 History metformin 500 mg tablet 500 mg PO BIDM 06/22/21 06/22/21 History mirtazapine 15 mg tablet (Remeron) 15 mg PO HS 06/22/21 06/22/21 History ondansetron 8 mg disintegrating 8 mg PO Q8H PRN 06/22/21 06/22/21 History tablet Past Med/Surg History Medical History Acute CVA (cerebrovascular accident) (12/22/18) due to embolism of right posterior cerebral artery - residual short term memory loss/left sided weakness (andria walker), follows with neurology (Dr. Robles) Anxiety Chronic back pain Diabetes mellitus, type 2 NIDDM GERD (gastroesophageal reflux disease) History of colon polyps History of CVA (cerebrovascular accident) Hyperlipidemia Hypertension Hypertrophic cardiomyopathy No LVOT obstruction per 12/2020 echo Paroxysmal supraventricular tachycardia + loop recorder Port-A-Cath in place Left Short-term memory loss due to stroke Squamous cell carcinoma of base of tongue Surgical History H/O tooth extraction several History of arthroscopy of right knee meniscus repair History of colonoscopy with polypectomy (2019) History of excision of pilonidal cyst History of lymph node biopsy (12/18/20) History of tonsillectomy and adenoidectomy as a child History of vasectomy S/P percutaneous endoscopic gastrostomy (PEG) tube placement (02/15/21) Status post placement of implantable loop recorder currently in place Family History Father , Passed age 83 of multiple comorbidities T2DM (type 2 diabetes mellitus) Coronary heart disease Multiple complications of type 2 diabetes mellitus Family history of diabetes mellitus Mother , Passed age 96 of natural causes T2DM (type 2 diabetes mellitus) Family history of diabetes mellitus Melanoma in Eye - Removal of Eye Sister Family history of diabetes mellitus Grandfather (Maternal) Family history of diabetes mellitus Grandfather (Paternal) Family history of diabetes mellitus Throat cancer, Onset Age: 84 Grandmother (Paternal) Family history of diabetes mellitus Grandmother (Maternal) Family history of diabetes mellitus Sister No problems noted. Sister No problems noted. Son No problems noted. Son No problems noted. Daughter No problems noted. Other No family history of adverse response to anesthesia Social History Smoking Status: Former smoker Tobacco Type: Cigarettes packs per day: 0.25; Years Smoked: 5; Smoking End Date: approx. 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 Other Information That Helps Us Care for You: No Feels Safe at Home: Yes Safety Concerns: Feels Safe At This Time Childhood Exposure to Second-Hand Smoke: No Diet Comment: PEG - Bolus feedings q 3 hrs x 5 caffeine: No during the past year weight has: remained stable Dental Care, Regularly: No Assistive Devices: None Review of Systems Review of Systems: ROS per HPI, all other systems reviewed and negative Physical Exam Constitutional: WD/WN, vitals as above + ill appearing (Chronically) Eyes: PERRL, conjunctivae normal, anicteric sclerae ENMT: Ears: no external ear abnormality Nose: no external nose abnormality Mouth: + dry oral mucous membranes Respiratory: normal respiratory effort, lungs clear to auscultation Cardiovascular: Rate/Rhythm: regular rate and regular rhythm Vessels: normal peripheral pulses Extremities: no edema Gastrointestinal (Abdomen): normal bowel sounds, soft, nontender, no hepatosplenomegaly PEG tube in place, no surrounding erythema or drainage Musculoskeletal: Extremities: no cyanosis and no clubbing Left hemiparesis Skin: no rashes, warm and dry Small stage II sacral decubitus ulcer Neurologic: PERRL, EOMI, accommodation nl, no face palsy, no dysarthria Psychiatric: A+Ox3, euthymic affect Results & Data Results & Data ([facility]) Vital Signs (Past 12 Hours) Vital Signs Temp Pulse Pulse Resp BP BP Pulse Ox 06/22/21 13:00 74 18 102/65 95 06/22/21 11:32 78 18 101/58 L 97 06/22/21 09:43 94 06/22/21 09:32 37.4 C 80 18 104/61 94 Laboratory Results Short CBC 06/22/21 Range/Units 10:01 WBC 8.36 (4.8-10.8) K/uL Hgb 7.2 L (14.0-18.0) g/dL Hct 23.5 L (42-52) % Plt Count 372 (130-400) K/uL BMP 06/22/21 10:01 Sodium 131 L Potassium 4.6 Chloride 99 Carbon Dioxide 25 BUN 34 H Creatinine 0.91 Glucose 123 H Calcium 8.6 Cardiac Enzymes 06/22/21 Range/Units 10:01 Troponin I < 0.015 (0-0.045) ng/ml Liver Function 06/22/21 Range/Units 10:01 Total Bilirubin 0.4 (0.2-1) mg/dl AST 138 H (15-37) U/L ALT 55 (12-78) U/L Alkaline Phosphatase 259 H (45-117) U/L Albumin 2.1 L (3.4-5.0) gm/dl Urine 06/22/21 Range/Units 10:51 Urine Color Yellow Urine Appearance Clear (Clear) Urine pH 5.5 (4.5-7.5) Ur Specific [place] 1.013 (1.000-1.030) Urine Protein 1+ H (Negative) Urine Glucose (UA) Negative (Negative) Diagnostic Findings Chest X-Ray 06/22/21 09:38 XR chest 1V portable HISTORY: 70 years-old Male weakness acute weakness COMPARISON: Chest radiograph 12/22/2018, chest CT 09/18/2020 TECHNIQUE: AP view of the chest FINDINGS: Cardiac mediastinal and hilar silhouettes are unchanged. Left IJ Nptsoi-o-Vodp catheter distal tip terminates within the region of the IJ brachiocephalic venous confluence. Loop recorder device present. No pneumothorax, pleural effusion, airspace consolidation or overt pulmonary edema. Degenerative changes of the shoulders and spine. IMPRESSION: No acute process. ACT 112: Negative or not required by law. The above report was generated using voice recognition software. It may contain grammatical, syntax or spelling errors. Electronically signed by: Reji Acuña M.D. 06/22/2021 11:[address] 06/22/21 09:38 CT head/brain wo con CLINICAL HISTORY: 70 years-old Male with weakness. Acute weakness TECHNIQUE: Multiple axial CT images of the head were obtained without contrast. A dose lowering technique was utilized adhering to the principles of ALARA. CT DOSE: 614.27 mGy.cm COMPARISON: Brain MRI 12/23/2018, head CT 12/22/2018 FINDINGS: No acute intracranial hemorrhage, midline shift, intracranial mass, hydrocephalus, territorial ischemia or abnormal extra-axial collection. Age- related involutional changes. Encephalomalacia from chronic right temporal occipital infarct. Chronic lacunar infarct of the right thalamus. The calvarium is intact. The paranasal sinuses, mastoid air cells, and middle ear cavities are clear. IMPRESSION: 1. No acute intracranial abnormality. 2. Chronic infarcts of the right temporal and occipital lobes. 3. Chronic lacunar infarct of the right thalamus. ACT 112: Negative or not required by law. The above report was generated using voice recognition software. It may contain grammatical, syntax or spelling errors. Electronically signed by: Reji Acuña M.D. 06/22/2021 10:27 AM Abdomen/Pelvis CT 06/22/21 11:02 CT abd pelvis IV con only CLINICAL HISTORY: nv, hist liver lesions COMPARISON STUDY: June 11, 2021 TECHNIQUE: A dose lowering technique was utilized adhering to the principles of ALARA. CT DOSE: 589.50 mGy.cm FINDINGS: Lower chest: Mild atelectasis is seen at dependent portions of bilateral lower lobes.. Liver: Evaluation of the liver again shows multiple hypoattenuating lesions within its parenchyma. Largest lesion is measuring 6.0 cm in diameter and seen near liver dome, slightly enlarged since recent prior study in June 11, 2021 when it was measured 5.7 cm when measured in similar fashion. Hypoattenuating lesion within segment 8 of the liver slightly increase in size, now measuring 3.4 cm, previously was measured 2.8 cm when measured in similar fashion. Gallbladder: Is contracted which limits evaluation. No definite pericholecystic edema is seen. Spleen: Normal in size and attenuation. Pancreas: Unremarkable. Adrenal glands: Unremarkable. Kidneys: No evidence of hydronephrosis or nephrolithiasis. Bilateral extrarenal pelvises are again seen. 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 Bilateral renal cysts are again seen, largest cyst is seen within inferior right renal cortex, measuring 3.8 cm in size and unchanged since recent prior study. Pelvic viscera: Urinary bladder is adequately distended with urine. Prostate gland is minimally enlarged. Bowel: Percutaneous gastrostomy tube is in stable position. Bowel loops are nondilated. Appendix shows normal morphology and gas filled. Mild diverticulosis of sigmoid colon is seen without evidence of diverticulitis. Peritoneum: There is no intraperitoneal free air or abdominal ascites. Vasculature: The abdominal aorta is normal in course and caliber. Adenopathy: Multiple retroperitoneal lymph nodes are seen, measuring less than 1 cm in short axis. Skeletal structures: There is focal sclerotic lesion within right iliac bone which was visualized during prior study. No definite new lesions are seen. Degenerative changes of the spine. Redemonstration of subcutaneous soft tissue nodule within right upper buttock, stable since prior. IMPRESSION: 1. Redemonstration of multiple hypoattenuating likely metastatic liver lesions with mild interval enlargement as detailed above. 2. No acute inflammatory intra-abdominal process is seen. Nondilated loops of bowel. 3. Contracted gallbladder which limits evaluation. 4. Redemonstration of horseshoe kidneys. Stable renal cysts. 5. Gastrostomy tube is in place. 6. Stable multiple retroperitoneal lymph nodes measuring less than 1 cm in short axis. 7. The rest of findings as above. ACT 112: Negative or not required by law. The above report was generated using voice recognition software. It may contain grammatical, syntax or spelling errors. Electronically signed by: Mariangel Duran DO 06/22/2021 12:11 PM Code Status & VTE Plan Code Status Patient is a full code without intubation as per my discussion with him. VTE Prophylaxis Plan VTE Prophylaxis will be ordered: Yes Supervising Physician Co-Signing Physician Notes attending addendum: pt seen and examined care co-ordinated with Tierney SCHUMACHER 70 yo Male with hx of sq cell ca of tounge , s/p chemo and radiation tx recent scan shows advanced metastatic lesions to liver -finding was discussed with pt and his sister Kelly ( POA ) Hematology /oncology Dr Goodrich -pt's prognosis is grim , no other chemo option available CT guided biopsy was offered to confirm the metastatic lesions admitted with profound weakness , fall , deconditioning found to be dehydrated with symptomatic anemia received 1 unit of PRBC in ER pt already been followed with [facility] Palliative care in [facility] . 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
[2021-06-22] MEDS ORDERED: GLUCOSE 40% GEL 15 GM TUBE PO PRN (14:11)
[2021-06-22] MEDS ORDERED: GLUCAGON FOR INJ 1 MG VIAL SQ PRN (14:11)
[2021-06-22] MEDS ORDERED: GLUCOSE 10 TABS/TUBE PO PRN (14:11)
[2021-06-22] MEDS ORDERED: DEXTROSE 50% 50 ML SYRINGE IV PRN (14:11)
[2021-06-22] MEDS ORDERED: CARBOHYDRATES FOR HYPOGLYCEMIA PO PRN (14:11)
[2021-06-22] MEDS ORDERED: SODIUM CHLORIDE 0.9% 1000ML 1,000 ML IV SCH (14:15)
--- NOTE | 2021-06-22 15:46 | Communication Note ---
Date of Service: June 22, 2021 attending addendum: pt seen and examined care co-ordinated with Tierney SCHUMACHER 70 yo Male with hx of sq cell ca of tounge , s/p chemo and radiation tx recent scan shows advanced metastatic lesions to liver -finding was discussed with pt and his sister Kelly ( POA ) Hematology /oncology Dr Goodrich -pt's prognosis is grim , no other chemo option available CT guided biopsy was offered to confirm the metastatic lesions admitted with profound weakness , fall , deconditioning found to be dehydrated with symptomatic anemia received 1 unit of PRBC in ER pt already been followed with [facility] Palliative care in [facility] . Physical exam : brief: chronically ill appearing male , awake and alert ,denies of any pain or discomf ort asks to remove the peripheral sites ( getting IV fluids) HEENT: has radiation skin changes on neck lungs ; diminishes breath sound abdomen : non tender neuro ; no focal deficit please refer detail physical exam done by Tierney SCHUMACHER Metastatic sq cell Ca of base of tongue : very aggressive ca -widespread liver mets after completing chemo/rad no further treatment option available as per Heme onc prognosis grim after discussion with pt /his significant other /sister (POA) -opted not to have CT guided biopsy of liver - wants to peruse hospice care palliative care consulted pt is currently significantly deconditioned -PT/OT eval requested , anemia : due to metastatic malignancy PRBC transfusion ordered palliative care consulted Mei Segundo MD
--- NOTE | 2021-06-22 19:24 | Electrocardiogram Report ---
Test Reason : Blood Pressure : / mmHG Vent. Rate : 082 BPM Atrial Rate : 082 BPM P-R Int : 190 ms QRS Dur : 054 ms QT Int : 372 ms P-R-T Axes : 022 006 030 degrees QTc Int : 434 ms Poor data quality, interpretation may be adversely affected Normal sinus rhythm Low voltage QRS Borderline ECG When compared with ECG of 23-OCT-2019 20:03, Premature supraventricular complexes are no longer Present NV interval has decreased Confirmed by Fran Cabrera ([id number]) on 06/22/2021 7:24:16 PM Referred By: ED Confirmed By:Fran Cabrera
[2021-06-22] MEDS: INSULIN ASPART 100 UNITS/ML 3 ML PEN SC SCH ×2 (19:59→23:28)
[2021-06-22] MEDS: FIBERSOURCE HN 1.2 CAL 1000 ML BAG GT SCH (20:32)
[2021-06-22] MEDS: TUBE FEEDING WATER FLUSH GT SCH ×2 (20:35→22:25)
[2021-06-22 20:53] LABS: Hematocrit (blood only) 26.8 % (42-52); Hemoglobin 8.3 g/dL (14.0-18.0)
[2021-06-22] MEDS ORDERED: lisinopril 2.5 MG TAB PO SCH (21:00)
[2021-06-22] MEDS: PROSOURCE NO CARB 30 ML/PKT GT SCH (22:20)
[2021-06-22] MEDS: GABAPENTIN 300 MG CAP PO SCH (22:20)
[2021-06-22] MEDS: MIRTAZAPINE TAB 15 MG TAB PO SCH (22:21)
[2021-06-22] MEDS: PANTOprazole 40 MG TAB PO SCH (22:21)
[2021-06-23] MEDS: TUBE FEEDING WATER FLUSH GT SCH ×6 (02:00→21:19)
[2021-06-23] MEDS: ACETAMINOPHEN 325 MG TAB PO PRN ×2 (04:16→12:55)
[2021-06-23] MEDS ORDERED: PIPERACILL/TAZOBAC CONSULT ACTIVE PRN (05:32)
--- NOTE | 2021-06-23 05:33 | Hospitalist Progress Note ---
Date of Service June 23, 2021 Assessment & Plan Admission and Anticipated Discharge Date Admission Date: June 22, 2021 Subjective Had temp spike last night. blood cultures pending. empirically started on iv zosyn. Thanks Results & Data Results & Data ([facility]) Vital Signs (Past 12 Hours) Vital Signs Temp Pulse Pulse Pulse Resp BP BP 06/23/21 05:24 37.1 C 06/23/21 04:00 39.1 C H 84 20 135/76 06/23/21 00:00 79 06/22/21 23:00 36.9 C 76 20 123/69 06/22/21 20:00 80 06/22/21 19:00 37.8 C H 79 20 129/77 06/22/21 18:44 36.9 C 81 18 137/78 Pulse Ox 06/23/21 05:24 06/23/21 04:00 92 06/23/21 00:00 06/22/21 23:00 92 06/22/21 20:00 06/22/21 19:00 94 06/22/21 18:44 95
[2021-06-23] MEDS ORDERED: PIPERACILLIN/TAZOBACTAM 3.375 GM in DEXTROSE 5% 100 ML IV ONE (05:45)
[2021-06-23 07:40] LABS: Hematocrit (blood only) 25.2 % (42-52); Hemoglobin 7.9 g/dL (14.0-18.0); Mean Corpuscular Hemoglobin 25.5 pg (25-34); Mean Corpuscular Hgb Conc 31.3 g/dL (32-36); Mean Corpuscular Volume 81.3 fL (80-100); Mean Platelet Volume 9.5 fL (7.4-10.4); Platelet Count 286 K/uL (130-400); RDW Coefficient of Variation 15.2 % (11.5-14.5); RDW Standard Deviation 45.1 fL (36.4-46.3); White Blood Count 6.04 K/uL (4.8-10.8)
[2021-06-23] MEDS: INSULIN ASPART 100 UNITS/ML 3 ML PEN SC SCH ×4 (08:15→20:10)
[2021-06-23 08:16] LABS: BUN Creatinine Ratio 34.6 (10-20); Calcium 8.9 mg/dl (8.5-10.1); Creatinine Clr Calc Pharmacy 109.3 ml/min; Est GFR (African American) 111.7 ml/min; Est GFR (Non-African American) 96.4 ml/min; Potassium 3.9 mmol/L (3.5-5.1)
[2021-06-23] MEDS: PANTOprazole 40 MG TAB PO SCH ×2 (08:16→20:09)
[2021-06-23] MEDS: GABAPENTIN 300 MG CAP PO SCH ×2 (08:17→20:09)
[2021-06-23] MEDS: FERROUS SULFATE 325 MG TAB PO SCH (08:17)
[2021-06-23] MEDS: CYANOCOBALAMIN 500 MCG TABLET (VITAMIN B-12) PO SCH (08:17)
[2021-06-23] MEDS: METOPROLOL SUCC 25MG EXT REL TAB PO SCH (08:17)
[2021-06-23] MEDS: ESCITALOPRAM OXALATE 20 MG TAB PO SCH (08:17)
[2021-06-23] MEDS ORDERED: ASPIRIN 81 MG ECTAB PO SCH (09:00)
[2021-06-23] MEDS ORDERED: ATORVASTATIN 40 MG TAB PO SCH (09:00)
[2021-06-23] MEDS: [UNRECOGNIZED DRUG - REMARK] SCH (11:00)
[2021-06-23] MEDS: PIPERACILLIN/TAZOBACTAM 3.375 GM in DEXTROSE 5% 100 ML IV SCH ×2 (11:01→18:32)
--- NOTE | 2021-06-23 16:45 | Palliative Care Consultation ---
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 (2) Palliative care encounter: I met with Mr. Hahn and his significant other at bedside. He has had significant functional decline and requires extensive care. She has Parkinson's disease and is not able to manage his care at home. They are interested in SNF. He would want to pursue rehab with the hope that he would be able to get strong enough to walk around and be more independent. Ultimately, he would like to be able to return home. He understands that this liver mass appears to be metastatic and very aggressive given the extensive growth over the last few months. He is not interested in further treatment and with his poor functional status would not likely tolerate further treatment. Is goal is to live as comfortably and well as he can for his remaining days. His hope was to go to [facility] which is closest to his home and he's been there before for rehab after his CVA. Unfortunately, they are not currently accepting patients. Plan will be for transfer to available SNF for rehab and transition to hospice. On admission his code status was conditional with no intubation but with CPR. We discussed this and he is quite clear that he would want his dying time to be peaceful with no aggressive interventions. "When it's my time to go, I'll go". Code status changed to DNR to reflect this. Palliative care will follow as needed during his stay. (3) Diabetes mellitus, type 2: (4) Squamous cell carcinoma of base of tongue: (5) History of CVA (cerebrovascular accident): History of Present Illness Reason for Consultation: Goals of care Requesting Physician: ENDY Lindsey Attending Physician: Sarahi Hough MD History of Present Illness 70 yo gentleman with diabetes, hypertrophic cardiomyopathy, afib and previous CVA. He was diagnosed with squamous cell carcinoma of the tongue in December of this year. He has completed chemo and radiation therapy but his significant other reports that he never really bounced back after treatment and has had generalized weakness and poor appetite. He had a fall in the shower at home. On admission, he is noted to have a 6cm lesion in his liver with other smaller lesions and has had elevated liver enzymes. This was not present on his CT in December and is even slightly larger than it was on a previous CT in April. He had been able to ambulate with a walker at home but is now unable to transfer without assistance. He has a serum albumin of 2.1 on admission labs. We have been consulted to assist with goals of care. Allergies Allergy/AdvReac Type Severity Reaction Status Date / Time No Known Allergies Allergy Verified 06/22/21 10:41 Home Medications Medication Instructions Recorded Confirmed Type aspirin 81 mg tablet,delayed 81 mg PO QAM #30 tab 12/28/18 06/22/21 Rx release (Ecotrin Low Strength) gabapentin 300 mg capsule 300 mg PO BID 03/29/19 06/22/21 History (Neurontin) metoprolol succinate 25 mg 25 mg PO QAM 03/29/19 06/22/21 History tablet,extended release 24 hr (Toprol XL) omeprazole 20 mg capsule,delayed 20 mg PO BID 02/04/21 06/22/21 History release lactase 3,000 unit tablet (Lactaid) 3,000 unit PO TIDM PRN tab 02/18/21 06/22/21 History atorvastatin 40 mg tablet (Lipitor) 40 mg PO QAM 06/22/21 06/22/21 History cyanocobalamin (vitamin B-12) 1,000 mcg PO DAILY 06/22/21 06/22/21 History 1,000 mcg tablet escitalopram oxalate 20 mg tablet 20 mg PO QAM 06/22/21 06/22/21 History (Lexapro) ferrous sulfate 325 mg (65 mg 325 mg PO DAILY 06/22/21 06/22/21 History iron) tablet food supplemt, lactose-reduced 5 ea FEEDING TUBE UD 06/22/21 06/22/21 History (Ensure) lisinopril 5 mg tablet (Zestril) 2.5 mg PO HS 06/22/21 06/22/21 History metformin 500 mg tablet 500 mg PO BIDM 06/22/21 06/22/21 History mirtazapine 15 mg tablet (Remeron) 15 mg PO HS 06/22/21 06/22/21 History ondansetron 8 mg disintegrating 8 mg PO Q8H PRN 06/22/21 06/22/21 History tablet Patient History Medical History Acute CVA (cerebrovascular accident) (12/22/18) due to embolism of right posterior cerebral artery - residual short term memory loss/left sided weakness (uses walker), follows with neurology (Dr. Robles) Anxiety Chronic back pain Diabetes mellitus, type 2 NIDDM GERD (gastroesophageal reflux disease) History of colon polyps History of CVA (cerebrovascular accident) Hyperlipidemia Hypertension Hypertrophic cardiomyopathy No LVOT obstruction per 12/2020 echo Paroxysmal supraventricular tachycardia + loop recorder Port-A-Cath in place Left Short-term memory loss due to stroke Squamous cell carcinoma of base of tongue Surgical History H/O tooth extraction several History of arthroscopy of right knee meniscus repair History of colonoscopy with polypectomy (2019) History of excision of pilonidal cyst History of lymph node biopsy (12/18/20) History of tonsillectomy and adenoidectomy as a child History of vasectomy S/P percutaneous endoscopic gastrostomy (PEG) tube placement (02/15/21) Status post placement of implantable loop recorder currently in place Family History Father , Passed age 83 of multiple comorbidities T2DM (type 2 diabetes mellitus) Coronary heart disease Multiple complications of type 2 diabetes mellitus Family history of diabetes mellitus Mother , Passed age 96 of natural causes T2DM (type 2 diabetes mellitus) Family history of diabetes mellitus Melanoma in Eye - Removal of Eye Sister Family history of diabetes mellitus Grandfather (Maternal) Family history of diabetes mellitus Grandfather (Paternal) Family history of diabetes mellitus Throat cancer, Onset Age: 84 Grandmother (Paternal) Family history of diabetes mellitus Grandmother (Maternal) Family history of diabetes mellitus Sister No problems noted. Sister No problems noted. Son No problems noted. Son No problems noted. Daughter No problems noted. Other No family history of adverse response to anesthesia Social History Smoking Status: Former smoker Tobacco Type: Cigarettes packs per day: 0.25; Years Smoked: 5; Smoking End Date: approx. 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 Other Information That Helps Us Care for You: No Feels Safe at Home: Yes Safety Concerns: Feels Safe At This Time Childhood Exposure to Second-Hand Smoke: No Diet Comment: PEG - Bolus feedings q 3 hrs x 5 caffeine: No during the past year weight has: remained stable Dental Care, Regularly: No Assistive Devices: Walker Review of Systems Review of Systems: [place] Symptom Assessment Scale Pain 0/3 Dyspnea 0/3 Fatigue 2/3 Nausea 0/3 Drowsiness 1/3 Palliative Performance Score 40% Physical Exam Constitutional: no acute distress Respiratory: normal respiratory effort; no labored breathing Neurologic: moves all extremities and awake; not confused Psychiatric: Orientation: oriented x 3 Results & Data ([facility]) Vital Signs (Past 12 Hours) Vital Signs Temp Pulse Pulse Resp BP BP Pulse Ox 06/23/21 15:45 97.5 F L 59 L 20 127/48 L 93 06/23/21 15:11 77 06/23/21 11:57 98.8 F 71 20 123/73 96 06/23/21 08:02 98.2 F 70 20 105/60 92 06/23/21 07:17 82 06/23/21 05:24 98.8 F PG Care Time/CCT Total # of Minutes Spent Total Time Spent: 70 Total Time Spent with Patient: Total time spent is greater than 50% in coordination of care (as documented) at patient's floor/unit and/or counseling patient prognosis, goals of care, code status, hospice Coding Level of Care Code 89724 Initial Inpt Care Lvl 3 Diagnoses Failure to thrive Palliative care encounter Z51.5 Diabetes mellitus, type 2 E11.9 Squamous cell carcinoma of base of tongue C01 History of CVA (cerebrovascular accident) Z86.73
--- NOTE | 2021-06-23 18:14 | Hospitalist Progress Note ---
Date of Service June 23, 2021 Assessment & Plan (1) Liver lesion: (2) Sacral decubitus ulcer, stage II: (3) Weakness: Plan: IMAGIN/27 CXR: no acute process 06/22 CT Head: 1. No acute intracranial abnormality. 2. Chronic infarcts of the right temporal and occipital lobes. 3. Chronic lacunar infarct of the right thalamus. 06/22 CTAP: 1. Redemonstration of multiple hypoattenuating likely metastatic liver lesions with mild interval enlargement as detailed above. 2. No acute inflammatory intra-abdominal process is seen. Nondilated loops of bowel. 3. Contracted gallbladder which limits evaluation. 4. Redemonstration of horseshoe kidneys. Stable renal cysts. 5. Gastrostomy tube is in place. 6. Stable multiple retroperitoneal lymph nodes measuring less than 1 cm in short axis. 7. The rest of findings as above. ASSESSMENT AND PLAN: Pt presented 06/23 with complaints of generalized weakness, ambulatory dysfunction. He is being managed in the floor for the followin. Fever Pt had a spike of fever 39.1C on 06/23 early AM, started on Zosyn, awaiting Bl culture. source unknown at present. WBC 6.04K today will send procal in the first sample collected this admission Pt denies cough, belly pain. Will send Deep wound culture. F/u on the result 2. Hyponatremia mild, Na at 134, improving from 131 yesterday, f/u BMP tomorrow. (3) Anemia: Hb at presentation 7.2; outpatient labs on 06/08 showed Hgb 8.4 (previous baseline ~ 11.0). Stool for fecal occult blood was negative. Iron level was found to be low and vitamin B12 level was on the low end of normal. Patient was started on iron and vitamin B12 replacement. No obvious signs of bleeding, anemia likely multifactorial due to nutritional deficiency and possible underlying malignancy S/p 1 unit leucoreduced blood 06/22 Hemoglobin 7.9 today, continue to monitor daily hemoglobin. Transfuse for hemoglobin less than 7. (4) Liver lesion: CT abdomen pelvis: See above Scheduled for biopsy 06/[address] 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 Continue to monitor (5) Elevated LFTs: (5) Elevated lactic acid level: Lactate normal. Mild elevation in AST and ALP noted. Bilirubin level normal. Continue to monitor (6) Weakness: -PT/OT recommending inpatient rehab. -PEG tube in place from recent radiation and chemo treatments -Continue tube feedings (7) Sacral decubitus ulcer, stage II: -Present on admission -Wound care consult (8) Diabetes mellitus, type 2: -Hgb A1c 6.4 01/2021 -continue to Hold oral agents and utilize NovoLog per protocol while hosp italized (9) History of CVA (cerebrovascular accident): -Continue aspirin and statin (10) DVT prophylaxis: -SCDs + subcu lovenox Admission and Anticipated Discharge Date Admission Date: June 23, 2021 Subjective Patient was lying down in bed, NAD, on RA. Patient denies Headache, Dizziness, Fever today, Chills, Sore throat, Cough, Chest pain, palpitations, SOB, Belly pain. Last Bowel movement [yesterday]. No issues overnight. Feels tired. Urinary catheter in situ with yellow urine collection. Physical Exam Physical Exam: GENERAL: Alert and oriented x3. NAD, on RA. HEENT: No pallor, no icterus. Pupils equal, round and reactive to light. Oral mucosa moist. NECK: No JVD, no neck masses. HEART: S1 and S2 heard. Regular rate and rhythm. No murmur, no gallop. RESPIRATORY SYSTEM: Normal AP diameter. No accessory muscle use. No wheezing, no crackles. ABDOMEN: Soft, bowel sounds present, nontender, no distention. CENTRAL NERVOUS SYSTEM: Alert and oriented x3. No facial droop. Speech is clear. Obeys simple commands. Moves extremities. EXTREMITIES: No edema, no erythema seen. Results & Data Results & Data ([facility]) Vital Signs (Past 12 Hours) Vital Signs Temp Pulse Pulse Resp BP BP Pulse Ox 06/23/21 15:45 36.4 C L 59 L 20 127/48 L 93 06/23/21 15:11 77 06/23/21 11:57 37.1 C 71 20 123/73 96 06/23/21 08:02 36.8 C 70 20 105/60 92 06/23/21 07:17 82
[2021-06-23] MEDS: PROSOURCE NO CARB 30 ML/PKT GT SCH (20:08)
[2021-06-23] MEDS: FIBERSOURCE HN 1.2 CAL 1000 ML BAG GT SCH (20:08)
[2021-06-23] MEDS: MIRTAZAPINE TAB 15 MG TAB PO SCH (20:09)
[2021-06-24] MEDS: TUBE FEEDING WATER FLUSH GT SCH ×6 (01:36→21:33)
[2021-06-24] MEDS: PIPERACILLIN/TAZOBACTAM 3.375 GM in DEXTROSE 5% 100 ML IV SCH ×3 (03:17→18:01)
[2021-06-24] MEDS: ENOXAPARIN INJ 30 MG/0.3 ML SYR SQ SCH (08:14)
[2021-06-24] MEDS: ESCITALOPRAM OXALATE 20 MG TAB PO SCH (08:14)
[2021-06-24] MEDS: CYANOCOBALAMIN 500 MCG TABLET (VITAMIN B-12) PO SCH (08:14)
[2021-06-24] MEDS: FERROUS SULFATE 325 MG TAB PO SCH (08:14)
[2021-06-24] MEDS: INSULIN ASPART 100 UNITS/ML 3 ML PEN SC SCH ×4 (08:15→21:09)
[2021-06-24] MEDS: METOPROLOL SUCC 25MG EXT REL TAB PO SCH (08:15)
[2021-06-24] MEDS: PANTOprazole 40 MG TAB PO SCH ×2 (08:15→20:40)
[2021-06-24] MEDS: GABAPENTIN 300 MG CAP PO SCH ×2 (08:15→20:40)
[2021-06-24 08:44] LABS: Hematocrit (blood only) 26.3 % (42-52); Hemoglobin 8.2 g/dL (14.0-18.0); Mean Corpuscular Hemoglobin 25.3 pg (25-34); Mean Corpuscular Hgb Conc 31.2 g/dL (32-36); Mean Corpuscular Volume 81.2 fL (80-100); Mean Platelet Volume 9.6 fL (7.4-10.4); Platelet Count 285 K/uL (130-400); RDW Coefficient of Variation 15.5 % (11.5-14.5); RDW Standard Deviation 46.6 fL (36.4-46.3); Red Blood Count 3.24 M/uL (4.7-6.1); White Blood Count 5.16 K/uL (4.8-10.8)
[2021-06-24 09:21] LABS: BUN Creatinine Ratio 29.1 (10-20); Calcium 8.7 mg/dl (8.5-10.1); Creatinine Clr Calc Pharmacy 100.8 ml/min; Est GFR (African American) 108.1 ml/min; Est GFR (Non-African American) 93.2 ml/min; Potassium 4.3 mmol/L (3.5-5.1)
[2021-06-24] MEDS ORDERED: POLYETHYLENE (MIRALAX) 17 GM PACK PO PRN (09:51)
[2021-06-24] MEDS ORDERED: POLYETHYLENE (MIRALAX) 17 GM PACK PO ONE (09:51)
[2021-06-24] MEDS: [UNRECOGNIZED DRUG - REMARK] SCH (10:18)
--- NOTE | 2021-06-24 18:19 | Hospitalist Progress Note ---
Date of Service June 24, 2021 Assessment & Plan (1) Liver lesion: (2) Sacral decubitus ulcer, stage II: (3) Weakness: Plan: IMAGIN/27 CXR: no acute process 06/22 CT Head: 1. No acute intracranial abnormality. 2. Chronic infarcts of the right temporal and occipital lobes. 3. Chronic lacunar infarct of the right thalamus. 06/22 CTAP: 1. Redemonstration of multiple hypoattenuating likely metastatic liver lesions with mild interval enlargement as detailed above. 2. No acute inflammatory intra-abdominal process is seen. Nondilated loops of bowel. 3. Contracted gallbladder which limits evaluation. 4. Redemonstration of horseshoe kidneys. Stable renal cysts. 5. Gastrostomy tube is in place. 6. Stable multiple retroperitoneal lymph nodes measuring less than 1 cm in short axis. 7. The rest of findings as above. ASSESSMENT AND PLAN: Pt presented 06/23 with complaints of generalized weakness, ambulatory dysfunction. He is being managed in the floor for the following: #. Fever Pt had a spike of fever 39.1C on 06/23 early AM, started on Zosyn, awaiting Bl culture. source unknown at present. WBC 6.04K today will send procal in the first sample collected this admission Pt denies cough, belly pain. Will send Deep wound culture. Cultures negative so far. F/u on the result, Will assess for transitioning to oral ATB tomorrow #. Weakness multifactorial: metastatic cancer, anemia, chronic deconditioning Hb stable, replacing iron and vitamin B12 TSH and fT4 WNL PT/OT onboard - recommends inpatient rehab -PEG tube in place from recent radiation and chemo treatments -Continue tube feedings #. Hyponatremia mild, Na at 134, improving from 131 yesterday, f/u BMP tomorrow. #. Anemia: Hb at presentation 7.2; outpatient labs on 06/08 showed Hgb 8.4 (previous baseline ~ 11.0). Stool for fecal occult blood was negative. Iron level was found to be low and vitamin B12 level was on the low end of normal. Patient was started on iron and vitamin B12 replacement. No obvious signs of bleeding, anemia likely multifactorial due to nutritional deficiency and possible underlying malignancy S/p 1 unit leucoreduced blood 06/22 Hemoglobin 7.9 today, continue to monitor daily hemoglobin. Transfuse for hemoglobin less than 7. #. Liver lesion: CT abdomen pelvis: See above Scheduled for biopsy 06/[address] 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 Continue to monitor #. Elevated LFTs: #. Elevated lactic acid level: Lactate normal. Mild elevation in AST and ALP noted. Bilirubin level normal. Continue to monitor #. Sacral decubitus ulcer, stage II: -Present on admission -Wound care consult #. Diabetes mellitus, type 2: -Hgb A1c 6.4 01/2021 -continue to Hold oral agents and utilize NovoLog per protocol while hospitalized #. History of CVA (cerebrovascular accident): -Continue aspirin and statin #. Constipation on prn miralax #. DVT prophylaxis: -SCDs + subcu lovenox Disposition: Will transition him to oral antibiotic tomorrow. Hemoglobin has been stable - will follow tomorrow AM. He will be ready to be discharged to inpatient Rehab (current work on [facility] going on) unless new issues arise. Admission and Anticipated Discharge Date Admission Date: June 23, 2021 Subjective Patient was lying down in bed, NAD, on RA. Patient denies Headache, Dizziness, Fever today, Chills, Sore throat, Cough, Chest pain, palpitations, SOB, Belly pain. Last Bowel movement [yesterday]. No issues overnight. Feels more tired today and not as better as yesterday. Urinary catheter in situ with yellow urine collection. No acute events overnight. Pt states he had bowel movement few days ago, will start him on some form of laxatives. Physical Exam Physical Exam: GENERAL: Alert and oriented x3. NAD, on RA. Tube Feed in place. HEENT: No pallor, no icterus. Pupils equal, round and reactive to light. Oral mucosa moist. NECK: No JVD, no neck masses. HEART: S1 and S2 heard. Regular rate and rhythm. No murmur, no gallop. RESPIRATORY SYSTEM: Normal AP diameter. No accessory muscle use. No wheezing, no crackles. ABDOMEN: Soft, bowel sounds present, nontender, no distention. PEG tube in situ. CENTRAL NERVOUS SYSTEM: Alert and oriented x3. No facial droop. Speech is clear. Obeys simple commands. Moves extremities. EXTREMITIES: No edema, no erythema seen. Results & Data Results & Data ([facility]) Vital Signs (Past 12 Hours) Vital Signs Temp Pulse Pulse Resp BP Pulse Ox 06/24/21 16:24 72 06/24/21 15:33 37.0 C 69 20 92/53 L 93 06/24/21 11:31 36.7 C 70 19 103/62 94 06/24/21 11:02 78 06/24/21 07:55 36.6 C 75 20 113/71 93
[2021-06-24] MEDS: FIBERSOURCE HN 1.2 CAL 1000 ML BAG GT SCH (20:40)
[2021-06-24] MEDS: PROSOURCE NO CARB 30 ML/PKT GT SCH (20:40)
[2021-06-24] MEDS: MIRTAZAPINE TAB 15 MG TAB PO SCH (20:40)
[2021-06-25] MEDS: TUBE FEEDING WATER FLUSH GT SCH ×5 (02:43→18:36)
[2021-06-25] MEDS: PIPERACILLIN/TAZOBACTAM 3.375 GM in DEXTROSE 5% 100 ML IV SCH ×2 (03:13→11:14)
[2021-06-25 07:39] LABS: Hematocrit (blood only) 26.9 % (42-52); Hemoglobin 8.2 g/dL (14.0-18.0); Mean Corpuscular Hemoglobin 25.2 pg (25-34); Mean Corpuscular Hgb Conc 30.5 g/dL (32-36); Mean Corpuscular Volume 82.5 fL (80-100); Mean Platelet Volume 9.3 fL (7.4-10.4); Platelet Count 284 K/uL (130-400); RDW Coefficient of Variation 15.6 % (11.5-14.5); RDW Standard Deviation 47.6 fL (36.4-46.3); Red Blood Count 3.26 M/uL (4.7-6.1); White Blood Count 4.86 K/uL (4.8-10.8)
[2021-06-25 08:14] LABS: BUN Creatinine Ratio 27.6 (10-20); Calcium 8.8 mg/dl (8.5-10.1); Creatinine Clr Calc Pharmacy 103.5 ml/min; Est GFR (African American) 109.2 ml/min; Est GFR (Non-African American) 94.3 ml/min; Potassium 4.2 mmol/L (3.5-5.1)
[2021-06-25] MEDS: INSULIN ASPART 100 UNITS/ML 3 ML PEN SC SCH ×3 (09:07→16:55)
[2021-06-25] MEDS: FERROUS SULFATE 325 MG TAB PO SCH (09:08)
[2021-06-25] MEDS: PANTOprazole 40 MG TAB PO SCH (09:08)
[2021-06-25] MEDS: CYANOCOBALAMIN 500 MCG TABLET (VITAMIN B-12) PO SCH (09:08)
[2021-06-25] MEDS: ENOXAPARIN INJ 30 MG/0.3 ML SYR SQ SCH (09:09)
[2021-06-25] MEDS: GABAPENTIN 300 MG CAP PO SCH (09:09)
[2021-06-25] MEDS: METOPROLOL SUCC 25MG EXT REL TAB PO SCH (09:09)
[2021-06-25] MEDS: ESCITALOPRAM OXALATE 20 MG TAB PO SCH (09:09)
--- NOTE | 2021-06-25 09:32 | Hospitalist Progress Note ---
Date of Service June 25, 2021 Assessment & Plan (1) Liver lesion: (2) Sacral decubitus ulcer, stage II: (3) Weakness: Plan: IMAGIN/27 CXR: no acute process 06/22 CT Head: 1. No acute intracranial abnormality. 2. Chronic infarcts of the right temporal and occipital lobes. 3. Chronic lacunar infarct of the right thalamus. 06/22 CTAP: 1. Redemonstration of multiple hypoattenuating likely metastatic liver lesions with mild interval enlargement as detailed above. 2. No acute inflammatory intra-abdominal process is seen. Nondilated loops of bowel. 3. Contracted gallbladder which limits evaluation. 4. Redemonstration of horseshoe kidneys. Stable renal cysts. 5. Gastrostomy tube is in place. 6. Stable multiple retroperitoneal lymph nodes measuring less than 1 cm in short axis. 7. The rest of findings as above. ASSESSMENT AND PLAN: Pt presented 06/23 with complaints of generalized weakness, ambulatory dysfunction. He is being managed in the floor for the following: #. Fever Pt had a spike of fever 39.1C on 06/23 early AM, started on Zosyn, awaiting Bl culture. source unknown at present. WBC WNL Pt denies cough, belly pain. Cultures negative so far. F/U with 06/22 Blood Cx and 06/24 Wound Culture after discharge. Pt discharged on Doxy and cephalexin. #. Weakness multifactorial: metastatic cancer, anemia, chronic deconditioning Hb stable, c/w iron and vitamin B12 TSH and fT4 WNL PT/OT onboard - recommends inpatient rehab PEG tube in place from recent radiation and chemo treatments Continue tube feedings #. Hyponatremia mild, Na at 134, improving from 131 yesterday, f/u BMP tomorrow. #. Anemia: Hb at presentation 7.2; outpatient labs on 06/08 showed Hgb 8.4 (previous baseline ~ 11.0). Stool for fecal occult blood was negative. Iron level was found to be low and vitamin B12 level was on the low end of normal. Patient was started on iron and vitamin B12 replacement. No obvious signs of bleeding, anemia likely multifactorial due to nutritional deficiency and possible underlying malignancy S/p 1 unit leukoreduced blood 06/22 Hemoglobin 8.2 today Needs CBC in a week's time as an outpatient. #. Liver lesion: CT abdomen pelvis: See above Scheduled for biopsy 06/[address] 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 Continue to monitor #. Elevated LFTs: #. Elevated lactic acid level: Lactate normal. Mild elevation in AST and ALP noted. Bilirubin level normal. Continue to monitor #. Sacral decubitus ulcer, stage II: -Present on admission -Wound care consulted #. Diabetes mellitus, type 2: -Hgb A1c 6.4 01/2021 -continue to Hold oral agents and utilize NovoLog per protocol while hospitalized #. History of CVA (cerebrovascular accident): -Continue aspirin and statin #. Constipation on prn miralax #. DVT prophylaxis: -SCDs + subcu lovenox. Will be DC'd at Discharge. Disposition: Discharged to acute inpatient rehab. Following message was communicated: Admission and Anticipated Discharge Date Admission Date: June 23, 2021 Subjective Patient was lying down in bed, NAD, on RA. Patient denies Headache, Dizziness, Fever today, Chills, Sore throat, Cough, Chest pain, palpitations, SOB, Belly pain. Last Bowel movement [yesterday] x2. No issues overnight. Feels about the same/somewhat better than yesterday. Urinary catheter in situ with yellow urine collection. No acute events overnight. He "dosed on and off". Physical Exam Physical Exam: GENERAL: Alert and oriented x3. NAD, on RA. Tube Feed in place at 65 ml/hr. HEENT: No pallor, no icterus. Pupils equal, round and reactive to light. Oral mucosa moist. NECK: No JVD, no neck masses. HEART: S1 and S2 heard. Regular rate and rhythm. No murmur, no gallop. RESPIRATORY SYSTEM: Normal AP diameter. No accessory muscle use. No wheezing, no crackles. ABDOMEN: Soft, bowel sounds present, nontender, no distention. PEG tube in situ. CENTRAL NERVOUS SYSTEM: Alert and oriented x3. No facial droop. Speech is clear. Obeys simple commands. Moves extremities. EXTREMITIES: No edema, no erythema seen. Sacral decubitus look erythematous but no pus noted. Stage III Results & Data Results & Data ([facility]) Vital Signs (Past 12 Hours) Vital Signs Temp Pulse Pulse Resp BP Pulse Ox 06/25/21 07:42 36.9 C 66 18 110/69 95 06/25/21 07:41 74 06/25/21 03:45 71 06/25/21 03:00 37.3 C 74 18 119/71 92 06/24/21 23:00 36.9 C 65 18 124/74 92
[2021-06-25] MEDS: [UNRECOGNIZED DRUG - REMARK] SCH (10:12)
[2021-06-25 15:08] VITALS: TEMP 97.5; O2SAT 97
[2021-06-25 18:16] VITALS: PULSE 81
--- NOTE | 2021-06-25 18:17 | Discharge Summary ---
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 Patient completed chemotherapy and radiation therapy 03/2021. Since completing treatment, he was reporting increasing generalized weakness and very poor appetite. Outpatient labs were obtained that showed elevated LFTs which prompted CT scan of the abdomen that showed numerous hepatic lesions highly suggestive of hepatic metastases. Labs on 06/08 showed Hgb 8.4 (previous baseline ~ 11.0). Stool for fecal occult blood was negative. Iron level was found to be low and vitamin B12 level was on the low end of normal. Patient was started on iron and vitamin B12 replacement. Patient sister is the bedside who provides some history. She reports over the past few days, patient's weakness has been getting progressively worse. Patient is barely able to ambulate with his walker. This morning while in the shower, patient reports he slipped and fell. He reports he did strike his head however no loss of consciousness. Patient's sister, caregiver, and girlfriend were all at the house and had difficulty getting the patient up off the floor. Patient was brought to the ED for further evaluation. Patient reports an extremely poor appetite. He continues to receive tube feeds. He has some vomiting at times. Denies hematemesis or coffee-ground emesis. Reports chronic diarrhea which is unchanged from baseline. No bright lamp rectum or dark tarry stools. Denies any other recent illnesses, fevers, chills. No chest pain or shortness of breath. Denies lightheadedness, dizziness, diaphoresis, syncopal events. No urinary symptoms. In the ED, labs show Hgb 7.2, Na+ 131, lactate 3.7, AST 138, alk phos 259. Infectious work-up unremarkable. Patient is hemodynamically stable. He received IVF and IV Zofran. Admission Exam Per Admitting Provider Constitutional: WD/WN, vitals as above + ill appearing (Chronically) Eyes: PERRL, conjunctivae normal, anicteric sclerae ENMT: Ears: no external ear abnormality Nose: no external nose abnormality Mouth: + dry oral mucous membranes Respiratory: normal respiratory effort, lungs clear to auscultation Cardiovascular: Rate/Rhythm: regular rate and regular rhythm Vessels: normal peripheral pulses Extremities: no edema Gastrointestinal (Abdomen): normal bowel sounds, soft, nontender, no hepatosplenomegaly PEG tube in place, no surrounding erythema or drainage Musculoskeletal: Extremities: no cyanosis and no clubbing Left hemiparesis Skin: no rashes, warm and dry Small stage II sacral decubitus ulcer Neurologic: PERRL, EOMI, accommodation nl, no face palsy, no dysarthria Psychiatric: A+Ox3, euthymic affect Principal Diagnosis Weakness Anemia Possible wound infection Discharge Exam as per today's progress note. Discharge Data Allergies Allergy/AdvReac Type Severity Reaction Status Date / Time No Known Allergies Allergy Verified 06/22/21 10:41 Consultations 06/22/21 11:29 ED Decision to Admit Stat 06/22/21 14:11 Consult Palliative Care Routine Ordered Studies 06/22/21 09:38 CT head/brain wo con Stat 06/22/21 11:02 CT abd pelvis IV con only Stat Hospital Course (1) Liver lesion: (2) Sacral decubitus ulcer, stage II: (3) Weakness: IMAGIN/27 CXR: no acute process 06/22 CT Head: 1. No acute intracranial abnormality. 2. Chronic infarcts of the right temporal and occipital lobes. 3. Chronic lacunar infarct of the right thalamus. 06/22 CTAP: 1. Redemonstration of multiple hypoattenuating likely metastatic liver lesions with mild interval enlargement as detailed above. 2. No acute inflammatory intra-abdominal process is seen. Nondilated loops of bowel. 3. Contracted gallbladder which limits evaluation. 4. Redemonstration of horseshoe kidneys. Stable renal cysts. 5. Gastrostomy tube is in place. 6. Stable multiple retroperitoneal lymph nodes measuring less than 1 cm in short axis. 7. The rest of findings as above. ASSESSMENT AND PLAN: Pt presented 06/23 with complaints of generalized weakness, ambulatory dysfunction. He is being managed in the floor for the following: #. Fever Pt had a spike of fever 39.1C on 06/23 early AM, started on Zosyn, awaiting Bl culture. source unknown at present. WBC WNL Pt denies cough, belly pain. Cultures negative so far. F/U with 06/22 Blood Cx and 06/24 Wound Culture after discharge. Pt discharged on Doxy and cephalexin. #. Weakness multifactorial: metastatic cancer, anemia, chronic deconditioning Hb stable, c/w iron and vitamin B12 TSH and fT4 WNL PT/OT onboard - recommends inpatient rehab PEG tube in place from recent radiation and chemo treatments Continue tube feedings #. Hyponatremia mild, close to low normal and stable around 134. #. Anemia: Hb at presentation 7.2; outpatient labs on 06/08 showed Hgb 8.4 (previous baseline ~ 11.0). Stool for fecal occult blood was negative. Iron level was found to be low and vitamin B12 level was on the low end of normal. Patient was started on iron and vitamin B12 replacement. No obvious signs of bleeding, anemia likely multifactorial due to nutritional deficiency and possible underlying malignancy S/p 1 unit leukoreduced blood 06/22 Hemoglobin 8.2 today Needs CBC in a week's time as an outpatient. #. Liver lesion: CT abdomen pelvis: See above Scheduled for biopsy 06/[address] 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 Continue to monitor #. Elevated LFTs: #. Elevated lactic acid level: Lactate normal. Mild elevation in AST and ALP noted. Bilirubin level normal. Continue to monitor #. Sacral decubitus ulcer, stage II: -Present on admission -Wound care consulted #. Diabetes mellitus, type 2: -Hgb A1c 6.4 01/2021 -continue to Hold oral agents and utilize NovoLog per protocol while hospitalized #. History of CVA (cerebrovascular accident): -Continue aspirin and statin #. Constipation on prn miralax #. DVT prophylaxis: -SCDs + subcu lovenox. Will be DC'd at Discharge. Disposition: Discharged to acute inpatient rehab. Following message was communicated to the patient: Pending studies at Discharge time: which needs to be followed upon/contact PCP. Visit PCP in a week's time for transition of care evaluation. Maintain follow up with palliative care team. 06/22 Blood culture: no growth at 48 hours at time of discharge 06/24 Wound Cx: Pin-point growth at time of discharge Needs CBC as an outpatient in a week. Total Time Total Time Spent Total Time Spent (In Minutes): 50 Discharge Plan Discharge Items Patient Disposition: Transfer Inpatient Rehab Fac Reason For Visit: ANEMIA Discharge Diagnosis: Weakness Anemia Possible wound infection Condition on Discharge: Fair Activity: Resume your previous activity Non-emergency contact: Primary Care Provider Call non-emergency contact if: you have any medication questions Follow-up/Referrals: Ramsey Lira MD [Primary Care Provider] - Diet: Carb Count or DM1 and Full liquid Addtl Attending Provider Instructions: Have your wound taken care of on a regular basis, change the dressing every 3 days or as needed. Chair cushion, and position change every 30 min. F/U your primary care doctor within a week's time for re-evaluation and medicine adjustment as necessary. Pending Studies at Discharge: Yes Studies:: Pending studies at Discharge time: 06/22 Blood culture: no growth at 48 hours at time of discharge 06/24 Wound Cx: Pin-point growth at time of discharge Visit PCP within a week's time for transition of care evaluation. Maintain follow up with palliative care team. Needs CBC as an outpatient in a week. Stand-Alone Forms: [facility] Skilled Items Patient informed of condition?: Yes DNR: No Discharge Level of Care: Acute rehab Communicable Disease: No Discharge Prognosis: Stable Lines: None Urinary Catheter: No Medications and DC Order Prescriptions: New doxycycline hyclate 100 mg tablet 100 mg PO BID 11 Days Qty: 22 RF: 0 cephalexin 500 mg capsule 500 mg PO BID 7 Days Qty: 14 RF: 0 polyethylene glycol 3350 [Miralax] 17 gram/dose powder 17 g PO DAILY PRN (Reason: constipation) Qty: 510 RF: 0 Continued lactase [Lactaid] 3,000 unit tablet 3,000 unit PO TIDM PRN (Reason: .) RF: 0 aspirin [Ecotrin Low Strength] 81 mg Tablet,Delayed Release (Dr/Ec) 81 mg PO QAM Qty: 30 RF: 0 gabapentin [Neurontin] 300 mg Capsule 300 mg PO BID RF: 0 metoprolol succinate [Toprol XL] 25 mg tablet extended release 24 hr 25 mg PO QAM RF: 0 ondansetron 8 mg tablet,disintegrating 8 mg PO Q8H PRN (Reason: Nausea And Vomiting) RF: 0 lisinopril [Zestril] 5 mg tablet 2.5 mg PO HS RF: 0 mirtazapine [Remeron] 15 mg tablet 15 mg PO HS RF: 0 Ensure Liquid 5 ea feeding tube UD RF: 0 escitalopram oxalate [Lexapro] 20 mg tablet 20 mg PO QAM RF: 0 atorvastatin [Lipitor] 40 mg tablet 40 mg PO QAM RF: 0 metformin 500 mg tablet 500 mg PO BIDM RF: 0 cyanocobalamin (vitamin B-12) 1,000 mcg Tablet 1,000 mcg PO DAILY RF: 0 ferrous sulfate 325 mg (65 mg iron) Tablet 325 mg PO DAILY RF: 0 omeprazole 20 mg Capsule,Delayed Release(Dr/Ec) 20 mg PO BID RF: 0 Discharge Orders: Discharge Order (Routine); Ordered 06/25/21 Ordered By: Sarahi Hough Admission Data Admit Date/Time: 06/23/21 12:22 Attending Provider: Sarahi Hough Admit Provider: Mei Segundo Primary Care Provider: Ramsey Lira Other Providers: Mei Segundo ; [facility] ; [facility]
[2021-06-25 18:43] VITALS: BP 90/57
== END 2021-06-25 19:38 | DRG 436 ==
LOC: ED 09:21 → EDINP 09:21 → SUATTDRO 11:46 → 2N 18:05
DX: C01 Malignant neoplasm of base of tongue; Z86.73 Personal history of transient ischemic attack (TIA), and cerebral infarction without residual deficits; Z93.1 Gastrostomy status; D64.9 Anemia, unspecified; R62.7 Adult failure to thrive; E11.9 Type 2 diabetes mellitus without complications; Z79.84 Long term (current) use of oral hypoglycemic drugs; Z86.010 Personal history of colon polyps; E78.5 Hyperlipidemia, unspecified; C78.7 Secondary malignant neoplasm of liver and intrahepatic bile duct; L89.152 Pressure ulcer of sacral region, stage 2; E87.1 Hypo-osmolality and hyponatremia; I10 Essential (primary) hypertension; Z87.891 Personal history of nicotine dependence; Z83.3 Family history of diabetes mellitus; K59.00 Constipation, unspecified